=== PATIENT | male | born 1945 | race Caucasian/White ===

== ENCOUNTER 2017-06-18 07:23 | Day surgery (SDC) | payer MEDICARE, BC ==
[2017-06-18] MEDS ORDERED: Lidocaine 2% 20 ML MDV ONE (07:24)
[2017-06-18] MEDS ORDERED: Ketamine 500 mg/10 ML MDV IV ONE (07:24)
[2017-06-18] MEDS ORDERED: Propofol 200 MG/20 ML SDV IV ONE (07:24)
[2017-06-18] MEDS ORDERED: Sodium Chloride 0.9% 10 ML Syringe FLUSH PRN (07:45)
[2017-06-18] MEDS ORDERED: Lactated Ringers 1,000 ML IV SCH (07:45)
--- NOTE | 2017-06-18 09:42 | PCM.OPNOTE ---
- General Post-Op/Procedure Note Date of Surgery/Procedure: 06/18/17 Operative Procedure(s): egd Findings: gastritis fundic gland polyposis esophagitis Pre Op Diagnosis: melena Post-Op Diagnosis: gastritis. fundic gland polyposis. esophagitis Anesthesia Technique: ROSALINDA Primary Surgeon: Jaswant Mendoza Anesthesia Provider: Jaxson Shelton Pathology: none Complications: None Condition: Good Free Text/Narrative:: see dictation
[2017-06-18 10:50] VITALS: BP 138/74
--- NOTE | 2017-06-18 11:25 | OR ---
DATE OF OPERATION: 06/18/2017 SURGEON: Jaswant Mendoza MD PROCEDURE PERFORMED: Upper endoscopy. PREOPERATIVE DIAGNOSIS: History of melena. POSTOPERATIVE DIAGNOSIS: Fundic gland hyperplasia and gastritis as well as some esophagitis. INDICATIONS FOR PROCEDURE: This is a 72-year-old white male who was initially referred to me with a history of a positive FIT exam, who was also relating some GI issues or what appeared to be upper gastrointestinal issues. He does have a history of heart disease and was having some angina, and as a result while it appeared he needed both an upper and lower endoscopy, there was no urgency involved. However, he presented approximately a week later, noting black stools as well as some epigastric abdominal discomfort and we felt that an upper endoscopy was indicated to evaluate for possible peptic ulcer disease. He presents today for his upper endoscopy. Unfortunately, he was told to stop his Plavix 3 days before his procedure, which he failed to do. We did elect to proceed with just a simple endoscopy to look for ulcer disease. DESCRIPTION OF OPERATION: After an excellent IV sedation was administered, the bite block was inserted. Topical anesthetic gargle was also used. The flexible endoscope was passed without difficulty down the patient's esophagus into the stomach. The stomach was insufflated. The scope was passed through the pylorus to the second portion of the duodenum and slowly withdrawn. Following findings are noted. The duodenum was essentially unremarkable. Stomach, fundic gland hyperplasia noted as well as some linear gastritis. Photos were taken. Esophagus, some evidence of esophagitis, but no marked ulcerations or worrisome findings. Remainder of the esophageal exam was unremarkable. We are going to be putting him on some Carafate to take in addition to his Prilosec twice a day. I will have him follow up after his cardiac evaluation to proceed with his colonoscopy, and we will probably do an upper endoscopy at that point when we can do some biopsies. /[id number] /MODL
== END 2017-06-18 10:56 | disposition home or self-care (01) ==
LOC: FB.SDS 07:23
PROVIDERS: ATTEND Surgery
DX: K29.70 Gastritis, unspecified, without bleeding (principal); K21.0 Gastro-esophageal reflux disease with esophagitis; K31.89 Other diseases of stomach and duodenum; I25.10 Atherosclerotic heart disease of native coronary artery without angina pectoris; I10 Essential (primary) hypertension; E11.649 Type 2 diabetes mellitus with hypoglycemia without coma; E78.5 Hyperlipidemia, unspecified; I25.2 Old myocardial infarction; Z79.899 Other long term (current) drug therapy; Z88.0 Allergy status to penicillin; Z88.8 Allergy status to other drugs, medicaments and biological substances; Z95.5 Presence of coronary angioplasty implant and graft; Z87.891 Personal history of nicotine dependence
CPT/HCPCS: 43235; 82962; J2704; J7120; 00731-QZ

== ENCOUNTER 2017-09-11 07:21 | Day surgery (SDC) | payer MEDICARE, BC ==
[2017-09-11] MEDS ORDERED: Lactated Ringers 1,000 ML IV SCH (07:45)
[2017-09-11] MEDS ORDERED: Sodium Chloride 0.9% 10 ML Syringe FLUSH PRN (07:45)
[2017-09-11] MEDS ORDERED: Propofol 200 MG/20 ML SDV IV ONE (09:45)
[2017-09-11] MEDS ORDERED: Ketamine 500 mg/10 ML MDV IV ONE (09:45)
--- NOTE | 2017-09-11 10:50 | PCM.OPNOTE ---
- General Post-Op/Procedure Note Date of Surgery/Procedure: 09/11/17 Operative Procedure(s): c scope with bx Findings: descending colon polyp sigmoid diverticulosis rectal mucosal hyperplasia sigmoid polyp Pre Op Diagnosis: + FIT Post-Op Diagnosis: descending colon polyp. sigmoid diverticulosis. rectal mucosal hyperplasia. sigmoid polyp Anesthesia Technique: MAC Primary Surgeon: Jaswant Mendoza Anesthesia Provider: May Burton Pathology: descending colon polyp rectal mucosal hyperplasia sigmoid polyp Complications: None Condition: Good Free Text/Narrative:: see dictation
[2017-09-11 11:43] VITALS: BP 154/63
--- NOTE | 2017-09-11 14:34 | OR ---
DATE OF OPERATION: 09/11/2017 SURGEON: Jaswant Mendoza MD PROCEDURE PERFORMED: Colonoscopy with cold forceps biopsy. PREOPERATIVE DIAGNOSIS: Positive FIT. POSTOPERATIVE DIAGNOSIS: Descending colon polyp, sigmoid colon polyp x2, sigmoid diverticulosis and hyperplastic polyps of the rectum. INDICATIONS FOR PROCEDURE: This is a 72-year-old white male who is referred with a positive FIT. He was offered and accepted colonoscopy. DESCRIPTION OF OPERATION: After an excellent IV sedation was administered, digital rectal exam was performed. No marked abnormality was noted. The flexible colonoscope was inserted and advanced to the cecum without difficulty. The prep was good. We had to irrigate some areas with good view of the mucosa. The following findings were noted. Ascending colon, unremarkable. Transverse colon, unremarkable. Descending colon, small polypoid lesion. Biopsied and sent for permanent. Sigmoid; in the proximal and distal sigmoid, two small polypoid lesions biopsied with cold biopsy forceps and sent for permanent. Some moderate sigmoid diverticulosis was also noted. Rectum, what appeared to be multiple hyperplastic polyps were noted and loss control representative biopsies were taken of this area as well. The colon was deflated as the scope was removed. The patient tolerated the procedure well. Results by letter. /[id number] /MODL
== END 2017-09-11 11:50 | disposition home or self-care (01) ==
LOC: FB.SDS 07:21
PROVIDERS: ATTEND Surgery
DX: D12.4 Benign neoplasm of descending colon (principal); D12.5 Benign neoplasm of sigmoid colon; K57.30 Diverticulosis of large intestine without perforation or abscess without bleeding; K62.1 Rectal polyp; K63.5 Polyp of colon; I10 Essential (primary) hypertension; E11.649 Type 2 diabetes mellitus with hypoglycemia without coma; E78.5 Hyperlipidemia, unspecified; I25.10 Atherosclerotic heart disease of native coronary artery without angina pectoris; K21.9 Gastro-esophageal reflux disease without esophagitis; Z79.4 Long term (current) use of insulin; Z88.6 Allergy status to analgesic agent; Z88.0 Allergy status to penicillin
CPT/HCPCS: 00812; 45380; 82962; 88305; J2704; J7120

== ENCOUNTER 2018-07-19 09:42 | Emergency (ER) | payer MEDICARE, BC ==
[2018-07-19] MEDS ORDERED: Ibuprofen 600 MG Tab PO ONE (09:54)
--- NOTE | 2018-07-19 09:59 | EDM.PDOC ---
ED HPI GENERAL MEDICAL PROBLEM - General Stated Complaint: FALL, HURT LEFT ANKLE Time Seen by Provider: 07/19/18 09:42 Source of Information: Reports: Patient, Family History Limitations: Reports: No Limitations - History of Present Illness INITIAL COMMENTS - FREE TEXT/NARRATIVE: 73 y.o.w m with a h/o IDDM came with his to the ed afgter he fell under a truck with his left leg. Pt is not able to walk since. he came with is on the wheel chair to the ed. No N/V/D or dizziness or any other acute medical issues. BP 149/72 RR 17 Pulse ox 100% on RA Temp 97.5 Pulse 61 Onset Date: 07/19/18 Onset Time: 08:00 Duration: Hour(s): Location: Reports: Lower Extremity, Left Quality: Reports: Dull, Throbbing Severity: Moderate Improves with: Reports: Rest Worsens with: Reports: Movement Context: Reports: Trauma - Related Data Allergies Allergy/AdvReac Type Severity Reaction Status Date / Time Penicillins Allergy Intermediate Hives Verified 09/10/17 11:25 meloxicam AdvReac Intermediate CHEST PAIN Verified 09/10/17 11:25 WITH WEAKNESS Home Meds: Home Meds Clopidogrel [Plavix] 75 mg PO DAILY 06/17/17 [History] Insulin Glarg,Human.Rec.Analog [Lantus Solostar] 20 unit SUBCUT DAILY 06/17/17 [ History] Lisinopril [Prinivil] 40 mg PO DAILY 06/17/17 [History] Metoprolol Succinate [Toprol Xl] 25 mg PO DAILY 06/17/17 [History] Nitroglycerin [Nitrostat] 0.4 mg SL ASDIRECTED PRN 06/17/17 [History] Omeprazole Magnesium [Prilosec Otc] 20 mg PO BEDTIME 06/17/17 [History] atorvaSTATin [Lipitor] 40 mg PO BEDTIME 06/17/17 [History] glipiZIDE [Glipizide Xl] 10 mg PO BID 06/17/17 [History] Sucralfate [Carafate] 1 gm PO ACBED #120 tab 06/18/17 [Rx] Bismuth Subsalicylate [Pepto-Bismol] 30 ml PO ASDIRECTED 09/10/17 [History] Empagliflozin [Jardiance] 10 mg PO DAILY 09/10/17 [History] Fluticasone Propionate [Flonase] 1 spray NS BID 09/10/17 [History] Isosorbide Mononitrate [Imdur] 30 mg PO DAILY 09/10/17 [History] SitaGLIPtin [Januvia] 100 mg PO DAILY 09/10/17 [History] Past Medical History HEENT History: Reports: Cataract Cardiovascular History: Reports: Angina, High Cholesterol, Hypertension, [place], Stents Respiratory History: Reports: SOB Gastrointestinal History: Reports: Diverticulosis, GERD Genitourinary History: Reports: UTI, Recurrent, Other (See Below) Other Genitourinary History: POST-TRAUMATIC BULBOUS URETHRAL STRICTURE Musculoskeletal History: Reports: None Neurological History: Reports: None Psychiatric History: Reports: None Endocrine/Metabolic History: Reports: Diabetes, Type II Hematologic History: Reports: None Immunologic History: Reports: None Oncologic (Cancer) History: Reports: None Dermatologic History: Reports: Cellulitis Other Dermatologic History: CELLULITIS OF RIGHT LEG POST TRAUMA. - Infectious Disease History Infectious Disease History: Reports: Chicken Pox, Measles, Mumps - Past Surgical History Male Surgical History: Reports: Vasectomy Social & Family History - Family History GI: Reports: Colon Polyps Other GI Family History: DAD OF COLON CA - Caffeine Use Caffeine Use: Reports: Coffee, Soda Review of Systems - Review of Systems Review Of Systems: See Below Constitutional: Reports: No Symptoms Eyes: Reports: No Symptoms Ears: Reports: No Symptoms Nose: Reports: No Symptoms Mouth/Throat: Reports: No Symptoms Respiratory: Reports: No Symptoms Cardiovascular: Reports: No Symptoms GI/Abdominal: Reports: No Symptoms Genitourinary: Reports: No Symptoms Musculoskeletal: Reports: Other (ankle swelling) Skin: Reports: No Symptoms Neurological: Reports: No Symptoms Psychiatric: Reports: No Symptoms ED EXAM, GENERAL - Physical Exam Exam: See Below Exam Limited By: No Limitations General Appearance: Alert, WD/WN, Moderate Distress Eye Exam: Bilateral Eye: Normal Inspection Ears: Normal External Exam Ear Exam: Bilateral Ear: Auricle Normal Nose: Normal Inspection, Normal Mucosa Throat/Mouth: Normal Lips, Normal Voice, No Airway Compromise Head: Atraumatic, Normocephalic Neck: Normal Inspection, Supple, Non-Tender, Full Range of Motion Respiratory/Chest: No Respiratory Distress, Lungs Clear, Normal Breath Sounds Cardiovascular: Normal Peripheral Pulses, Regular Rate, Rhythm, No Edema, No Gallop Peripheral Pulses: 2+: Carotid (L) GI/Abdominal: Normal Bowel Sounds, Soft, Non-Tender, No Organomegaly, No Abnormal Bruit, No Mass, Pelvis Stable (Male) Exam: Deferred Rectal (Males) Exam: Deferred Back Exam: Normal Inspection Extremities: Joint Swelling (left ankle) Neurological: Alert, Oriented, CN II-XII Intact, Normal Cognition, Abnormal Gait (left ankle pain and swelling) Psychiatric: Normal Affect, Normal Mood Skin Exam: Warm, Dry, Intact, Normal Color Lymphatic: No Adenopathy ED TRAUMA EXTREMITY PROCEDURES - Splinting Left Lower Extremity Splint Site: short , posterior splint left lower extremity Pre-Procedure NV Status: Normal Post-Procedure NV Status: Normal Splint Material: Fiberglass Splint Design: Posterior Applied & Form Fitted By: Provider Provider Post-Splint Application NV Check: NV Status Normal, Good Position Complications: No Course - Vital Signs Text/Narrative:: 73 y.o.w m with a h/o IDDM came with his to the ed afgter he fell under a truck with his left leg. Pt is not able to walk since. he came with is on the wheel chair to the ed. No N/V/D or dizziness or any other acute medical issues. BP 149/72 RR 17 Pulse ox 100% on RA Temp 97.5 Pulse 61 PE: WNWD W M with left ankle pain/swelling Imaging: Fx'd mils displace left distal fibula Labs: Not indicated Impression: Left distal fibula fx with displacement Tx: Motrin, Post short splint placement Reexam: Improved Plan: D/C with instructions Last Recorded V/S: Last Vital Signs Temp Pulse Resp 17 07/19/18 12:05 BP 149/72 H 07/19/18 12:05 Pulse Ox 100 07/19/18 12:05 - Orders/Labs/Meds Orders: Active Orders 24 hr Category Date Time Status Accu Check [Blood Glucose Check, Bedside] [RC] ONETIME Care 07/19/18 09:56 Active Cooling Warming Measures [RC] ASDIRECTED Care 07/19/18 09:54 Active Ankle Min 3V Lt [CR] Stat Exams 07/19/18 09:54 Taken Ice Bag [Ice Therapy] [OM.PC] Routine Oth 07/19/18 09:54 Ordered Meds: Medications Discontinued Medications Generic Name Dose Route Start Last Admin Trade Name Candace PRN Reason Stop Dose Admin Ibuprofen 600 mg 07/19/18 09:54 07/19/18 10:07 Motrin PO 07/19/18 09:55 600 mg ONETIME ONE Administration Departure - Departure Time of Disposition: 11:53 Disposition: Home, Self-Care 01 Condition: Good Clinical Impression: Fibula fracture Qualifiers: Encounter type: initial encounter Fracture type: closed Laterality: left - Discharge Information Referrals: Jose R Shahid MD [Primary Care Provider] - Ritchie Granados DO [Physician] - Forms: ED Department Discharge Additional Instructions: Rest, Ice elevation, please use crutches, no weight bearing. Please f/u with Dr. Granados this Friday. Motrin for pain. Please come back if your symptoms get worse acutely - My Orders Last 24 Hours: My Active Orders 07/19/18 09:54 Cooling Warming Measures [RC] ASDIRECTED Ankle Min 3V Lt [CR] Stat Ice Bag [Ice Therapy] [OM.PC] Routine 07/19/18 09:56 Accu Check [Blood Glucose Check, Bedside] [RC] ONETIME - Assessment/Plan Last 24 Hours: My Active Orders 07/19/18 09:54 Cooling Warming Measures [RC] ASDIRECTED Ankle Min 3V Lt [CR] Stat Ice Bag [Ice Therapy] [OM.PC] Routine 07/19/18 09:56 Accu Check [Blood Glucose Check, Bedside] [RC] ONETIME
[2018-07-19 12:11] VITALS: BP 149/72
--- NOTE | 2018-07-20 10:39 | CR ---
INDICATION: Slipped and rolled ankle. LEFT ANKLE: Three views of the left ankle were obtained, 07/19/18 - no comparisons. Soft tissue swelling is noted about the ankle, most prominent medially. The ankle mortise appeared to be slightly askew with widening at the medial ankle mortise and very minimal inversion of the talus with respect to the tibia. An oblique fracture through the distal shaft and metaphysis of the fibula is noted with mild deformity - posterior and lateral offset of the distal fracture fragment of approximately 3-4 mm. 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 Plantar and posterior calcaneal spurs of small size are noted. IMPRESSION: Lateral malleolar fracture with subluxation at the ankle mortise - lateral subluxation minimally of the talus with slight inversion of the talus. Ligamental injury medially is suspected. The ankle mortise may be unstable - followup studies such as MRI may be helpful for further evaluation, depending upon clinical correlation. DEX
== END 2018-07-19 12:24 | disposition home or self-care (01) ==
LOC: FB.ED 09:42
DX: S82.832A Other fracture of upper and lower end of left fibula, initial encounter for closed fracture (principal); I25.2 Old myocardial infarction; I10 Essential (primary) hypertension; E11.9 Type 2 diabetes mellitus without complications; Z88.0 Allergy status to penicillin; Z88.1 Allergy status to other antibiotic agents; Z79.899 Other long term (current) drug therapy; V98.8XXA Other specified transport accidents, initial encounter
CPT/HCPCS: 29515; 73610-LT; 99283; A9270-GY

== ENCOUNTER 2020-04-18 06:40 | Day surgery (SDC) | payer MEDICARE, BC ==
[2020-04-18] MEDS ORDERED: fentaNYL 100 MCG/2 ML SDV IV ONE (06:41)
[2020-04-18] MEDS ORDERED: Midazolam 1 MG/ML 2 ML SDV IV ONE (06:41)
[2020-04-18] MEDS ORDERED: Sodium Chloride 0.9% 10 ML Syringe FLUSH PRN (06:45)
[2020-04-18] MEDS ORDERED: Lactated Ringers 1,000 ML IV SCH (06:45)
[2020-04-18] MEDS ORDERED: acetaZOLAMIDE 500 MG Cap.ER PO ONE (08:30)
--- NOTE | 2020-04-18 10:57 | OR ---
DATE OF OPERATION: 04/18/2020 SURGEON: Ana Rivas MD PREOPERATIVE DIAGNOSIS: Visually significant cataract, right eye. POSTOPERATIVE DIAGNOSIS: Visually significant cataract, right eye. PROCEDURES PERFORMED: Phacoemulsification with intraocular lens placement, right eye. ASSISTANTS: None. ANESTHESIA: Local with sedation. COMPLICATIONS: None. BLOOD LOSS: None. IMPLANTS: An Sivakumar ACU0T0, 22.0 diopter lens, serial number [id number] implanted. CDE: 6.52. DESCRIPTION OF PROCEDURE: After risks and benefits were reviewed with the patient, consent was obtained in the preoperative area, and the operative eye was marked with a surgical pen. In the preoperative area, a pledget was used to dilate the pupil consisting of a mixture of phenylephrine 10%, cyclopentolate 2%, moxifloxacin 0.5%, and bupivacaine 0.75%. The patient was taken to the operating room, where a time-out was performed, and the patient was placed under monitored anesthesia care. Topical tetracaine was used for anesthesia. The operative eye was prepped and draped for ophthalmic surgery, and the microscope was brought into position and focused. A paracentesis incision was made, followed by injection of preservative-free 1% lidocaine into the anterior chamber, followed by injection of Viscoat into the anterior chamber. A microkeratome blade was used to make a corneal limbal incision temporally. A cystotome was used to make the beginning of the capsulorrhexis, which was carried around 360 degrees in a curvilinear fashion using Utrata forceps. A Rodriguez cannula with BSS was used to hydrodissect and hydrodelineate the nucleus. The nucleus was removed in a divide and conquer manner using phacoemulsification. Irrigation and aspiration were used to remove the remaining cortical material. Provisc was used to inflate the capsular bag, and a pre-loaded Sivakumar ACU0T0, 22.0 diopter lens, serial number [id number] was injected into the capsular bag. A Sinskey hook was used to position and center the lens. Next, irrigation and aspiration was used to remove any remaining viscoelastic and cortical material from the anterior chamber. BSS on a cannula was used to inflate the anterior chamber and hydrate the wound. The wound was checked and found to be watertight. 1 mg of Moxifloxacin was injected into the anterior chamber. Drapes were removed and the eye was cleaned. A drop of brimonidine 0.15% and a drop of TobraDex was placed. The eye was shielded, and the patient was taken to the recovery room in stable condition. /[id number] EMMANUEL/LUZ
[2020-04-18 14:42] VITALS: BP 135/72; PULSE 59
== END 2020-04-18 09:15 | disposition home or self-care (01) ==
LOC: FB.SDS 06:40
PROVIDERS: ATTEND Ophthalmology
DX: E11.36 Type 2 diabetes mellitus with diabetic cataract (principal); H25.13 Age-related nuclear cataract, bilateral; I25.10 Atherosclerotic heart disease of native coronary artery without angina pectoris; H35.033 Hypertensive retinopathy, bilateral; H43.813 Vitreous degeneration, bilateral; H35.031 Hypertensive retinopathy, right eye; E11.319 Type 2 diabetes mellitus with unspecified diabetic retinopathy without macular edema; I10 Essential (primary) hypertension; Z88.0 Allergy status to penicillin; Z79.899 Other long term (current) drug therapy; Z79.4 Long term (current) use of insulin
CPT/HCPCS: 00142; 66984; A9270; J2250; J3010; J7120; V2632; 82962

== ENCOUNTER 2020-05-02 06:45 | Day surgery (SDC) | payer MEDICARE, BC ==
[~2020-05-02 06:45] MED LIST: Lactated Ringers 1,000 ML IV SCH; Sodium Chloride 0.9% 10 ML Syringe FLUSH PRN
[2020-05-02] MEDS ORDERED: Midazolam 1 MG/ML 2 ML SDV IV ONE (06:46)
[2020-05-02] MEDS ORDERED: fentaNYL 100 MCG/2 ML SDV IV ONE (06:46)
[2020-05-02] MEDS ORDERED: acetaZOLAMIDE 500 MG Cap.ER PO ONE (08:30)
[2020-05-02 10:51] VITALS: BP 146/76; PULSE 69
--- NOTE | 2020-05-03 09:59 | OR ---
DATE OF OPERATION: 05/02/2020 SURGEON: Ana Rivas MD PREOPERATIVE DIAGNOSIS: Visually significant cataract, left eye. POSTOPERATIVE DIAGNOSIS: Visually significant cataract, left eye. PROCEDURES PERFORMED: Phacoemulsification with intraocular lens placement, left eye. ASSISTANTS: None. ANESTHESIA: Local with sedation. COMPLICATIONS: None. BLOOD LOSS: None. IMPLANTS: An Sivakumar ACU0T0, 22.0 diopter lens implanted. CDE: 4.22. DESCRIPTION OF PROCEDURE: After risks and benefits were reviewed with the patient, consent was obtained in the preoperative area, and the operative eye was marked with a surgical pen. In the preoperative area, a pledget was used to dilate the pupil consisting of a mixture of phenylephrine 10%, cyclopentolate 2%, moxifloxacin 0.5%, and bupivacaine 0.75%. The patient was taken to the operating room, where a time-out was performed, and the patient was placed under monitored anesthesia care. Topical tetracaine was used for anesthesia. The operative eye was prepped and draped for ophthalmic surgery, and the microscope was brought into position and focused. A paracentesis incision was made, followed by injection of preservative-free 1% lidocaine into the anterior chamber, followed by injection of Viscoat into the anterior chamber. A microkeratome blade was used to make a corneal limbal incision temporally. A cystotome was used to make the beginning of the capsulorrhexis, which was carried around 360 degrees in a curvilinear fashion using Utrata forceps. A Rodriguez cannula with BSS was used to hydrodissect and hydrodelineate the nucleus. The nucleus was removed in a divide and conquer manner using phacoemulsification. Irrigation and aspiration were used to remove the remaining cortical material. Provisc was used to inflate the capsular bag, and a pre-loaded Sivakumar ACU0T0, 22.0 diopter lens, serial number [id number] was injected into the capsular bag. A Sinskey hook was used to position and center the lens. Next, irrigation and aspiration was used to remove any remaining viscoelastic and cortical material from the anterior chamber. BSS on a cannula was used to inflate the anterior chamber and hydrate the wound. The wound was checked and found to be watertight. 1 mg of Moxifloxacin was injected into the anterior chamber. Drapes were removed and the eye was cleaned. A drop of brimonidine 0.15% and a drop of TobraDex was placed. The eye was shielded, and the patient was taken to the recovery room in stable condition. /[id number] EMMANUEL/LUZ
== END 2020-05-02 09:15 | disposition home or self-care (01) ==
LOC: FB.SDS 06:45
PROVIDERS: ATTEND Ophthalmology
DX: E11.36 Type 2 diabetes mellitus with diabetic cataract (principal); H25.12 Age-related nuclear cataract, left eye; H35.033 Hypertensive retinopathy, bilateral; H43.813 Vitreous degeneration, bilateral
CPT/HCPCS: 00142-QZ; A9270-GY; J2250; J3010; J7120; V2632

== ENCOUNTER 2020-06-21 15:58 | Inpatient (IN) | payer MEDICARE, BC ==
[2020-06-21] MEDS ORDERED: Ondansetron 4 MG Tab.DIS PO PRN (16:55)
[2020-06-21] MEDS ORDERED: Sodium Chloride 0.9% 10 ML Syringe FLUSH PRN (16:55)
[2020-06-21] MEDS ORDERED: Glucagon,Human Recombinant 1 MG Vial IM PRN (17:02)
[2020-06-21] MEDS ORDERED: 50% Dextrose in Water 50 ML Syringe IVPUSH PRN (17:02)
[2020-06-21] MEDS ORDERED: Albuterol 8 GM Inhaler INH PRN (17:03)
[2020-06-21] MEDS ORDERED: Nitroglycerin 0.4 MG Tab.SL SL PRN (17:03)
[2020-06-21] MEDS: Sodium Chloride 0.9% 1,000 ML IV SCH (17:17)
[2020-06-21] MEDS: Dexamethasone 4 MG/ML 5 ML MDV IVPUSH SCH (17:20)
--- NOTE | 2020-06-21 17:20 | PCM.HP.2 ---
H&P History of Present Illness - General Date of Service: 06/21/20 Admit Problem/Dx: Admission Diagnosis/Problem Admission Diagnosis/Problem Pneumonia Source of Information: Patient, Provider History Limitations: Reports: Physical Impairment (hard of hearing & some neurocognitive issues) - History of Present Illness Initial Comments - Free Text/Narative: Jose R was seen in [facility] today for 7 days of fever, fatigue, shortness of breath, cough, runny nose but no sore throat, chest pain, nausea, vomiting, diarrhea, constipation. Denies any dysuria, frequency, dark urine. States his last bowel movement was yesterday, yellow chunks but not liquid. Temp in clinic today was 101F, Covid was positive and had bilateral infiltrates on chest x-ray, no other labs done in clinic. He is very hard of hearing and has some neurocognitive deficits, on Aricept. History of Diabetes on insulin, poorly controlled, pacemaker, hypertension, cataract repair, colon polyps, GERD. - Related Data Allergies/Adverse Reactions: Allergies Allergy/AdvReac Type Severity Reaction Status Date / Time Penicillins Allergy Intermediate Hives Verified 05/02/20 07:24 iodine Allergy Rash Verified 05/02/20 07:24 meloxicam AdvReac Intermediate Dizziness Verified 05/02/20 07:24 Home Medications: Home Meds Clopidogrel [Plavix] 75 mg PO DAILY 06/17/17 [History] Metoprolol Succinate [Toprol Xl] 25 mg PO DAILY 06/17/17 [History] Nitroglycerin [Nitrostat] 0.4 mg SL ASDIRECTED PRN 06/17/17 [History] Omeprazole Magnesium [Prilosec Otc] 20 mg PO BEDTIME 06/17/17 [History] atorvaSTATin [Lipitor] 40 mg PO BEDTIME 06/17/17 [History] glipiZIDE [Glipizide Xl] 10 mg PO BID 06/17/17 [History] Albuterol Sulfate [Albuterol Sulfate Hfa] 2 puff PO Q4HR PRN 04/17/20 [History] Insulin Detemir [Levemir Flextouch] 20 unit SQ BID 04/17/20 [History] SitaGLIPtin [Januvia] 100 mg PO DAILY 04/17/20 [History] Triamcinolone Acetonide [Kenalog 0.1% Crm] 1 applic TOP BID 04/17/20 [History] Acetaminophen 650 mg PO Q6H PRN 06/21/20 [History] Donepezil [Aricept] 5 mg PO BEDTIME 06/21/20 [History] Past Medical History HEENT History: Reports: Cataract, Impaired Vision Cardiovascular History: Reports: Angina, High Cholesterol, Hypertension, [place], Pacemaker, Stents Respiratory History: Reports: SOB Gastrointestinal History: Reports: Diverticulosis, GERD Genitourinary History: Reports: UTI, Recurrent, Other (See Below) Other Genitourinary History: POST-TRAUMATIC BULBOUS URETHRAL STRICTURE Musculoskeletal History: Reports: None Neurological History: Reports: None Psychiatric History: Reports: None Endocrine/Metabolic History: Reports: Diabetes, Type II Hematologic History: Reports: None Immunologic History: Reports: None Oncologic (Cancer) History: Reports: None Dermatologic History: Reports: Cellulitis Other Dermatologic History: CELLULITIS OF RIGHT LEG POST TRAUMA. - Infectious Disease History Infectious Disease History: Reports: Chicken Pox, Measles, Mumps - Past Surgical History Head Surgeries/Procedures: Reports: None HEENT Surgical History: Reports: Cataract Surgery Cardiovascular Surgical History: Reports: Coronary Artery Stent GI Surgical History: Reports: Colonoscopy, EGD Male Surgical History: Reports: Vasectomy Other Male Surgeries/Procedures: CYSTOSCOPY, STENT PLACEMENT TO KIDNEY Social & Family History - Family History Family Medical History: No Pertinent Family History GI: Reports: Colon Polyps Other GI Family History: DAD OF [place]ON [place] - Tobacco Use Tobacco Use Status *Q: Former Tobacco User Used Tobacco, but Quit: Yes Month/Year Tobacco Last Used: 20 years ago - Caffeine Use Caffeine Use: Reports: Soda - Recreational Drug Use Recreational Drug Use: No H&P Review of Systems - Review of Systems: Review Of Systems: Comprehensive ROS is negative, except as noted in HPI. Exam - Exam Exam: See Below - Vital Signs Vital Signs: Last Vital Signs Temp 98.8 F 06/21/20 16:30 Pulse 76 06/21/20 16:30 Resp 20 06/21/20 16:30 BP 139/68 06/21/20 16:30 Pulse Ox 91 L 06/21/20 16:30 Weight: 241 lb 14.4 oz - Exam Quality Assessment: Supplemental Oxygen General: Alert, Oriented (person, place), Cooperative, Mild Distress HEENT: PERRLA, Conjunctiva Clear, EACs Clear, EOMI, Mucosa Moist & [place]. No: Hearing Intact Neck: Supple, Trachea Midline. No: Lymphadenopathy Lungs: Clear to Auscultation (RML, BUL), Normal Respiratory Effort, Decreased Breath Sounds (bibasilar), Crackles (bibasilar) Cardiovascular: Regular Rate, Regular Rhythm. No: Systolic Murmur GI/Abdominal Exam: Normal Bowel Sounds, Soft, Non-Tender, No Distention (Male) Exam: Deferred Rectal (Males) Exam: Deferred Extremities: Normal Inspection, No Pedal Edema, Normal Capillary Refill Peripheral Pulses: 2+: Radial (L), Radial (R) Skin: Warm, Dry, Intact - Patient Data Lab Results Last 24 hrs: CBC, CMP, PTT, CRP, ABG pending Imaging Impressions Last 24 hrs: Bilateral patchy infiltrates on [facility] Chest x-ray Sepsis Event Note - Focused Exam Vital Signs: Vital Signs Temp Pulse Resp BP Pulse Ox 06/21/20 16:30 98.8 F 76 20 139/68 91 L *Q Meaningful Use (ADM) - VTE Risk Assess *Q Each Risk Factor Represents 1 Point: Obesity ( BMI > 25 kg/m2), Serious lung disease including pneumonia Total Score 1 Point Risk Factors: 2 Each Risk Factor Represents 2 Points: None Total Score 2 Point Risk Factors: 0 Each Risk Factor Represents 3 Points: Age 75 Years or Greater Total Score 3 Point Risk Factors: 3 Each Risk Factor Represents 5 Points: None Total Score 5 Point Risk Factors: 0 Venous Thromboembolism Risk Factor Score *Q: 5 - Problem List (1) COVID-19 SNOMED Code(s): 065450318 ICD Code: U07.1 - COVID-19 Status: Acute Current Visit: Yes (2) Viral pneumonia SNOMED Code(s): 26696127 ICD Code: J12.9 - VIRAL PNEUMONIA, UNSPECIFIED Status: Acute Current Visit: Yes (3) Hypoxic SNOMED Code(s): 444942280 ICD Code: R09.02 - HYPOXEMIA Status: Acute Current Visit: Yes (4) Diabetes SNOMED Code(s): 90807836 ICD Code: E11.9 - TYPE 2 DIABETES MELLITUS WITHOUT COMPLICATIONS Status: [facility] Current Visit: Yes Qualifiers: Diabetes mellitus half-way insulin use: with keno terminal operator use (5) GERD (gastroesophageal reflux disease) SNOMED Code(s): 599741316 ICD Code: K21.9 - GASTRO-ESOPHAGEAL REFLUX DISEASE WITHOUT ESOPHAGITIS Status: Chronic Priority: Medium Current Visit: No Qualifiers: Esophagitis presence: with esophagitis (6) Neurocognitive deficits SNOMED Code(s): 074093447 ICD Code: R29.818 - OTHER SYMPTOMS AND SIGNS INVOLVING THE NERVOUS SYSTEM; R41.89 - OTH SYMPTOMS AND SIGNS W COGNITIVE FUNCTIONS AND AWARENESS Status: Chronic Current Visit: Yes (7) Palliative care patient SNOMED Code(s): 497147056, 010440363 ICD Code: Z51.5 - ENCOUNTER FOR PALLIATIVE CARE Status: Chronic Current Visit: Yes (8) CHF (congestive heart failure) SNOMED Code(s): 95588849 ICD Code: I50.9 - HEART FAILURE, UNSPECIFIED Status: Chronic Current Visit: Yes Problem Details: Echo in 09/2017, EF of 65% Qualifiers: Heart failure type: unspecified Problem List Initiated/Reviewed/Updated: Yes Orders Last 24hrs: Active Orders 24 hr Category Date Time Status Patient Status [ADT] Routine ADT 06/21/20 16:55 Active Blood Glucose Check, Bedside [RC] QIDACANDBED Care 06/21/20 16:55 Active Incentive Spirometry [RT Incentive Spirometry] [RC] Care 06/21/20 17:08 Active Q1HWA Nurse Communication: Isolation [RC] ASDIRECTED Care 06/21/20 17:02 Active Oxygen Therapy [RC] PRN Care 06/21/20 16:55 Active RT Post Treatment Assessment [RC] Click to Edit Care 06/21/20 17:04 Active Up With Assistance [RC] ASDIRECTED Care 06/21/20 16:55 Active Up to Chair [RC] ASDIRECTED Care 06/21/20 16:55 Active VTE/DVT Education [RC] Per Unit Routine Care 06/21/20 16:55 Active Vital Signs [RC] Q4H Care 06/21/20 16:55 Active Consistent Carbohydrate Diet [DIET] Diet 06/21/20 Dinner Active BLOOD GAS ARTERIAL [BG] Stat Lab 06/21/20 16:55 Ordered C-REACTIVE PROTEIN [CHEM] Stat Lab 06/21/20 16:55 Ordered CBC WITH AUTO DIFF [HEME] Routine Lab 06/22/20 06:00 Ordered CBC WITH AUTO DIFF [HEME] Stat Lab 06/21/20 16:55 Ordered COMPREHENSIVE METABOLIC PN,CMP [CHEM] Routine Lab 06/22/20 06:00 Ordered COMPREHENSIVE METABOLIC PN,CMP [CHEM] Stat Lab 06/21/20 16:55 Ordered PTT,PARTIAL THROMBOPLSTIN TIME [COAG] Stat Lab 06/21/20 16:55 Ordered Acetaminophen [TylenoL] Med 06/21/20 16:55 Active 650 mg PO Q4H PRN Albuterol [Ventolin HFA] Med 06/21/20 17:03 Active 0 gm INH Q4H PRN Clopidogrel [Plavix] Med 06/22/20 09:00 Active 75 mg PO DAILY Dextrose 50% in Water Med 06/21/20 17:02 Active 50 ml IVPUSH ASDIRECTED PRN Donepezil [Aricept] Med 06/21/20 21:00 Active 5 mg PO BEDTIME Glucagon,Human Recombinant [GlucaGen] Med 06/21/20 17:02 Active 1 mg IM ASDIRECTED PRN Insulin Glarg,Human.Rec.Analog [LantUS Solostar] Med 06/21/20 21:00 Active 20 units SUBCUT BID Insulin Lispro [HumaLOG] Med 06/21/20 18:00 Active See Protocol SUBCUT TIDMEALS Metoprolol Succinate [Toprol XL] Med 06/22/20 09:00 Active 25 mg PO DAILY Nitroglycerin [Nitrostat] Med 06/21/20 17:03 Active 0.4 mg SL ASDIRECTED PRN Ondansetron [Zofran ODT] Med 06/21/20 16:55 Active 4 mg PO Q6H PRN Pantoprazole [ProTONIX] Med 06/21/20 21:00 Active 40 mg PO BEDTIME SitaGLIPtin [Januvia] Med 06/22/20 09:00 Active 100 mg PO DAILY Sodium Chloride 0.9% [Normal Saline] 1,000 ml Med 06/21/20 17:00 Active IV ASDIRECTED Sodium Chloride 0.9% [Saline Flush] Med 06/21/20 16:55 Active 10 ml FLUSH ASDIRECTED PRN atorvaSTATin [Lipitor] Med 06/21/20 21:00 Active 40 mg PO BEDTIME dexAMETHasone Med 06/21/20 17:15 Active 6 mg IVPUSH DAILY glipiZIDE [Glucotrol XL] Med 06/21/20 21:00 Active 10 mg PO BID Antiembolic Hose [OM.PC] Per Unit Routine Oth 06/21/20 16:56 Ordered Isolation [COMM] Stat Oth 06/21/20 17:02 Ordered Saline Lock Insert [OM.PC] Routine Oth 06/21/20 16:55 Ordered Resuscitation Status Routine Resus Stat 06/21/20 16:55 Ordered Medication Orders Acetaminophen (Tylenol) 650 mg PO Q4H PRN PRN Reason: Pain (Mild 1-3)/fever Albuterol (Ventolin Hfa) 0 gm INH Q4H PRN PRN Reason: Wheezing Atorvastatin Calcium (Lipitor) 40 mg PO BEDTIME TONIE Clopidogrel Bisulfate (Plavix) 75 mg PO DAILY TONIE Dexamethasone (Dexamethasone) 6 mg IVPUSH DAILY TONIE Stop: 07/01/20 17:16 Dextrose/Water (Dextrose 50% In Water) 50 ml IVPUSH ASDIRECTED PRN PRN Reason: Hypoglycemia Donepezil HCl (Aricept) 5 mg PO BEDTIME TONIE Glipizide (Glucotrol Xl) 10 mg PO BID TONIE Glucagon (Glucagen) 1 mg IM ASDIRECTED PRN PRN Reason: Hypoglycemia Sodium Chloride (Normal Saline) 1,000 mls @ 100 mls/hr IV ASDIRECTED [facility] Insulin Glargine (Lantus Solostar) 20 units SUBCUT BID [facility] Insulin Human Lispro (Humalog) 0 unit SUBCUT TIDMEALS TONIE; Protocol Metoprolol Succinate (Toprol Xl) 25 mg PO DAILY TONIE Nitroglycerin (Nitrostat) 0.4 mg SL ASDIRECTED PRN PRN Reason: Chest Pain Ondansetron HCl (Zofran Odt) 4 mg PO Q6H PRN PRN Reason: nausea, able to take PO Pantoprazole Sodium (Protonix) 40 mg PO BEDTIME TONIE Sitagliptin Phosphate (Januvia) 100 mg PO DAILY [facility] Sodium Chloride (Saline Flush) 10 ml FLUSH ASDIRECTED PRN PRN Reason: Keep Vein Open Assessment/Plan Comment:: 1. Admit to inpatient status for viral pneumonia, COVID positive, Diabetic. 2. CBC, CMP, PTT, ABG, CRP, procalcitonin pending. Dexamethasone 6 mg IV daily, will hold off on Remdesivir until chemistry is back. Oxygen to keep sats >94% by nasal cannula. Repeat labs tomorrow. NS at 100 ml/hr. 3. DM: Accuchecks qidac&hs, Consistent carb diet, Lantus substitute for Levemir 20 units bid, Humalog sliding scale. Continue home oral medications. 4. DVT: Vinicio BLE, Plavix 75 mg daily, hold off on Lovenox until we get his chemistry. 5. CODE STATUS: FULL. - Mortality Measure Prognosis:: Poor
[2020-06-21 18:36] LABS: PCO2 ARTERIAL,POC 30 mmHg (35-48); PH ARTERIAL,POC 7.5 pH (7.35-7.45); PO2 ARTERIAL,POC 56 mmHg (83-108)
[2020-06-21] MEDS ORDERED: REMDESIVIR 200 MG in Sodium Chloride 0.9% 250 ML IV ONE (19:47)
[2020-06-21] MEDS: Insulin Lispro 100 Unit/ML 3 ML KwikPen SUBCUT SCH (19:48)
[2020-06-21] MEDS ORDERED: Insulin Glargine,Human Rec. Analog 100 Units/ML 3 ML Pen SUBCUT ONE (20:00)
[2020-06-21] MEDS: Donepezil 5 MG Tab PO SCH (20:22)
[2020-06-21] MEDS: Potassium Chloride 20 MEQ Tab.ER PO SCH (20:22)
[2020-06-21] MEDS: Pantoprazole 40 MG Tab.CR PO SCH (20:23)
[2020-06-21] MEDS: atorvaSTATin 40 MG Tab PO SCH (20:23)
[2020-06-21] MEDS: Acetaminophen 325 MG Tab PO PRN (20:52)
[2020-06-21] MEDS ORDERED: Insulin Glargine,Human Rec. Analog 100 Units/ML 3 ML Pen SUBCUT SCH (21:00)
[2020-06-21] MEDS ORDERED: glipiZIDE 10 MG Tab.ER PO SCH (21:00)
[2020-06-22] MEDS: Sodium Chloride 0.9% 1,000 ML IV SCH ×2 (04:10→14:09)
[2020-06-22] MEDS ORDERED: Insulin Lispro 100 Unit/ML 3 ML KwikPen SUBCUT ONE (08:53)
[2020-06-22] MEDS: Insulin Lispro 100 Unit/ML 3 ML KwikPen SUBCUT SCH ×3 (08:57→18:59)
[2020-06-22] MEDS: Dexamethasone 4 MG/ML 5 ML MDV IVPUSH SCH (09:02)
[2020-06-22] MEDS: Clopidogrel 75 MG Tab PO SCH (09:03)
[2020-06-22] MEDS: Potassium Chloride 20 MEQ Tab.ER PO SCH ×2 (09:03→20:37)
[2020-06-22] MEDS: Metoprolol Succinate 25 MG Tab.ER PO SCH (09:03)
[2020-06-22] MEDS: Insulin Glargine,Human Rec. Analog 100 Units/ML 3 ML Pen SUBCUT SCH ×2 (09:04→20:47)
--- NOTE | 2020-06-22 13:48 | PCM.PN ---
- General Info Date of Service: 06/22/20 Subjective Update: Alexandru is very hard of hearing but states he feels same, short of breath, sugars were low last night, held Glipizide, up to 311 this morning after dexamethasone yesterday. He is stable on 5L, has been more emotional since admission. Spiritual services will see. Spoke with his on phone, she will bring in rocket motor tester cord so she can talk with him on his cell phone. No nausea, vomiting, chest pain or diarrhea. - Patient Data Vitals - Most Recent: Last Vital Signs Temp 97.3 F 06/22/20 08:00 Pulse 93 06/22/20 09:03 Resp 20 06/22/20 08:00 BP 131/74 06/22/20 09:03 Pulse Ox 93 L 06/22/20 08:00 Weight - Most Recent: 241 lb 14.4 oz I&O - Last 24 Hours: Intake & Output 06/21/20 06/22/20 06/22/20 22:59 06:59 14:59 Intake Total 1446 Balance 1446 Lab Results Last 24 Hours: Laboratory Results - last 24 hr 06/21/20 06/21/20 06/21/20 Range/Units 17:37 18:15 18:20 WBC 4.3 (3.2-10.1) x10-3/uL RBC 4.43 (3.90-5.90) x10(6)uL Hgb 12.6 L (12.9-17.7) g/dL Hct 37.9 L (38.3-50.1) % MCV 85.7 (80.8-98.7) fL MCH 28.5 (27.0-33.3) pg MCHC 33.3 (28.7-35.3) g/dL RDW 15.0 (12.4-15.0) % Plt Count 94 L (117-477) x10(3)uL MPV 9.5 (6.7-11.0) fL Neut % (Auto) 77.5 H (40.3-71.8) % Lymph % (Auto) 12.8 L (15.8-45.3) % [place] % (Auto) 9.3 (5.5-15.2) % Eos % (Auto) 0.2 (0.1-6.8) % Baso % (Auto) 0.2 L (0.3-3.8) % Neut # (Auto) 3.3 (1.7-6.9) x10-3/uL Lymph # (Auto) 0.6 (0.5-4.5) x10-3/uL [place] # (Auto) 0.4 (0.0-1.2) x10-3/uL Eos # (Auto) 0.0 (0.0-0.6) x10-3/uL Baso # (Auto) 0.0 (0.0-0.3) x10-3/uL Add Manual Diff Neutrophils % (Manual) (46-82) % Band Neutrophils % (0-6) % Lymphocytes % (Manual) (13-37) % Monocytes % (Manual) (4-12) % Giant Platelets Anisocytosis APTT (24.4-33.2) SECONDS POC ABG pH 7.5 H (7.35-7.45) pH POC ABG pCO2 30 L (35-48) mmHg POC ABG pO2 56 L (83-108) mmHg POC ABG HCO3 22 (21-28) mmol/L ABG O2 Sat (Calculated) 91.2 L (94-98) % POC ABG Base Excess -2 (-2-3) mmol/L Adiel Test Pass (PASS) O2 Delivery Device Nasal cannula Sodium (135-145) mmol/L Potassium (3.5-5.3) mmol/L Chloride (100-110) mmol/L Carbon Dioxide (21-32) mmol/L BUN (7-18) mg/dL Creatinine (0.70-1.30) mg/dL Est Cr Clr Drug Dosing mL/min Estimated GFR (MDRD) (>60) BUN/Creatinine Ratio (9-20) Glucose (80-116) mg/dL POC Glucose 70 L (74-100) mg/dL Calcium (8.6-10.2) mg/dL Total Bilirubin (0.1-1.3) mg/dL AST (5-25) IU/L ALT (12-36) U/L Alkaline Phosphatase (56-112) IU/L C-Reactive Protein (0.5-0.9) mg/dL Total Protein (6.0-8.0) g/dL Albumin (3.2-4.6) g/dL Globulin g/dL Albumin/Globulin Ratio 06/21/20 06/21/20 06/21/20 Range/Units 18:20 18:20 18:20 WBC (3.2-10.1) x10-3/uL RBC (3.90-5.90) x10(6)uL Hgb (12.9-17.7) g/dL Hct (38.3-50.1) % MCV (80.8-98.7) fL MCH (27.0-33.3) pg MCHC (28.7-35.3) g/dL RDW (12.4-15.0) % Plt Count (117-477) x10(3)uL MPV (6.7-11.0) fL Neut % (Auto) (40.3-71.8) % Lymph % (Auto) (15.8-45.3) % [place] % (Auto) (5.5-15.2) % Eos % (Auto) (0.1-6.8) % Baso % (Auto) (0.3-3.8) % Neut # (Auto) (1.7-6.9) x10-3/uL Lymph # (Auto) (0.5-4.5) x10-3/uL [place] # (Auto) (0.0-1.2) x10-3/uL Eos # (Auto) (0.0-0.6) x10-3/uL Baso # (Auto) (0.0-0.3) x10-3/uL Add Manual Diff Neutrophils % (Manual) (46-82) % Band Neutrophils % (0-6) % Lymphocytes % (Manual) (13-37) % Monocytes % (Manual) (4-12) % Giant Platelets Anisocytosis APTT 33.1 (24.4-33.2) SECONDS POC ABG pH (7.35-7.45) pH POC ABG pCO2 (35-48) mmHg POC ABG pO2 (83-108) mmHg POC ABG HCO3 (21-28) mmol/L ABG O2 Sat (Calculated) (94-98) % POC ABG Base Excess (-2-3) mmol/L Adiel Test (PASS) O2 Delivery Device Sodium 133 L (135-145) mmol/L Potassium 3.0 L (3.5-5.3) mmol/L Chloride 98 L (100-110) mmol/L Carbon Dioxide 24 (21-32) mmol/L BUN 13 (7-18) mg/dL Creatinine 1.0 (0.70-1.30) mg/dL Est Cr Clr Drug Dosing 71.02 mL/min Estimated GFR (MDRD) > 60 (>60) BUN/Creatinine Ratio 13.0 (9-20) Glucose 72 L (80-116) mg/dL POC Glucose (74-100) mg/dL Calcium 8.1 L (8.6-10.2) mg/dL Total Bilirubin 0.8 (0.1-1.3) mg/dL AST 51 H (5-25) IU/L ALT 29 (12-36) U/L Alkaline Phosphatase 79 (56-112) IU/L C-Reactive Protein 16.4 H* (0.5-0.9) mg/dL Total Protein 6.6 (6.0-8.0) g/dL Albumin 2.8 L (3.2-4.6) g/dL Globulin 3.8 g/dL Albumin/Globulin Ratio 0.7 06/21/20 06/22/20 06/22/20 Range/Units 20:20 06:01 07:19 WBC 2.9 L (3.2-10.1) x10-3/uL RBC 4.68 (3.90-5.90) x10(6)uL Hgb 13.4 (12.9-17.7) g/dL Hct 39.2 (38.3-50.1) % MCV 83.7 (80.8-98.7) fL MCH 28.6 (27.0-33.3) pg MCHC 34.1 (28.7-35.3) g/dL RDW 15.2 H (12.4-15.0) % Plt Count 102 L (117-477) x10(3)uL MPV 9.1 (6.7-11.0) fL Neut % (Auto) (40.3-71.8) % Lymph % (Auto) (15.8-45.3) % [place] % (Auto) (5.5-15.2) % Eos % (Auto) (0.1-6.8) % Baso % (Auto) (0.3-3.8) % Neut # (Auto) (1.7-6.9) x10-3/uL Lymph # (Auto) (0.5-4.5) x10-3/uL [place] # (Auto) (0.0-1.2) x10-3/uL Eos # (Auto) (0.0-0.6) x10-3/uL Baso # (Auto) (0.0-0.3) x10-3/uL Add Manual Diff Yes Neutrophils % (Manual) 68 (46-82) % Band Neutrophils % 2 (0-6) % Lymphocytes % (Manual) 22 (13-37) % Monocytes % (Manual) 8 (4-12) % Giant Platelets Few Anisocytosis Few APTT (24.4-33.2) SECONDS POC ABG pH (7.35-7.45) pH POC ABG pCO2 (35-48) mmHg POC ABG pO2 (83-108) mmHg POC ABG HCO3 (21-28) mmol/L ABG O2 Sat (Calculated) (94-98) % POC ABG Base Excess (-2-3) mmol/L Adiel Test (PASS) O2 Delivery Device Sodium (135-145) mmol/L Potassium (3.5-5.3) mmol/L Chloride (100-110) mmol/L Carbon Dioxide (21-32) mmol/L BUN (7-18) mg/dL Creatinine (0.70-1.30) mg/dL Est Cr Clr Drug Dosing mL/min Estimated GFR (MDRD) (>60) BUN/Creatinine Ratio (9-20) Glucose (80-116) mg/dL POC Glucose 195 H 277 H (74-100) mg/dL Calcium (8.6-10.2) mg/dL Total Bilirubin (0.1-1.3) mg/dL AST (5-25) IU/L ALT (12-36) U/L Alkaline Phosphatase (56-112) IU/L C-Reactive Protein (0.5-0.9) mg/dL Total Protein (6.0-8.0) g/dL Albumin (3.2-4.6) g/dL Globulin g/dL Albumin/Globulin Ratio 06/22/20 06/22/20 Range/Units 07:19 11:35 WBC (3.2-10.1) x10-3/uL RBC (3.90-5.90) x10(6)uL Hgb (12.9-17.7) g/dL Hct (38.3-50.1) % MCV (80.8-98.7) fL MCH (27.0-33.3) pg MCHC (28.7-35.3) g/dL RDW (12.4-15.0) % Plt Count (117-477) x10(3)uL MPV (6.7-11.0) fL Neut % (Auto) (40.3-71.8) % Lymph % (Auto) (15.8-45.3) % [place] % (Auto) (5.5-15.2) % Eos % (Auto) (0.1-6.8) % Baso % (Auto) (0.3-3.8) % Neut # (Auto) (1.7-6.9) x10-3/uL Lymph # (Auto) (0.5-4.5) x10-3/uL [place] # (Auto) (0.0-1.2) x10-3/uL Eos # (Auto) (0.0-0.6) x10-3/uL Baso # (Auto) (0.0-0.3) x10-3/uL Add Manual Diff Neutrophils % (Manual) (46-82) % Band Neutrophils % (0-6) % Lymphocytes % (Manual) (13-37) % Monocytes % (Manual) (4-12) % Giant Platelets Anisocytosis APTT (24.4-33.2) SECONDS POC ABG pH (7.35-7.45) pH POC ABG pCO2 (35-48) mmHg POC ABG pO2 (83-108) mmHg POC ABG HCO3 (21-28) mmol/L ABG O2 Sat (Calculated) (94-98) % POC ABG Base Excess (-2-3) mmol/L Adiel Test (PASS) O2 Delivery Device Sodium 136 (135-145) mmol/L Potassium 3.8 (3.5-5.3) mmol/L Chloride 103 D (100-110) mmol/L Carbon Dioxide 24 (21-32) mmol/L BUN 17 (7-18) mg/dL Creatinine 1.0 (0.70-1.30) mg/dL Est Cr Clr Drug Dosing 71.02 mL/min Estimated GFR (MDRD) > 60 (>60) BUN/Creatinine Ratio 17.0 (9-20) Glucose 311 H D (80-116) mg/dL POC Glucose 269 H (74-100) mg/dL Calcium 7.9 L (8.6-10.2) mg/dL Total Bilirubin 0.6 (0.1-1.3) mg/dL AST 51 H (5-25) IU/L ALT 31 (12-36) U/L Alkaline Phosphatase 82 (56-112) IU/L C-Reactive Protein (0.5-0.9) mg/dL Total Protein 6.6 (6.0-8.0) g/dL Albumin 2.5 L (3.2-4.6) g/dL Globulin 4.1 g/dL Albumin/Globulin Ratio 0.6 Med Orders - Current: Current Medications Acetaminophen (Tylenol) 650 mg PO Q4H PRN PRN Reason: Pain (Mild 1-3)/fever Last Admin: 06/21/20 20:52 Dose: 650 mg Documented by: Albuterol (Ventolin Hfa) 0 gm INH Q4H PRN PRN Reason: Wheezing Atorvastatin Calcium (Lipitor) 40 mg PO BEDTIME [facility] Last Admin: 06/21/20 20:23 Dose: 40 mg Documented by: Clopidogrel Bisulfate (Plavix) 75 mg PO DAILY [facility] Last Admin: 06/22/20 09:03 Dose: 75 mg Documented by: Dexamethasone (Dexamethasone) 6 mg IVPUSH DAILY [facility] Stop: 07/01/20 17:16 Last Admin: 06/22/20 09:02 Dose: 6 mg Documented by: Dextrose/Water (Dextrose 50% In Water) 50 ml IVPUSH ASDIRECTED PRN PRN Reason: Hypoglycemia Donepezil HCl (Aricept) 5 mg PO BEDTIME [facility] Last Admin: 06/21/20 20:22 Dose: 5 mg Documented by: Glucagon (Glucagen) 1 mg IM ASDIRECTED PRN PRN Reason: Hypoglycemia Sodium Chloride (Normal Saline) 1,000 mls @ 100 mls/hr IV ASDIRECTED [facility] Last Admin: 06/22/20 04:10 Dose: 100 mls/hr Documented by: Remdesivir 100 mg/ Sodium (Chloride) 100 mls @ 100 mls/hr IV Q24H [facility] Stop: 06/25/20 18:59 Insulin Glargine (Lantus Solostar) 20 units SUBCUT BID [facility] Last Admin: 06/22/20 09:04 Dose: 20 units Documented by: Insulin Human Lispro (Humalog) 0 unit SUBCUT TIDMEALS [facility]; Protocol Last Admin: 06/22/20 12:12 Dose: 6 units Documented by: Metoprolol Succinate (Toprol Xl) 25 mg PO DAILY [facility] Last Admin: 06/22/20 09:03 Dose: 25 mg Documented by: Nitroglycerin (Nitrostat) 0.4 mg SL ASDIRECTED PRN PRN Reason: Chest Pain Ondansetron HCl (Zofran Odt) 4 mg PO Q6H PRN PRN Reason: nausea, able to take PO Pantoprazole Sodium (Protonix) 40 mg PO BEDTIME [facility] Last Admin: 06/21/20 20:23 Dose: 40 mg Documented by: Potassium Chloride (Klor-Con M20) 20 meq PO BID [facility] Last Admin: 06/22/20 09:03 Dose: 20 meq Documented by: Discontinued Medications Glipizide (Glucotrol Xl) 10 mg PO BID [facility] Last Admin: 06/21/20 20:15 Dose: Not Given Documented by: Remdesivir 200 mg/ Sodium (Chloride) 250 mls @ 200 mls/hr IV ONETIME ONE Stop: 06/21/20 21:01 Last Admin: 06/21/20 20:23 Dose: 200 mls/hr Documented by: Insulin Glargine (Lantus Solostar) 20 units SUBCUT BID [facility] Last Admin: 06/21/20 20:26 Dose: 20 unit Documented by: Sitagliptin Phosphate (Januvia) 100 mg PO DAILY [facility] Last Admin: 06/22/20 09:03 Dose: 100 mg Documented by: Sodium Chloride (Saline Flush) 10 ml FLUSH ASDIRECTED PRN PRN Reason: Keep Vein Open - Exam Quality Assessment: Supplemental Oxygen (5L) General: Alert, Oriented (person, place), Cooperative, No Acute Distress Lungs: Clear to Auscultation, Normal Respiratory Effort, Decreased Breath Sounds (BLL), Crackles (fine crackles bibasilar). No: Wheezing Cardiovascular: Regular Rate, Regular Rhythm GI/Abdominal Exam: Soft, Non-Tender, No Distention, Abnormal Bowel Sounds (hyperactive, belching) Extremities: No Pedal Edema Peripheral Pulses: 2+: Radial (L), Radial (R) Skin: Warm, Dry, Intact Sepsis Event Note - Evaluation Sepsis Screening Result: Sepsis Risk - Focused Exam Vital Signs: Vital Signs Temp Temp Pulse Pulse Resp BP BP 06/22/20 09:03 93 131/74 06/22/20 08:00 97.3 F 93 20 131/74 06/22/20 04:50 98.1 F 65 20 152/82 H Pulse Ox 06/22/20 09:03 06/22/20 08:00 93 L 06/22/20 04:50 92 L - Problem List & Annotations (1) COVID-19 SNOMED Code(s): 828749048 Code(s): U07.1 - COVID-19 Status: Acute Current Visit: Yes (2) Viral pneumonia SNOMED Code(s): 07327760 Code(s): J12.9 - VIRAL PNEUMONIA, UNSPECIFIED Status: Acute Current Visit: Yes (3) Hypoxic SNOMED Code(s): 106959960 Code(s): R09.02 - HYPOXEMIA Status: Acute Current Visit: Yes (4) Diabetes SNOMED Code(s): 48967978 Code(s): E11.9 - TYPE 2 DIABETES MELLITUS WITHOUT COMPLICATIONS Status: Chronic Current Visit: Yes Qualifiers: Diabetes mellitus entry level account executive insulin use: with snf use (5) GERD (gastroesophageal reflux disease) SNOMED Code(s): 482342716 Code(s): K21.9 - GASTRO-ESOPHAGEAL REFLUX DISEASE WITHOUT ESOPHAGITIS Status: Chronic Priority: Medium Current Visit: No Qualifiers: Esophagitis presence: with esophagitis (6) Neurocognitive deficits SNOMED Code(s): 478573551 Code(s): R29.818 - OTHER SYMPTOMS AND SIGNS INVOLVING THE NERVOUS SYSTEM; R41.89 - OTH SYMPTOMS AND SIGNS W COGNITIVE FUNCTIONS AND AWARENESS Status: Chronic Current Visit: Yes (7) Palliative care patient SNOMED Code(s): 818225656, 358454899 Code(s): Z51.5 - ENCOUNTER FOR PALLIATIVE CARE Status: Chronic Current Visit: Yes (8) CHF (congestive heart failure) SNOMED Code(s): 77154094 Code(s): I50.9 - HEART FAILURE, UNSPECIFIED Status: Chronic Current Visit: Yes Qualifiers: Heart failure type: unspecified Annotation/Comment:: Echo in 09/2017, EF of 65% - Problem List Review Problem List Initiated/Reviewed/Updated: Yes - My Orders Last 24 Hours: My Active Orders 06/21/20 Dinner Consistent Carbohydrate Diet [DIET] 06/21/20 16:55 Patient Status [ADT] Routine Blood Glucose Check, Bedside [RC] QIDACANDBED Oxygen Therapy [RC] PRN Up With Assistance [RC] ASDIRECTED Up to Chair [RC] ASDIRECTED Vital Signs [RC] Q4H Acetaminophen [TylenoL] 650 mg PO Q4H PRN Ondansetron [Zofran ODT] 4 mg PO Q6H PRN Saline Lock Insert [OM.PC] Routine Resuscitation Status Routine 06/21/20 16:56 Antiembolic Hose [OM.PC] Per Unit Routine 06/21/20 17:00 Sodium Chloride 0.9% [Normal Saline] 1,000 ml IV ASDIRECTED 06/21/20 17:02 Dextrose 50% in Water 50 ml IVPUSH ASDIRECTED PRN Glucagon,Human Recombinant [GlucaGen] 1 mg IM ASDIRECTED PRN Isolation [COMM] Stat 06/21/20 17:03 Albuterol [Ventolin HFA] 0 gm INH Q4H PRN Nitroglycerin [Nitrostat] 0.4 mg SL ASDIRECTED PRN 06/21/20 17:04 RT Post Treatment Assessment [RC] Click to Edit 06/21/20 17:08 Incentive Spirometry [RT Incentive Spirometry] [RC] Q1HWA 06/21/20 17:15 dexAMETHasone 6 mg IVPUSH DAILY 06/21/20 18:00 Insulin Lispro [HumaLOG] See Protocol SUBCUT TIDMEALS 06/21/20 18:20 PROCALCITONIN Routine 06/21/20 21:00 Donepezil [Aricept] 5 mg PO BEDTIME Pantoprazole [ProTONIX] 40 mg PO BEDTIME Potassium Chloride [Klor-Con M20] 20 meq PO BID atorvaSTATin [Lipitor] 40 mg PO BEDTIME 06/22/20 07:58 Insulin Glarg,Human.Rec.Analog [LantUS Solostar] 20 units SUBCUT BID 06/22/20 09:00 Clopidogrel [Plavix] 75 mg PO DAILY Metoprolol Succinate [Toprol XL] 25 mg PO DAILY 06/22/20 18:00 Remdesivir 100 mg Sodium Chloride 0.9% [Normal Saline] 100 ml IV Q24H 06/23/20 06:00 CBC WITH AUTO DIFF [HEME] DAILY HEPATIC FUNCTION PANEL,HFP [CHEM] DAILY 06/24/20 06:00 CBC WITH AUTO DIFF [HEME] DAILY HEPATIC FUNCTION PANEL,HFP [CHEM] DAILY 06/25/20 06:00 CBC WITH AUTO DIFF [HEME] DAILY HEPATIC FUNCTION PANEL,HFP [CHEM] DAILY 06/26/20 06:00 CBC WITH AUTO DIFF [HEME] DAILY HEPATIC FUNCTION PANEL,HFP [CHEM] DAILY 06/27/20 06:00 CBC WITH AUTO DIFF [HEME] DAILY HEPATIC FUNCTION PANEL,HFP [CHEM] DAILY - Plan Plan:: 1. COVID viral pneumonia: CBC 4.3 last night, 2.9 today. Cr 1.0, AST at 51, will continue to monitor, procalcitonin pending. Dexamethasone 6 mg IV daily, Remdesivir 200 mg given last night, will get 100 mg daily, 5 day course. Oxygen to keep sats >94% by nasal cannula. Repeat labs tomorrow. NS at 100 ml/hr, if having good oral intake will decrease or saline lock. 2. Recurrent UTIs: noted by nursing that his urine is malodorous, UA ordered, will treat if needed. 3. DM: Accuchecks qidac&hs, Consistent carb diet, Lantus substitute for Levemir 20 units bid, Humalog sliding scale. Hold oral diabetic meds at this time. 4. DVT: TEDs BLE, Plavix 75 mg daily, platelets are low, will continue to monitor, no Lovenox at this time.
[2020-06-22] MEDS: REMDESIVIR 100 MG in Sodium Chloride 0.9% 100 ML IV SCH (18:18)
[2020-06-22] MEDS: Sodium Chloride 0.9% 10 ML Syringe FLUSH PRN ×3 (19:16→19:18)
[2020-06-22] MEDS: atorvaSTATin 40 MG Tab PO SCH (20:36)
[2020-06-22] MEDS: Pantoprazole 40 MG Tab.CR PO SCH (20:37)
[2020-06-22] MEDS: Donepezil 5 MG Tab PO SCH (20:37)
[2020-06-23] MEDS: Sodium Chloride 0.9% 1,000 ML IV SCH (01:18)
[2020-06-23] MEDS: Acetaminophen 325 MG Tab PO PRN (02:27)
[2020-06-23] MEDS: Insulin Lispro 100 Unit/ML 3 ML KwikPen SUBCUT SCH ×3 (08:13→17:54)
[2020-06-23] MEDS: Dexamethasone 4 MG/ML 5 ML MDV IVPUSH SCH (08:16)
[2020-06-23] MEDS: Insulin Glargine,Human Rec. Analog 100 Units/ML 3 ML Pen SUBCUT SCH ×2 (08:17→20:37)
[2020-06-23] MEDS: Sodium Chloride 0.9% 10 ML Syringe FLUSH PRN ×6 (08:18→19:06)
[2020-06-23] MEDS: Potassium Chloride 20 MEQ Tab.ER PO SCH ×2 (09:36→20:25)
[2020-06-23] MEDS: Metoprolol Succinate 25 MG Tab.ER PO SCH (09:36)
[2020-06-23] MEDS: Clopidogrel 75 MG Tab PO SCH (09:36)
--- NOTE | 2020-06-23 11:18 | PCM.PN ---
- General Info Date of Service: 06/23/20 Subjective Update: Alexandru is up in the chair and feeling better. Had high blood sugar last night but has trended down to 227 this morning. Drank a liter of water overnight, nurse just refilled his container. No nausea or vomiting. Breathing feels it is better. Does miss his . - Patient Data Vitals - Most Recent: Last Vital Signs Temp 97.6 F 06/23/20 09:00 Pulse 70 06/23/20 09:36 Resp 16 06/23/20 09:00 BP 115/74 06/23/20 09:36 Pulse Ox 96 06/23/20 09:00 Weight - Most Recent: 241 lb 14.4 oz I&O - Last 24 Hours: Intake & Output 06/22/20 06/23/20 06/23/20 22:59 06:59 14:59 Intake Total 1783 847 Output Total 500 500 Balance 1283 347 Lab Results Last 24 Hours: Laboratory Results - last 24 hr 06/22/20 06/22/20 06/22/20 Range/Units 11:35 17:27 20:33 WBC (3.2-10.1) x10-3/uL RBC (3.90-5.90) x10(6)uL Hgb (12.9-17.7) g/dL Hct (38.3-50.1) % MCV (80.8-98.7) fL MCH (27.0-33.3) pg MCHC (28.7-35.3) g/dL RDW (12.4-15.0) % Plt Count (117-477) x10(3)uL MPV (6.7-11.0) fL Neut % (Auto) (40.3-71.8) % Lymph % (Auto) (15.8-45.3) % [place] % (Auto) (5.5-15.2) % Eos % (Auto) (0.1-6.8) % Baso % (Auto) (0.3-3.8) % Neut # (Auto) (1.7-6.9) x10-3/uL Lymph # (Auto) (0.5-4.5) x10-3/uL [place] # (Auto) (0.0-1.2) x10-3/uL Eos # (Auto) (0.0-0.6) x10-3/uL Baso # (Auto) (0.0-0.3) x10-3/uL POC Glucose 269 H 347 H 425 H* (74-100) mg/dL Total Bilirubin (0.1-1.3) mg/dL Direct Bilirubin (0.10-0.20) mg/dL AST (5-25) IU/L ALT (12-36) U/L Alkaline Phosphatase (56-112) IU/L Total Protein (6.0-8.0) g/dL Albumin (3.2-4.6) g/dL Urine Color (YELLOW) Urine Appearance (CLEAR) Urine pH (5.0-6.5) Ur Specific [place] (1.010-1.025) Urine Protein (NEGATIVE) mg/dL Urine Glucose (UA) (NORMAL) mg/dL Urine Ketones (NEGATIVE) mg/dL Urine Occult Blood (NEGATIVE) Urine Nitrite (NEGATIVE) Urine Bilirubin (NEGATIVE) Urine Urobilinogen (NEGATIVE) mg/dL Ur Leukocyte Esterase (NEGATIVE) Urine RBC (0-5) Urine WBC (0-5) Ur Squamous Epith Cells (NS,R,O) Amorphous Sediment Urine Bacteria (NS) 06/22/20 06/22/20 06/23/20 Range/Units 21:55 22:00 01:41 WBC (3.2-10.1) x10-3/uL RBC (3.90-5.90) x10(6)uL Hgb (12.9-17.7) g/dL Hct (38.3-50.1) % MCV (80.8-98.7) fL MCH (27.0-33.3) pg MCHC (28.7-35.3) g/dL RDW (12.4-15.0) % Plt Count (117-477) x10(3)uL MPV (6.7-11.0) fL Neut % (Auto) (40.3-71.8) % Lymph % (Auto) (15.8-45.3) % [place] % (Auto) (5.5-15.2) % Eos % (Auto) (0.1-6.8) % Baso % (Auto) (0.3-3.8) % Neut # (Auto) (1.7-6.9) x10-3/uL Lymph # (Auto) (0.5-4.5) x10-3/uL [place] # (Auto) (0.0-1.2) x10-3/uL Eos # (Auto) (0.0-0.6) x10-3/uL Baso # (Auto) (0.0-0.3) x10-3/uL POC Glucose 299 H 227 H (74-100) mg/dL Total Bilirubin (0.1-1.3) mg/dL Direct Bilirubin (0.10-0.20) mg/dL AST (5-25) IU/L ALT (12-36) U/L Alkaline Phosphatase (56-112) IU/L Total Protein (6.0-8.0) g/dL Albumin (3.2-4.6) g/dL Urine Color Yellow (YELLOW) Urine Appearance Cloudy (CLEAR) Urine pH 5.0 (5.0-6.5) Ur Specific [place] 1.015 (1.010-1.025) Urine Protein Negative (NEGATIVE) mg/dL Urine Glucose (UA) >1000 H (NORMAL) mg/dL Urine Ketones 15 H (NEGATIVE) mg/dL Urine Occult Blood Negative (NEGATIVE) Urine Nitrite Negative (NEGATIVE) Urine Bilirubin Negative (NEGATIVE) Urine Urobilinogen Normal (NEGATIVE) mg/dL Ur Leukocyte Esterase Negative (NEGATIVE) Urine RBC 0-5 (0-5) Urine WBC 0-5 (0-5) Ur Squamous Epith Cells Occasional (NS,R,O) Amorphous Sediment Moderate Urine Bacteria Moderate H (NS) 06/23/20 06/23/20 Range/Units 06:30 06:30 WBC 7.1 (3.2-10.1) x10-3/uL RBC 4.36 (3.90-5.90) x10(6)uL Hgb 12.5 L (12.9-17.7) g/dL Hct 36.5 L (38.3-50.1) % MCV 83.7 (80.8-98.7) fL MCH 28.6 (27.0-33.3) pg MCHC 34.2 (28.7-35.3) g/dL RDW 15.6 H (12.4-15.0) % Plt Count 135 (117-477) x10(3)uL MPV 9.1 (6.7-11.0) fL Neut % (Auto) 85.5 H (40.3-71.8) % Lymph % (Auto) 8.9 L (15.8-45.3) % [place] % (Auto) 5.5 (5.5-15.2) % Eos % (Auto) 0.0 L (0.1-6.8) % Baso % (Auto) 0.1 L (0.3-3.8) % Neut # (Auto) 6.1 (1.7-6.9) x10-3/uL Lymph # (Auto) 0.6 (0.5-4.5) x10-3/uL [place] # (Auto) 0.4 (0.0-1.2) x10-3/uL Eos # (Auto) 0.0 (0.0-0.6) x10-3/uL Baso # (Auto) 0.0 (0.0-0.3) x10-3/uL POC Glucose (74-100) mg/dL Total Bilirubin 0.3 (0.1-1.3) mg/dL Direct Bilirubin 0.13 (0.10-0.20) mg/dL AST 41 H D (5-25) IU/L ALT 30 (12-36) U/L Alkaline Phosphatase 67 (56-112) IU/L Total Protein 5.8 L (6.0-8.0) g/dL Albumin 2.3 L (3.2-4.6) g/dL Urine Color (YELLOW) Urine Appearance (CLEAR) Urine pH (5.0-6.5) Ur Specific [place] (1.010-1.025) Urine Protein (NEGATIVE) mg/dL Urine Glucose (UA) (NORMAL) mg/dL Urine Ketones (NEGATIVE) mg/dL Urine Occult Blood (NEGATIVE) Urine Nitrite (NEGATIVE) Urine Bilirubin (NEGATIVE) Urine Urobilinogen (NEGATIVE) mg/dL Ur Leukocyte Esterase (NEGATIVE) Urine RBC (0-5) Urine WBC (0-5) Ur Squamous Epith Cells (NS,R,O) Amorphous Sediment Urine Bacteria (NS) Med Orders - Current: Current Medications Acetaminophen (Tylenol) 650 mg PO Q4H PRN PRN Reason: Pain (Mild 1-3)/fever Last Admin: 06/23/20 02:27 Dose: 650 mg Documented by: Albuterol (Ventolin Hfa) 0 gm INH Q4H PRN PRN Reason: Wheezing Atorvastatin Calcium (Lipitor) 40 mg PO BEDTIME [facility] Last Admin: 06/22/20 20:36 Dose: 40 mg Documented by: Clopidogrel Bisulfate (Plavix) 75 mg PO DAILY [facility] Last Admin: 06/23/20 09:36 Dose: 75 mg Documented by: Dexamethasone (Dexamethasone) 6 mg IVPUSH DAILY [facility] Stop: 07/01/20 17:16 Last Admin: 06/23/20 08:16 Dose: 6 mg Documented by: Dextrose/Water (Dextrose 50% In Water) 50 ml IVPUSH ASDIRECTED PRN PRN Reason: Hypoglycemia Donepezil HCl (Aricept) 5 mg PO BEDTIME [facility] Last Admin: 06/22/20 20:37 Dose: 5 mg Documented by: Glucagon (Glucagen) 1 mg IM ASDIRECTED PRN PRN Reason: Hypoglycemia Sodium Chloride (Normal Saline) 1,000 mls @ 100 mls/hr IV ASDIRECTED [facility] Last Admin: 06/23/20 01:18 Dose: 100 mls/hr Documented by: Remdesivir 100 mg/ Sodium (Chloride) 100 mls @ 100 mls/hr IV Q24H [facility] Stop: 06/25/20 18:59 Last Admin: 06/22/20 18:18 Dose: 100 mls/hr Documented by: Insulin Glargine (Lantus Solostar) 20 units SUBCUT BID [facility] Last Admin: 06/23/20 08:17 Dose: 20 units Documented by: Insulin Human Lispro (Humalog) 0 unit SUBCUT TIDMEALS [facility]; Protocol Last Admin: 06/23/20 08:13 Dose: 3 units Documented by: Metoprolol Succinate (Toprol Xl) 25 mg PO DAILY [facility] Last Admin: 06/23/20 09:36 Dose: 25 mg Documented by: Nitroglycerin (Nitrostat) 0.4 mg SL ASDIRECTED PRN PRN Reason: Chest Pain Ondansetron HCl (Zofran Odt) 4 mg PO Q6H PRN PRN Reason: nausea, able to take PO Pantoprazole Sodium (Protonix) 40 mg PO BEDTIME [facility] Last Admin: 06/22/20 20:37 Dose: 40 mg Documented by: Potassium Chloride (Klor-Con M20) 20 meq PO BID [facility] Last Admin: 06/23/20 09:36 Dose: 20 meq Documented by: Sodium Chloride (Saline Flush) 10 ml FLUSH ASDIRECTED PRN PRN Reason: Keep Vein Open Last Admin: 06/22/20 19:18 Dose: 10 ml Documented by: Discontinued Medications Glipizide (Glucotrol Xl) 10 mg PO BID [facility] Last Admin: 06/21/20 20:15 Dose: Not Given Documented by: Remdesivir 200 mg/ Sodium (Chloride) 250 mls @ 200 mls/hr IV ONETIME ONE Stop: 06/21/20 21:01 Last Admin: 06/21/20 20:23 Dose: 200 mls/hr Documented by: Insulin Glargine (Lantus Solostar) 20 units SUBCUT BID [facility] Last Admin: 06/21/20 20:26 Dose: 20 unit Documented by: Sitagliptin Phosphate (Januvia) 100 mg PO DAILY [facility] Last Admin: 06/22/20 09:03 Dose: 100 mg Documented by: Sodium Chloride (Saline Flush) 10 ml FLUSH ASDIRECTED PRN PRN Reason: Keep Vein Open - Exam Quality Assessment: Supplemental Oxygen General: Alert, Oriented (person, place), Cooperative, No Acute Distress Lungs: Clear to Auscultation, Normal Respiratory Effort, Decreased Breath Sounds (bibasilar), Crackles (bibasilar). No: Wheezing Cardiovascular: Regular Rate, Regular Rhythm GI/Abdominal Exam: Soft, Non-Tender, No Distention, Abnormal Bowel Sounds (hyperactive x4) (Male) Exam: Deferred Extremities: No Pedal Edema Peripheral Pulses: 2+: Radial (L), Radial (R) Sepsis Event Note - Evaluation Sepsis Screening Result: No Definite Risk - Focused Exam Vital Signs: Vital Signs Temp Temp Pulse Pulse Resp BP BP 06/23/20 09:36 70 115/74 06/23/20 09:00 97.6 F 70 16 115/74 06/23/20 05:00 96.5 F L 68 22 H 114/55 L 06/23/20 01:56 06/23/20 00:00 96.7 F L 63 22 H 142/78 H Pulse Ox 06/23/20 09:36 06/23/20 09:00 96 06/23/20 05:00 96 06/23/20 01:56 97 06/23/20 00:00 97 - Problem List & Annotations (1) COVID-19 SNOMED Code(s): 873149596 Code(s): U07.1 - COVID-19 Status: Acute Current Visit: Yes (2) Viral pneumonia SNOMED Code(s): 88614115 Code(s): J12.9 - VIRAL PNEUMONIA, UNSPECIFIED Status: Acute Current Visit: Yes (3) Hypoxic SNOMED Code(s): 407149802 Code(s): R09.02 - HYPOXEMIA Status: Acute Current Visit: Yes (4) Diabetes SNOMED Code(s): 62071768 Code(s): E11.9 - TYPE 2 DIABETES MELLITUS WITHOUT COMPLICATIONS Status: Chronic Current Visit: Yes Qualifiers: Diabetes mellitus manager intermediate insulin use: with retirement use (5) GERD (gastroesophageal reflux disease) SNOMED Code(s): 807764204 Code(s): K21.9 - GASTRO-ESOPHAGEAL REFLUX DISEASE WITHOUT ESOPHAGITIS Status: Chronic Priority: Medium Current Visit: No Qualifiers: Esophagitis presence: with esophagitis (6) Neurocognitive deficits SNOMED Code(s): 855214556 Code(s): R29.818 - OTHER SYMPTOMS AND SIGNS INVOLVING THE NERVOUS SYSTEM; R41.89 - OTH SYMPTOMS AND SIGNS W COGNITIVE FUNCTIONS AND AWARENESS Status: Chronic Current Visit: Yes (7) Palliative care patient SNOMED Code(s): 149303270, 560210343 Code(s): Z51.5 - ENCOUNTER FOR PALLIATIVE CARE Status: Chronic Current Visit: Yes (8) CHF (congestive heart failure) SNOMED Code(s): 82243707 Code(s): I50.9 - HEART FAILURE, UNSPECIFIED Status: Chronic Current Visit: Yes Qualifiers: Heart failure type: unspecified Annotation/Comment:: Echo in 09/2017, EF of 65% - Problem List Review Problem List Initiated/Reviewed/Updated: Yes - My Orders Last 24 Hours: My Active Orders 06/22/20 18:00 Remdesivir 100 mg Sodium Chloride 0.9% [Normal Saline] 100 ml IV Q24H 06/22/20 19:00 Sodium Chloride 0.9% [Saline Flush] 10 ml FLUSH ASDIRECTED PRN 06/22/20 21:25 CULTURE URINE [RM] Routine 06/24/20 06:00 CBC WITH AUTO DIFF [HEME] DAILY HEPATIC FUNCTION PANEL,HFP [CHEM] DAILY 06/24/20 08:01 CREATININE W/GFR [CHEM] DAILY 06/25/20 06:00 CBC WITH AUTO DIFF [HEME] DAILY HEPATIC FUNCTION PANEL,HFP [CHEM] DAILY 06/25/20 08:01 CREATININE W/GFR [CHEM] DAILY 06/26/20 06:00 CBC WITH AUTO DIFF [HEME] DAILY HEPATIC FUNCTION PANEL,HFP [CHEM] DAILY 06/26/20 08:01 CREATININE W/GFR [CHEM] DAILY 06/27/20 06:00 CBC WITH AUTO DIFF [HEME] DAILY HEPATIC FUNCTION PANEL,HFP [CHEM] DAILY 06/27/20 08:01 CREATININE W/GFR [CHEM] DAILY - Plan Plan:: 1. COVID viral pneumonia: CBC 7.1. Cr 1.0, AST at 41, will continue to monitor, procalcitonin pending. Dexamethasone & Remdesivir day 3/5. Oxygen to keep sats >94% by nasal cannula. Repeat labs tomorrow. 2. Good oral intake, saline lock. 3. DM: Accuchecks qidac&hs, Consistent carb diet, Lantus substitute for Levemir 20 units bid, Humalog high dose sliding scale. Hold oral diabetic meds at this time. 4. DVT: TEDs BLE, Plavix 75 mg daily, platelets are low, will continue to monitor, no Lovenox at this time.
[2020-06-23] MEDS: REMDESIVIR 100 MG in Sodium Chloride 0.9% 100 ML IV SCH (17:21)
[2020-06-23] MEDS: Pantoprazole 40 MG Tab.CR PO SCH (20:25)
[2020-06-23] MEDS: Donepezil 5 MG Tab PO SCH (20:25)
[2020-06-23] MEDS: atorvaSTATin 40 MG Tab PO SCH (20:25)
[2020-06-23] MEDS ORDERED: hydrOXYzine HCl 25 MG Tab PO PRN (21:17)
[2020-06-24] MEDS: Insulin Lispro 100 Unit/ML 3 ML KwikPen SUBCUT SCH ×3 (07:20→18:36)
[2020-06-24] MEDS: Dexamethasone 4 MG/ML 5 ML MDV IVPUSH SCH (08:00)
[2020-06-24] MEDS: Potassium Chloride 20 MEQ Tab.ER PO SCH ×2 (08:01→20:50)
[2020-06-24] MEDS: Clopidogrel 75 MG Tab PO SCH (08:02)
[2020-06-24] MEDS: Metoprolol Succinate 25 MG Tab.ER PO SCH (09:36)
[2020-06-24] MEDS: Insulin Glargine,Human Rec. Analog 100 Units/ML 3 ML Pen SUBCUT SCH ×2 (09:36→21:34)
[2020-06-24] MEDS ORDERED: Calcium Carbonate 500 MG Tab.Chew PO PRN (10:24)
[2020-06-24] MEDS: Sodium Chloride 0.9% 1,000 ML IV SCH ×2 (10:29→22:20)
[2020-06-24] MEDS: Sodium Chloride 0.9% 10 ML Syringe FLUSH PRN ×4 (10:32→18:05)
--- NOTE | 2020-06-24 11:33 | PCM.PN ---
- General Info Date of Service: 06/24/20 Subjective Update: Alexandru slept better last night but not drinking very much, had low blood pressure this morning, held his metoprolol. Blood sugar was 80s this morning, held his morning Lantus dose, didn't eat much this morning. Having a lot of belching, keep bed at 30 degrees. Short of breath a little worse but weaned down to 1L now. - Patient Data Vitals - Most Recent: Last Vital Signs Temp 97.7 F 06/24/20 08:25 Pulse 68 06/24/20 08:25 Resp 16 06/24/20 08:25 BP 111/63 06/24/20 08:25 Pulse Ox 97 06/24/20 08:25 Weight - Most Recent: 241 lb 14.4 oz I&O - Last 24 Hours: Intake & Output 06/23/20 06/24/20 06/24/20 22:59 06:59 14:59 Intake Total 100 Balance 100 Lab Results Last 24 Hours: Laboratory Results - last 24 hr 06/23/20 06/23/20 06/23/20 Range/Units 06:30 11:33 16:44 WBC (3.2-10.1) x10-3/uL RBC (3.90-5.90) x10(6)uL Hgb (12.9-17.7) g/dL Hct (38.3-50.1) % MCV (80.8-98.7) fL MCH (27.0-33.3) pg MCHC (28.7-35.3) g/dL RDW (12.4-15.0) % Plt Count (117-477) x10(3)uL MPV (6.7-11.0) fL Add Manual Diff Neutrophils % (Manual) (46-82) % Band Neutrophils % (0-6) % Lymphocytes % (Manual) (13-37) % Monocytes % (Manual) (4-12) % Microcytosis Creatinine (0.70-1.30) mg/dL Est Cr Clr Drug Dosing mL/min Estimated GFR (MDRD) (>60) POC Glucose 198 H 276 H 311 H (74-100) mg/dL Total Bilirubin (0.1-1.3) mg/dL Direct Bilirubin (0.10-0.20) mg/dL AST (5-25) IU/L ALT (12-36) U/L Alkaline Phosphatase (56-112) IU/L Total Protein (6.0-8.0) g/dL Albumin (3.2-4.6) g/dL 06/23/20 06/24/20 06/24/20 Range/Units 20:18 06:30 06:50 WBC (3.2-10.1) x10-3/uL RBC (3.90-5.90) x10(6)uL Hgb (12.9-17.7) g/dL Hct (38.3-50.1) % MCV (80.8-98.7) fL MCH (27.0-33.3) pg MCHC (28.7-35.3) g/dL RDW (12.4-15.0) % Plt Count (117-477) x10(3)uL MPV (6.7-11.0) fL Add Manual Diff Neutrophils % (Manual) (46-82) % Band Neutrophils % (0-6) % Lymphocytes % (Manual) (13-37) % Monocytes % (Manual) (4-12) % Microcytosis Creatinine 0.9 (0.70-1.30) mg/dL Est Cr Clr Drug Dosing 78.91 mL/min Estimated GFR (MDRD) > 60 (>60) POC Glucose 360 H (74-100) mg/dL Total Bilirubin 0.5 (0.1-1.3) mg/dL Direct Bilirubin 0.16 (0.10-0.20) mg/dL AST 49 H D (5-25) IU/L ALT 38 H D (12-36) U/L Alkaline Phosphatase 78 (56-112) IU/L Total Protein 6.4 (6.0-8.0) g/dL Albumin 2.6 L (3.2-4.6) g/dL 06/24/20 Range/Units 06:50 WBC 8.6 (3.2-10.1) x10-3/uL RBC 4.53 (3.90-5.90) x10(6)uL Hgb 12.9 (12.9-17.7) g/dL Hct 37.8 L (38.3-50.1) % MCV 83.5 (80.8-98.7) fL MCH 28.4 (27.0-33.3) pg MCHC 34.0 (28.7-35.3) g/dL RDW 15.3 H (12.4-15.0) % Plt Count 137 (117-477) x10(3)uL MPV 8.6 (6.7-11.0) fL Add Manual Diff Yes Neutrophils % (Manual) 78 (46-82) % Band Neutrophils % 3 (0-6) % Lymphocytes % (Manual) 13 (13-37) % Monocytes % (Manual) 6 (4-12) % Microcytosis Moderate H Creatinine (0.70-1.30) mg/dL Est Cr Clr Drug Dosing mL/min Estimated GFR (MDRD) (>60) POC Glucose (74-100) mg/dL Total Bilirubin (0.1-1.3) mg/dL Direct Bilirubin (0.10-0.20) mg/dL AST (5-25) IU/L ALT (12-36) U/L Alkaline Phosphatase (56-112) IU/L Total Protein (6.0-8.0) g/dL Albumin (3.2-4.6) g/dL Ever Results Last 24 Hours: Microbiology 06/22/20 21:25 Urine Culture - Preliminary Urine, Voided MIXED POSITIVE GUSTAVO DAY 1 Med Orders - Current: Current Medications Acetaminophen (Tylenol) 650 mg PO Q4H PRN PRN Reason: Pain (Mild 1-3)/fever Last Admin: 06/23/20 02:27 Dose: 650 mg Documented by: Albuterol (Ventolin Hfa) 0 gm INH Q4H PRN PRN Reason: Wheezing Atorvastatin Calcium (Lipitor) 40 mg PO BEDTIME [facility] Last Admin: 06/23/20 20:25 Dose: 40 mg Documented by: Calcium Carbonate/Glycine (Tums) 500 mg PO Q2H PRN PRN Reason: Indigestion Last Admin: 06/24/20 10:36 Dose: 500 mg Documented by: Clopidogrel Bisulfate (Plavix) 75 mg PO DAILY [facility] Last Admin: 06/24/20 08:02 Dose: 75 mg Documented by: Dexamethasone (Dexamethasone) 6 mg IVPUSH DAILY [facility] Stop: 07/01/20 17:16 Last Admin: 06/24/20 08:00 Dose: 6 mg Documented by: Dextrose/Water (Dextrose 50% In Water) 50 ml IVPUSH ASDIRECTED PRN PRN Reason: Hypoglycemia Donepezil HCl (Aricept) 5 mg PO BEDTIME [facility] Last Admin: 06/23/20 20:25 Dose: 5 mg Documented by: Glucagon (Glucagen) 1 mg IM ASDIRECTED PRN PRN Reason: Hypoglycemia Hydroxyzine HCl (Atarax) 25 mg PO BEDTIME PRN PRN Reason: Insomnia Last Admin: 06/23/20 21:37 Dose: 25 mg Documented by: Sodium Chloride (Normal Saline) 1,000 mls @ 75 mls/hr IV ASDIRECTED [facility] Last Admin: 06/24/20 10:29 Dose: 100 mls/hr Documented by: Remdesivir 100 mg/ Sodium (Chloride) 100 mls @ 100 mls/hr IV Q24H [facility] Stop: 06/25/20 18:59 Last Admin: 06/23/20 17:21 Dose: 100 mls/hr Documented by: Insulin Glargine (Lantus Solostar) 20 units SUBCUT BID [facility] Last Admin: 06/24/20 09:36 Dose: Not Given Documented by: Insulin Human Lispro (Humalog) 0 unit SUBCUT TIDMEALS [facility]; Protocol Last Admin: 06/24/20 07:20 Dose: Not Given Documented by: Metoprolol Succinate (Toprol Xl) 25 mg PO DAILY [facility] Last Admin: 06/24/20 09:36 Dose: Not Given Documented by: Nitroglycerin (Nitrostat) 0.4 mg SL ASDIRECTED PRN PRN Reason: Chest Pain Ondansetron HCl (Zofran Odt) 4 mg PO Q6H PRN PRN Reason: nausea, able to take PO Pantoprazole Sodium (Protonix) 40 mg PO BEDTIME [facility] Last Admin: 06/23/20 20:25 Dose: 40 mg Documented by: Potassium Chloride (Klor-Con M20) 20 meq PO BID [facility] Last Admin: 06/24/20 08:01 Dose: 20 meq Documented by: Sodium Chloride (Saline Flush) 10 ml FLUSH ASDIRECTED PRN PRN Reason: Keep Vein Open Last Admin: 06/24/20 10:32 Dose: 10 ml Documented by: Discontinued Medications Glipizide (Glucotrol Xl) 10 mg PO BID [facility] Last Admin: 06/21/20 20:15 Dose: Not Given Documented by: Remdesivir 200 mg/ Sodium (Chloride) 250 mls @ 200 mls/hr IV ONETIME ONE Stop: 06/21/20 21:01 Last Admin: 06/21/20 20:23 Dose: 200 mls/hr Documented by: Insulin Glargine (Lantus Solostar) 20 units SUBCUT BID [facility] Last Admin: 06/21/20 20:26 Dose: 20 unit Documented by: Sitagliptin Phosphate (Januvia) 100 mg PO DAILY [facility] Last Admin: 06/22/20 09:03 Dose: 100 mg Documented by: Sodium Chloride (Saline Flush) 10 ml FLUSH ASDIRECTED PRN PRN Reason: Keep Vein Open - Exam Quality Assessment: Supplemental Oxygen General: Alert, Oriented (person), Cooperative, No Acute Distress Neck: Trachea Midline Lungs: Clear to Auscultation (Right lobes), Normal Respiratory Effort, Decreased Breath Sounds (bibasilar), Crackles (LLL to midlung). No: Wheezing Cardiovascular: Regular Rate, Regular Rhythm GI/Abdominal Exam: Normal Bowel Sounds, Soft, Non-Tender, No Distention, Other (belching for a few minutes continuous during exam) Extremities: No Pedal Edema Peripheral Pulses: 2+: Radial (L), Radial (R) Sepsis Event Note - Evaluation Sepsis Screening Result: No Definite Risk - Focused Exam Vital Signs: Vital Signs Temp Pulse Resp BP Pulse Ox Pulse Ox 06/24/20 08:25 97.7 F 68 16 111/63 97 06/24/20 07:35 97.6 F 64 16 88/42 L 97 06/24/20 05:00 96.9 F 64 18 112/61 96 06/24/20 01:30 96.4 F L 68 18 104/57 L 97 06/24/20 00:00 97 - Problem List & Annotations (1) COVID-19 SNOMED Code(s): 584055706 Code(s): U07.1 - COVID-19 Status: Acute Current Visit: Yes (2) Viral pneumonia SNOMED Code(s): 22639505 Code(s): J12.9 - VIRAL PNEUMONIA, UNSPECIFIED Status: Acute Current Visit: Yes (3) Hypoxic SNOMED Code(s): 164780930 Code(s): R09.02 - HYPOXEMIA Status: Acute Current Visit: Yes (4) Diabetes SNOMED Code(s): 45880817 Code(s): E11.9 - TYPE 2 DIABETES MELLITUS WITHOUT COMPLICATIONS Status: Chronic Current Visit: Yes Qualifiers: Diabetes mellitus carpenter supervisor insulin use: with half-way use (5) GERD (gastroesophageal reflux disease) SNOMED Code(s): 086573004 Code(s): K21.9 - GASTRO-ESOPHAGEAL REFLUX DISEASE WITHOUT ESOPHAGITIS Status: Chronic Priority: Medium Current Visit: No Qualifiers: Esophagitis presence: with esophagitis (6) Neurocognitive deficits SNOMED Code(s): 252529085 Code(s): R29.818 - OTHER SYMPTOMS AND SIGNS INVOLVING THE NERVOUS SYSTEM; R41.89 - OTH SYMPTOMS AND SIGNS W COGNITIVE FUNCTIONS AND AWARENESS Status: Chronic Current Visit: Yes (7) Palliative care patient SNOMED Code(s): 427740715, 188507213 Code(s): Z51.5 - ENCOUNTER FOR PALLIATIVE CARE Status: Chronic Current Visit: Yes (8) CHF (congestive heart failure) SNOMED Code(s): 40419483 Code(s): I50.9 - HEART FAILURE, UNSPECIFIED Status: Chronic Current Visit: Yes Qualifiers: Heart failure type: unspecified Annotation/Comment:: Echo in 09/2017, EF of 65% - Problem List Review Problem List Initiated/Reviewed/Updated: Yes - My Orders Last 24 Hours: My Active Orders 06/23/20 11:26 Convert IV to Peripheral Lock [Convert IV to Saline Lock] [OM.PC] Routine 06/23/20 21:17 hydrOXYzine HCL [Atarax] 25 mg PO BEDTIME PRN 06/24/20 10:24 CXR [Chest 1V Frontal] [CR] Routine Calcium Carbonate [Tums] 500 mg PO Q2H PRN 06/25/20 06:00 CBC WITH AUTO DIFF [HEME] DAILY 06/25/20 10:35 COMPREHENSIVE METABOLIC PN,CMP [CHEM] DAILY 06/26/20 06:00 CBC WITH AUTO DIFF [HEME] DAILY 06/26/20 10:35 COMPREHENSIVE METABOLIC PN,CMP [CHEM] DAILY 06/27/20 06:00 CBC WITH AUTO DIFF [HEME] DAILY 06/27/20 10:35 COMPREHENSIVE METABOLIC PN,CMP [CHEM] DAILY - Plan Plan:: 1. COVID viral pneumonia: CBC 8.6. Cr 0.9, AST at 49, will continue to monitor, procalcitonin pending. Dexamethasone & Remdesivir day 4/5. Oxygen to keep sats >94% by nasal cannula. Repeat labs tomorrow. 2. Decreased oral intake, NS at 75ml/hr. 3. DM: Accuchecks qidac&hs, Consistent carb diet, Lantus substitute for Levemir 20 units bid, held morning dose due to decreased appetite, Humalog decrease to medium dose sliding scale. Hold oral diabetic meds at this time. 4. DVT: TEDs BLE, Plavix 75 mg daily, platelets are low, will continue to monitor, no Lovenox at this time. 5. Dyspepsia: Tums 500 mg q2h as needed, keep head of bed at 30 degrees.
[2020-06-24] MEDS: REMDESIVIR 100 MG in Sodium Chloride 0.9% 100 ML IV SCH (17:02)
[2020-06-24] MEDS: Pantoprazole 40 MG Tab.CR PO SCH (20:51)
[2020-06-24] MEDS: Donepezil 5 MG Tab PO SCH (20:51)
[2020-06-24] MEDS: atorvaSTATin 40 MG Tab PO SCH (20:51)
[2020-06-24] MEDS: Budesonide 0.5 MG/2 ML Neb Susp NEB SCH (20:51)
[2020-06-25] MEDS: Budesonide 0.5 MG/2 ML Neb Susp NEB SCH ×2 (06:30→20:26)
[2020-06-25] MEDS: Insulin Lispro 100 Unit/ML 3 ML KwikPen SUBCUT SCH ×3 (07:29→17:54)
[2020-06-25] MEDS: Dexamethasone 4 MG/ML 5 ML MDV IVPUSH SCH (08:58)
[2020-06-25] MEDS: Potassium Chloride 20 MEQ Tab.ER PO SCH ×2 (08:59→20:26)
[2020-06-25] MEDS: Clopidogrel 75 MG Tab PO SCH (08:59)
[2020-06-25] MEDS: Insulin Glargine,Human Rec. Analog 100 Units/ML 3 ML Pen SUBCUT SCH (09:21)
--- NOTE | 2020-06-25 11:15 | PCM.PN ---
- General Info Date of Service: 06/25/20 Subjective Update: Had a restless night, more delirious. Weaned down to 1L. Not eating or drinking very well. Discontinue Hydroxyzine since he slept so much during the day yesterday. - Patient Data Vitals - Most Recent: Last Vital Signs Temp 98.7 F 06/25/20 05:30 Pulse 81 06/25/20 07:00 Resp 18 06/25/20 07:00 BP 100/45 L 06/25/20 05:30 Pulse Ox 96 06/25/20 07:00 Weight - Most Recent: 241 lb 14.4 oz I&O - Last 24 Hours: Intake & Output 06/24/20 06/25/20 06/25/20 22:59 06:59 14:59 Intake Total 926 616 Balance 926 616 Lab Results Last 24 Hours: Laboratory Results - last 24 hr 06/21/20 06/24/20 06/24/20 Range/Units 18:20 06:45 12:10 WBC (3.2-10.1) x10-3/uL RBC (3.90-5.90) x10(6)uL Hgb (12.9-17.7) g/dL Hct (38.3-50.1) % MCV (80.8-98.7) fL MCH (27.0-33.3) pg MCHC (28.7-35.3) g/dL RDW (12.4-15.0) % Plt Count (117-477) x10(3)uL MPV (6.7-11.0) fL Neut % (Auto) (40.3-71.8) % Lymph % (Auto) (15.8-45.3) % [place] % (Auto) (5.5-15.2) % Eos % (Auto) (0.1-6.8) % Baso % (Auto) (0.3-3.8) % Neut # (Auto) (1.7-6.9) x10-3/uL Lymph # (Auto) (0.5-4.5) x10-3/uL [place] # (Auto) (0.0-1.2) x10-3/uL Eos # (Auto) (0.0-0.6) x10-3/uL Baso # (Auto) (0.0-0.3) x10-3/uL Sodium (135-145) mmol/L Potassium (3.5-5.3) mmol/L Chloride (100-110) mmol/L Carbon Dioxide (21-32) mmol/L BUN (7-18) mg/dL Creatinine (0.70-1.30) mg/dL Est Cr Clr Drug Dosing mL/min Estimated GFR (MDRD) (>60) BUN/Creatinine Ratio (9-20) Glucose (80-116) mg/dL POC Glucose 84 121 H (74-100) mg/dL Calcium (8.6-10.2) mg/dL Total Bilirubin (0.1-1.3) mg/dL AST (5-25) IU/L ALT (12-36) U/L Alkaline Phosphatase (56-112) IU/L Total Protein (6.0-8.0) g/dL Albumin (3.2-4.6) g/dL Globulin g/dL Albumin/Globulin Ratio Procalcitonin 0.16 H (0.00-0.08) ng/mL 06/24/20 06/24/20 06/25/20 Range/Units 17:08 21:09 06:15 WBC 8.5 (3.2-10.1) x10-3/uL RBC 4.63 (3.90-5.90) x10(6)uL Hgb 13.3 (12.9-17.7) g/dL Hct 38.6 (38.3-50.1) % MCV 83.4 (80.8-98.7) fL MCH 28.6 (27.0-33.3) pg MCHC 34.3 (28.7-35.3) g/dL RDW 15.2 H (12.4-15.0) % Plt Count 140 (117-477) x10(3)uL MPV 8.6 (6.7-11.0) fL Neut % (Auto) 84.3 H (40.3-71.8) % Lymph % (Auto) 9.9 L (15.8-45.3) % [place] % (Auto) 5.7 (5.5-15.2) % Eos % (Auto) 0.0 L (0.1-6.8) % Baso % (Auto) 0.1 L (0.3-3.8) % Neut # (Auto) 7.2 H (1.7-6.9) x10-3/uL Lymph # (Auto) 0.8 (0.5-4.5) x10-3/uL [place] # (Auto) 0.5 (0.0-1.2) x10-3/uL Eos # (Auto) 0.0 (0.0-0.6) x10-3/uL Baso # (Auto) 0.0 (0.0-0.3) x10-3/uL Sodium (135-145) mmol/L Potassium (3.5-5.3) mmol/L Chloride (100-110) mmol/L Carbon Dioxide (21-32) mmol/L BUN (7-18) mg/dL Creatinine (0.70-1.30) mg/dL Est Cr Clr Drug Dosing mL/min Estimated GFR (MDRD) (>60) BUN/Creatinine Ratio (9-20) Glucose (80-116) mg/dL POC Glucose 282 H 366 H (74-100) mg/dL Calcium (8.6-10.2) mg/dL Total Bilirubin (0.1-1.3) mg/dL AST (5-25) IU/L ALT (12-36) U/L Alkaline Phosphatase (56-112) IU/L Total Protein (6.0-8.0) g/dL Albumin (3.2-4.6) g/dL Globulin g/dL Albumin/Globulin Ratio Procalcitonin (0.00-0.08) ng/mL 06/25/20 Range/Units 06:15 WBC (3.2-10.1) x10-3/uL RBC (3.90-5.90) x10(6)uL Hgb (12.9-17.7) g/dL Hct (38.3-50.1) % MCV (80.8-98.7) fL MCH (27.0-33.3) pg MCHC (28.7-35.3) g/dL RDW (12.4-15.0) % Plt Count (117-477) x10(3)uL MPV (6.7-11.0) fL Neut % (Auto) (40.3-71.8) % Lymph % (Auto) (15.8-45.3) % [place] % (Auto) (5.5-15.2) % Eos % (Auto) (0.1-6.8) % Baso % (Auto) (0.3-3.8) % Neut # (Auto) (1.7-6.9) x10-3/uL Lymph # (Auto) (0.5-4.5) x10-3/uL [place] # (Auto) (0.0-1.2) x10-3/uL Eos # (Auto) (0.0-0.6) x10-3/uL Baso # (Auto) (0.0-0.3) x10-3/uL Sodium 142 (135-145) mmol/L Potassium 3.6 (3.5-5.3) mmol/L Chloride 105 (100-110) mmol/L Carbon Dioxide 27 (21-32) mmol/L BUN 15 (7-18) mg/dL Creatinine 1.0 (0.70-1.30) mg/dL Est Cr Clr Drug Dosing 71.02 mL/min Estimated GFR (MDRD) > 60 (>60) BUN/Creatinine Ratio 15.0 (9-20) Glucose 121 H D (80-116) mg/dL POC Glucose (74-100) mg/dL Calcium 7.9 L (8.6-10.2) mg/dL Total Bilirubin 0.7 (0.1-1.3) mg/dL AST 65 H D (5-25) IU/L ALT 63 H D (12-36) U/L Alkaline Phosphatase 99 (56-112) IU/L Total Protein 6.4 (6.0-8.0) g/dL Albumin 2.6 L (3.2-4.6) g/dL Globulin 3.8 g/dL Albumin/Globulin Ratio 0.7 Procalcitonin (0.00-0.08) ng/mL Ever Results Last 24 Hours: Microbiology 06/22/20 21:25 Urine Culture - Preliminary Urine, Voided MIXED POSITIVE GUST[facility]O DAY 1 Med Orders - Current: Current Medications Acetaminophen (Tylenol) 650 mg PO Q4H PRN PRN Reason: Pain (Mild 1-3)/fever Last Admin: 06/23/20 02:27 Dose: 650 mg Documented by: Albuterol (Ventolin Hfa) 0 gm INH Q4H PRN PRN Reason: Wheezing Atorvastatin Calcium (Lipitor) 40 mg PO BEDTIME [facility] Last Admin: 06/24/20 20:51 Dose: 40 mg Documented by: Budesonide (Pulmicort) 0.5 mg NEB BIDRT [facility] Last Admin: 06/25/20 06:30 Dose: 0.5 mg Documented by: Calcium Carbonate/Glycine (Tums) 500 mg PO Q2H PRN PRN Reason: Indigestion Last Admin: 06/24/20 10:36 Dose: 500 mg Documented by: Clopidogrel Bisulfate (Plavix) 75 mg PO DAILY [facility] Last Admin: 06/25/20 08:59 Dose: 75 mg Documented by: Dextrose/Water (Dextrose 50% In Water) 50 ml IVPUSH ASDIRECTED PRN PRN Reason: Hypoglycemia Donepezil HCl (Aricept) 5 mg PO BEDTIME [facility] Last Admin: 06/24/20 20:51 Dose: 5 mg Documented by: Glucagon (Glucagen) 1 mg IM ASDIRECTED PRN PRN Reason: Hypoglycemia Sodium Chloride (Normal Saline) 1,000 mls @ 75 mls/hr IV ASDIRECTED [facility] Last Infusion: 06/25/20 09:56 Dose: Infused Documented by: Remdesivir 100 mg/ Sodium (Chloride) 100 mls @ 100 mls/hr IV Q24H [facility] Stop: 06/25/20 18:59 Last Admin: 06/24/20 17:02 Dose: 100 mls/hr Documented by: Insulin Glargine (Lantus Solostar) 20 units SUBCUT BID [facility] Last Admin: 06/25/20 09:21 Dose: Not Given Documented by: Insulin Human Lispro (Humalog) 0 unit SUBCUT TIDMEALS [facility]; Protocol Last Admin: 06/25/20 07:29 Dose: Not Given Documented by: Metoprolol Succinate (Toprol Xl) 25 mg PO DAILY [facility] Last Admin: 06/24/20 09:36 Dose: Not Given Documented by: Nitroglycerin (Nitrostat) 0.4 mg SL ASDIRECTED PRN PRN Reason: Chest Pain Ondansetron HCl (Zofran Odt) 4 mg PO Q6H PRN PRN Reason: nausea, able to take PO Pantoprazole Sodium (Protonix) 40 mg PO BEDTIME [facility] Last Admin: 06/24/20 20:51 Dose: 40 mg Documented by: Potassium Chloride (Klor-Con M20) 20 meq PO BID [facility] Last Admin: 06/25/20 08:59 Dose: 20 meq Documented by: Sodium Chloride (Saline Flush) 10 ml FLUSH ASDIRECTED PRN PRN Reason: Keep Vein Open Last Admin: 06/24/20 18:05 Dose: 10 ml Documented by: Discontinued Medications Dexamethasone (Dexamethasone) 6 mg IVPUSH DAILY [facility] Stop: 07/01/20 17:16 Last Admin: 06/25/20 08:58 Dose: 6 mg Documented by: Glipizide (Glucotrol Xl) 10 mg PO BID [facility] Last Admin: 06/21/20 20:15 Dose: Not Given Documented by: Hydroxyzine HCl (Atarax) 25 mg PO BEDTIME PRN PRN Reason: Insomnia Last Admin: 06/23/20 21:37 Dose: 25 mg Documented by: Remdesivir 200 mg/ Sodium (Chloride) 250 mls @ 200 mls/hr IV ONETIME ONE Stop: 06/21/20 21:01 Last Admin: 06/21/20 20:23 Dose: 200 mls/hr Documented by: Insulin Glargine (Lantus Solostar) 20 units SUBCUT BID [facility] Last Admin: 06/21/20 20:26 Dose: 20 unit Documented by: Sitagliptin Phosphate (Januvia) 100 mg PO DAILY [facility] Last Admin: 06/22/20 09:03 Dose: 100 mg Documented by: Sodium Chloride (Saline Flush) 10 ml FLUSH ASDIRECTED PRN PRN Reason: Keep Vein Open - Exam General: Alert, No Acute Distress, Other (More confused) Lungs: Clear to Auscultation, Normal Respiratory Effort, Decreased Breath Sounds (bibasilar), Crackles (fine crackles in right base). No: Wheezing Cardiovascular: Regular Rate GI/Abdominal Exam: Normal Bowel Sounds, Soft, Non-Tender, No Distention, Other (Belching) Extremities: No Pedal Edema Psy/Mental Status: Agitated Sepsis Event Note - Evaluation Sepsis Screening Result: No Definite Risk - Focused Exam Vital Signs: Vital Signs Temp Pulse Resp BP Pulse Ox Pulse Ox 06/25/20 07:00 81 18 96 06/25/20 06:30 70 95 06/25/20 05:30 98.7 F 70 18 100/45 L 95 06/25/20 01:00 98 F 77 18 110/60 93 L 06/25/20 00:00 92 L - Problem List & Annotations (1) COVID-19 SNOMED Code(s): 059591754 Code(s): U07.1 - COVID-19 Status: Acute Current Visit: Yes (2) Viral pneumonia SNOMED Code(s): 13123271 Code(s): J12.9 - VIRAL PNEUMONIA, UNSPECIFIED Status: Acute Current Visit: Yes (3) Hypoxic SNOMED Code(s): 125716848 Code(s): R09.02 - HYPOXEMIA Status: Acute Current Visit: Yes (4) Diabetes SNOMED Code(s): 82046568 Code(s): E11.9 - TYPE 2 DIABETES MELLITUS WITHOUT COMPLICATIONS Status: Chronic Current Visit: Yes Qualifiers: Diabetes mellitus fdc insulin use: with rodent exterminator use (5) GERD (gastroesophageal reflux disease) SNOMED Code(s): 860910821 Code(s): K21.9 - GASTRO-ESOPHAGEAL REFLUX DISEASE WITHOUT ESOPHAGITIS Status: Chronic Priority: Medium Current Visit: No Qualifiers: Esophagitis presence: with esophagitis (6) Neurocognitive deficits SNOMED Code(s): 894813544 Code(s): R29.818 - OTHER SYMPTOMS AND SIGNS INVOLVING THE NERVOUS SYSTEM; R41.89 - OTH SYMPTOMS AND SIGNS W COGNITIVE FUNCTIONS AND AWARENESS Status: Chronic Current Visit: Yes (7) Palliative care patient SNOMED Code(s): 577130843, 105491174 Code(s): Z51.5 - ENCOUNTER FOR PALLIATIVE CARE Status: Chronic Current Visit: Yes (8) CHF (congestive heart failure) SNOMED Code(s): 62855028 Code(s): I50.9 - HEART FAILURE, UNSPECIFIED Status: Chronic Current Visit : Yes Qualifiers: Heart failure type: unspecified Annotation/Comment:: Echo in 09/2017, EF of 65% (9) Delirium with dementia SNOMED Code(s): 215048262 Code(s): R41.0 - DISORIENTATION, UNSPECIFIED Status: Acute Current Visit: Yes Annotation/Comment:: Possibly secondary to Dexamethasone, will discontinue. - Problem List Review Problem List Initiated/Reviewed/Updated: Yes - My Orders Last 24 Hours: My Active Orders 06/24/20 10:24 Calcium Carbonate [Tums] 500 mg PO Q2H PRN 06/24/20 11:40 Head of Bed Elevation [RC] ASDIRECTED 06/24/20 12:41 CXR [Chest 1V Frontal] [CR] Routine 06/24/20 16:16 RT Aerosol Therapy [RC] .PRN 06/24/20 21:00 Budesonide [Pulmicort] 0.5 mg NEB BIDRT 06/26/20 06:00 OT Evaluation and Treatment [CONS] Routine PT Evaluation and Treatment [CONS] Routine CBC WITH AUTO DIFF [HEME] DAILY COMPREHENSIVE METABOLIC PN,CMP [CHEM] DAILY 06/27/20 06:00 CBC WITH AUTO DIFF [HEME] DAILY COMPREHENSIVE METABOLIC PN,CMP [CHEM] DAILY - Plan Plan:: 1. COVID viral pneumonia: Labs stable. Procalcitonin <2 so low likelihood of sepsis. Dexamethasone discontinued. Remdesivir day 10/11. Oxygen to keep sats >94% by nasal cannula. He is at 1 liter now. Repeat labs tomorrow. 2. Decreased oral intake, NS at 75ml/hr. 3. DM: Accuchecks qidac&hs, Consistent carb diet, Lantus substitute for Levemir 20 units bid, held due to decreased appetite, Humalog decrease to medium dose sliding scale. Continue to hold oral diabetic meds at this time. 4. DVT: TEDs BLE, Plavix 75 mg daily, platelets now normal, will continue to monitor. 5. Dyspepsia: Tums 500 mg q2h as needed, keep head of bed at 30 degrees. 6. Delirium with dementia: Most likely secondary to steroids, discontinued. Symptoms are mild at this point will NOT do Haldol at this time. Will have someone sit with him, have asked the to come in.
[2020-06-25] MEDS: Sodium Chloride 0.9% 1,000 ML IV SCH (13:05)
[2020-06-25] MEDS: REMDESIVIR 100 MG in Sodium Chloride 0.9% 100 ML IV SCH (17:11)
[2020-06-25] MEDS: Sodium Chloride 0.9% 10 ML Syringe FLUSH PRN ×4 (17:11→18:11)
[2020-06-25] MEDS: Pantoprazole 40 MG Tab.CR PO SCH (20:25)
[2020-06-25] MEDS: atorvaSTATin 40 MG Tab PO SCH (20:26)
[2020-06-25] MEDS: Donepezil 5 MG Tab PO SCH (20:26)
[2020-06-26] MEDS: Budesonide 0.5 MG/2 ML Neb Susp NEB SCH ×2 (06:45→20:22)
[2020-06-26] MEDS: Insulin Lispro 100 Unit/ML 3 ML KwikPen SUBCUT SCH ×3 (07:25→17:26)
[2020-06-26] MEDS: Potassium Chloride 20 MEQ Tab.ER PO SCH ×2 (08:21→20:16)
[2020-06-26] MEDS: Clopidogrel 75 MG Tab PO SCH (08:22)
[2020-06-26] MEDS: Metoprolol Succinate 25 MG Tab.ER PO SCH (08:22)
[2020-06-26] MEDS ORDERED: diphenhydrAMINE 50 MG Cap PO ONE (09:00)
--- NOTE | 2020-06-26 09:16 | PCM.PN ---
- General Info Date of Service: 06/26/20 Subjective Update: Alexandru did better overnight, was incontinent of urine this morning, had bowel movement. Did eat 50% breakfast and drank about 600 ml of water. Was tired and went back to bed this morning. He was arousable, stated he was just resting. Denies any chest pain, nausea, vomiting. No diarrhea. Oxygen maintaining at 93- 95% on 2L. I spoke with his daughter Delaney last night, he has been having a marked decline in his memory since about November, had MRI head showed chronic small vessel ischemic disease, incidental finding of metal foreign body in left frontal scalp. Has not had cognitive testing done, but was placed on Aricept. He has been falling more at home, family and his Brianna are both concerned that he would be safe to return home. He and his have been for a couple years, his first from cancer a few years ago. Brianna is petite lady, concerned that she can't get him up if he continues to fall at home. - Patient Data Vitals - Most Recent: Last Vital Signs Temp 97.8 F 06/26/20 08:15 Pulse 62 06/26/20 08:22 Resp 22 H 06/26/20 08:15 BP 134/68 06/26/20 08:22 Pulse Ox 93 L 06/26/20 08:15 Weight - Most Recent: 241 lb 14.4 oz Lab Results Last 24 Hours: Laboratory Results - last 24 hr 06/25/20 06/25/20 06/25/20 Range/Units 12:18 17:15 20:53 WBC (3.2-10.1) x10-3/uL RBC (3.90-5.90) x10(6)uL Hgb (12.9-17.7) g/dL Hct (38.3-50.1) % MCV (80.8-98.7) fL MCH (27.0-33.3) pg MCHC (28.7-35.3) g/dL RDW (12.4-15.0) % Plt Count (117-477) x10(3)uL MPV (6.7-11.0) fL Add Manual Diff Neutrophils % (Manual) (46-82) % Lymphocytes % (Manual) (13-37) % Monocytes % (Manual) (4-12) % Anisocytosis Microcytosis Sodium (135-145) mmol/L Potassium (3.5-5.3) mmol/L Chloride (100-110) mmol/L Carbon Dioxide (21-32) mmol/L BUN (7-18) mg/dL Creatinine (0.70-1.30) mg/dL Est Cr Clr Drug Dosing mL/min Estimated GFR (MDRD) (>60) BUN/Creatinine Ratio (9-20) Glucose (80-116) mg/dL POC Glucose 150 H 205 H 272 H (74-100) mg/dL Calcium (8.6-10.2) mg/dL Total Bilirubin (0.1-1.3) mg/dL AST (5-25) IU/L ALT (12-36) U/L Alkaline Phosphatase (56-112) IU/L Total Protein (6.0-8.0) g/dL Albumin (3.2-4.6) g/dL Globulin g/dL Albumin/Globulin Ratio 06/26/20 06/26/20 06/26/20 Range/Units 06:38 07:51 07:51 WBC 9.7 (3.2-10.1) x10-3/uL RBC 4.72 (3.90-5.90) x10(6)uL Hgb 13.3 (12.9-17.7) g/dL Hct 39.7 (38.3-50.1) % MCV 84.2 (80.8-98.7) fL MCH 28.1 (27.0-33.3) pg MCHC 33.4 (28.7-35.3) g/dL RDW 15.4 H (12.4-15.0) % Plt Count 113 L (117-477) x10(3)uL MPV 8.8 (6.7-11.0) fL Add Manual Diff Yes Neutrophils % (Manual) 87 H (46-82) % Lymphocytes % (Manual) 8 L (13-37) % Monocytes % (Manual) 5 (4-12) % Anisocytosis Few Microcytosis Few Sodium 136 (135-145) mmol/L Potassium 3.8 (3.5-5.3) mmol/L Chloride 101 (100-110) mmol/L Carbon Dioxide 25 (21-32) mmol/L BUN 17 (7-18) mg/dL Creatinine 1.0 (0.70-1.30) mg/dL Est Cr Clr Drug Dosing 71.02 mL/min Estimated GFR (MDRD) > 60 (>60) BUN/Creatinine Ratio 17.0 (9-20) Glucose 267 H D (80-116) mg/dL POC Glucose 271 H (74-100) mg/dL Calcium 7.8 L (8.6-10.2) mg/dL Total Bilirubin 1.1 (0.1-1.3) mg/dL AST 41 H D (5-25) IU/L ALT 54 H D (12-36) U/L Alkaline Phosphatase 116 H (56-112) IU/L Total Protein 6.2 (6.0-8.0) g/dL Albumin 2.5 L (3.2-4.6) g/dL Globulin 3.7 g/dL Albumin/Globulin Ratio 0.7 Ever Results Last 24 Hours: Microbiology 06/22/20 21:25 Urine Culture - Final Urine, Voided MIXED POSITIVE GUSTAVO DAY 2 Med Orders - Current: Current Medications Acetaminophen (Tylenol) 650 mg PO Q4H PRN PRN Reason: Pain (Mild 1-3)/fever Last Admin: 06/23/20 02:27 Dose: 650 mg Documented by: Albuterol (Ventolin Hfa) 0 gm INH Q4H PRN PRN Reason: Wheezing Atorvastatin Calcium (Lipitor) 40 mg PO BEDTIME [facility] Last Admin: 06/25/20 20:26 Dose: 40 mg Documented by: Budesonide (Pulmicort) 0.5 mg NEB BIDRT [facility] Last Admin: 06/26/20 06:45 Dose: 0.5 mg Documented by: Calcium Carbonate/Glycine (Tums) 500 mg PO Q2H PRN PRN Reason: Indigestion Last Admin: 06/24/20 10:36 Dose: 500 mg Documented by: Clopidogrel Bisulfate (Plavix) 75 mg PO DAILY [facility] Last Admin: 06/26/20 08:22 Dose: 75 mg Documented by: Dextrose/Water (Dextrose 50% In Water) 50 ml IVPUSH ASDIRECTED PRN PRN Reason: Hypoglycemia Donepezil HCl (Aricept) 5 mg PO BEDTIME [facility] Last Admin: 06/25/20 20:26 Dose: 5 mg Documented by: Glucagon (Glucagen) 1 mg IM ASDIRECTED PRN PRN Reason: Hypoglycemia Insulin Glargine (Lantus Solostar) 20 units SUBCUT BID [facility] Last Admin: 06/25/20 09:21 Dose: Not Given Documented by: Insulin Human Lispro (Humalog) 0 unit SUBCUT TIDMEALS [facility]; Protocol Last Admin: 06/26/20 07:25 Dose: 6 units Documented by: Metoprolol Succinate (Toprol Xl) 25 mg PO DAILY [facility] Last Admin: 06/26/20 08:22 Dose: 25 mg Documented by: Nitroglycerin (Nitrostat) 0.4 mg SL ASDIRECTED PRN PRN Reason: Chest Pain Ondansetron HCl (Zofran Odt) 4 mg PO Q6H PRN PRN Reason: nausea, able to take PO Pantoprazole Sodium (Protonix) 40 mg PO BEDTIME [facility] Last Admin: 06/25/20 20:25 Dose: 40 mg Documented by: Potassium Chloride (Klor-Con M20) 20 meq PO BID [facility] Last Admin: 06/26/20 08:21 Dose: 20 meq Documented by: Sodium Chloride (Saline Flush) 10 ml FLUSH ASDIRECTED PRN PRN Reason: Keep Vein Open Last Admin: 06/25/20 18:11 Dose: 10 ml Documented by: Discontinued Medications Dexamethasone (Dexamethasone) 6 mg IVPUSH DAILY [facility] Stop: 07/01/20 17:16 Last Admin: 06/25/20 08:58 Dose: 6 mg Documented by: Glipizide (Glucotrol Xl) 10 mg PO BID [facility] Last Admin: 06/21/20 20:15 Dose: Not Given Documented by: Hydroxyzine HCl (Atarax) 25 mg PO BEDTIME PRN PRN Reason: Insomnia Last Admin: 06/23/20 21:37 Dose: 25 mg Documented by: Sodium Chloride (Normal Saline) 1,000 mls @ 75 mls/hr IV ASDIRECTED [facility] Last Infusion: 06/25/20 13:05 Dose: 50 mls/hr Documented by: Remdesivir 200 mg/ Sodium (Chloride) 250 mls @ 200 mls/hr IV ONETIME ONE Stop: 06/21/20 21:01 Last Admin: 06/21/20 20:23 Dose: 200 mls/hr Documented by: Remdesivir 100 mg/ Sodium (Chloride) 100 mls @ 100 mls/hr IV Q24H [facility] Stop: 06/25/20 18:59 Last Admin: 06/25/20 17:11 Dose: 100 mls/hr Documented by: Insulin Glargine (Lantus Solostar) 20 units SUBCUT BID [facility] Last Admin: 06/21/20 20:26 Dose: 20 unit Documented by: Sitagliptin Phosphate (Januvia) 100 mg PO DAILY [facility] Last Admin: 06/22/20 09:03 Dose: 100 mg Documented by: Sodium Chloride (Saline Flush) 10 ml FLUSH ASDIRECTED PRN PRN Reason: Keep Vein Open - Exam General: Alert, Oriented (person), Cooperative, No Acute Distress Lungs: Clear to Auscultation, Normal Respiratory Effort, Crackles (rare fine in bases) Cardiovascular: Regular Rate, Regular Rhythm GI/Abdominal Exam: Normal Bowel Sounds, Soft, Non-Tender, No Distention Extremities: No Pedal Edema, Normal Capillary Refill Peripheral Pulses: 2+: Radial (L), Radial (R) Sepsis Event Note - Evaluation Sepsis Screening Result: No Definite Risk - Focused Exam Vital Signs: Vital Signs Temp Temp Pulse Pulse Pulse Resp BP 06/26/20 08:22 62 134/68 06/26/20 08:15 97.8 F 62 22 H 06/26/20 06:45 64 06/26/20 05:30 98.8 F 67 18 06/26/20 00:00 98.6 F 65 20 06/25/20 23:00 65 16 BP BP Pulse Ox Pulse Ox 06/26/20 08:22 06/26/20 08:15 134/68 93 L 06/26/20 06:45 95 06/26/20 05:30 126/49 L 95 06/26/20 00:00 118/53 L 97 97 06/25/20 23:00 96 - Problem List & Annotations (1) COVID-19 SNOMED Code(s): 922006901 Code(s): U07.1 - COVID-19 Status: Acute Current Visit: Yes (2) Viral pneumonia SNOMED Code(s): 18432550 Code(s): J12.9 - VIRAL PNEUMONIA, UNSPECIFIED Status: Acute Current Visit: Yes (3) Hypoxic SNOMED Code(s): 217424137 Code(s): R09.02 - HYPOXEMIA Status: Acute Current Visit: Yes (4) Diabetes SNOMED Code(s): 24248882 Code(s): E11.9 - TYPE 2 DIABETES MELLITUS WITHOUT COMPLICATIONS Status: Chronic Current Visit: Yes Qualifiers: Diabetes mellitus assistant terminal manager insulin use: with assistant terminal manager use (5) GERD (gastroesophageal reflux disease) SNOMED Code(s): 546575304 Code(s): K21.9 - GASTRO-ESOPHAGEAL REFLUX DISEASE WITHOUT ESOPHAGITIS Status: Chronic Priority: Medium Current Visit: No Qualifiers: Esophagitis presence: with esophagitis (6) Neurocognitive deficits SNOMED Code(s): 252777057 Code(s): R29.818 - OTHER SYMPTOMS AND SIGNS INVOLVING THE NERVOUS SYSTEM; R41.89 - OTH SYMPTOMS AND SIGNS W COGNITIVE FUNCTIONS AND AWARENESS Status: Chronic Current Visit: Yes (7) Palliative care patient SNOMED Code(s): 560352664, 330726260 Code(s): Z51.5 - ENCOUNTER FOR PALLIATIVE CARE Status: Chronic Current Visit: Yes (8) CHF (congestive heart failure) SNOMED Code(s): 76294777 Code(s): I50.9 - HEART FAILURE, UNSPECIFIED Status: Chronic Current Visit: Yes Qualifiers: Heart failure type: unspecified Annotation/Comment:: Echo in 09/2017, EF of 65% (9) Delirium with dementia SNOMED Code(s): 631603298 Code(s): R41.0 - DISORIENTATION, UNSPECIFIED Status: Acute Current Visit: Yes Annotation/Comment:: Possibly secondary to Dexamethasone, will discontinue. (10) Generalized weakness SNOMED Code(s): 14148403 Code(s): R53.1 - WEAKNESS Status: Acute Current Visit: Yes (11) Recurrent falls SNOMED Code(s): 089406407 Code(s): R29.6 - REPEATED FALLS Status: Acute Current Visit: Yes - Problem List Review Problem List Initiated/Reviewed/Updated: Yes - My Orders Last 24 Hours: My Active Orders 06/26/20 06:00 OT Evaluation and Treatment [CONS] Routine PT Evaluation and Treatment [CONS] Routine 06/27/20 06:00 CBC WITH AUTO DIFF [HEME] DAILY COMPREHENSIVE METABOLIC PN,CMP [CHEM] DAILY - Plan Plan:: 1. COVID viral pneumonia: Completed treatment of Remdesivir. Oxygen to keep sats >94% by nasal cannula. Currently 1-2L. 2. DM: Accuchecks qidac&hs, Consistent carb diet, Lantus substitute for Levemir 20 units bid, Humalog medium dose sliding scale. Continue to hold oral diabetic meds at this time. 3. DVT: TEDs BLE, Plavix 75 mg daily, platelets 113l, D-Dimer ordered since he is not able to be weaned though completed treatment. 4. Dyspepsia: Tums 500 mg q2h as needed, keep head of bed at 30 degrees. 5. Delirium with dementia: Most likely secondary to steroids, discontinued. Symptoms are mild at this point will NOT do Haldol at this time. Will have someone sit with him, have asked the to come in.
[2020-06-26] MEDS ORDERED: Enoxaparin 40 MG/0.4 ML Syringe SUBCUT SCH (09:30)
--- NOTE | 2020-06-26 10:16 | CR ---
INDICATION: Followup COVID pneumonia. CHEST, ONE VIEW: Portable AP upright view of the chest 06/24/20 was compared with 06/21/20 and 07/06/10. There are again noted bilateral infiltrates compatible with COVID-19 pneumonia. These appear to be slightly more prominent, possibly emphasized by the AP positioning and poor inspiration but there may be a mild degree of progression especially in the right mid lung field. The heart appears prominent emphasized also by the poor inspiration and AP positioning. When clinically possible, full inspiration PA and lateral views of the chest may be helpful for further evaluation. MTDD
[2020-06-26] MEDS ORDERED: Heparin Sodium 5,000 Units/ML Vial IVPUSH ONE (10:45)
[2020-06-26] MEDS: Sodium Chloride 0.9% 10 ML Syringe FLUSH PRN ×2 (11:01→13:10)
[2020-06-26] MEDS: Heparin Sodium/0.45% NaCl 25,000 UNITS/500 ML BAG IV SCH (13:15)
--- NOTE | 2020-06-26 13:41 | PCM.SN.2 ---
- Free Text/Narrative Note: [facility] Date: 06/26/2020 Time: 1255 to 1312 Dx: COVID 19 positive with Increasing Shortness of Breath, Poor Peripheral Venous Access Rx: Obtain Peripheral Venous Access Procedure: Placement of Peripheral Venous Access Catheter I was called to the [facility] wing for placement of an IV after failed nursing attempts. I had proper PPE on for this situation. I attempted once with vein rupture on his right upper arm. I then found another superficial vein in his very upper left medial arm. I prepped the area with ChloraPrep and allowed it to dry. I then inserted and advanced a BD [employer] BC Winged 20 GA. X 1.16 IN. catheter times one attempt. It was flushed with 13 ml's of normal saline without complication and an OP-Site dressing was applied. The patient tolerated this procedure well. Ralph Seymour CRNA [place]
[2020-06-26] MEDS: Donepezil 5 MG Tab PO SCH (20:16)
[2020-06-26] MEDS: atorvaSTATin 40 MG Tab PO SCH (20:17)
[2020-06-26] MEDS: predniSONE 10 MG Tab PO SCH (20:22)
[2020-06-26] MEDS: Pantoprazole 40 MG Tab.CR PO SCH (20:22)
[2020-06-26] MEDS: Insulin Glargine,Human Rec. Analog 100 Units/ML 3 ML Pen SUBCUT SCH (21:00)
[2020-06-26] MEDS ORDERED: Morphine 2 MG/ML SYRINGE ONE (23:25)
[2020-06-26] MEDS ORDERED: Morphine 2 MG/ML SYRINGE IVPUSH ONE (23:28)
[2020-06-27] MEDS ORDERED: LORazepam 2 MG/ML SDV IVPUSH ONE (00:08)
[2020-06-27] MEDS ORDERED: LORazepam 2 MG/ML SDV ONE (00:10)
[2020-06-27 00:55] LABS: PCO2 VENOUS,POC 38 mmHg (41-51)
[2020-06-27 00:56] LABS: BASE EXCESS VENOUS,POC -1 mmol/L (-2-3); HCO3 VENOUS,POC 24 mmol/L (21-29)
[2020-06-27] MEDS ORDERED: OLANZapine 10 MG Vial IM ONE (01:12)
[2020-06-27] MEDS: predniSONE 10 MG Tab PO SCH ×2 (02:43→08:52)
[2020-06-27] MEDS: Budesonide 0.5 MG/2 ML Neb Susp NEB SCH ×2 (06:31→20:06)
[2020-06-27] MEDS: Potassium Chloride 20 MEQ Tab.ER PO SCH (08:51)
[2020-06-27] MEDS: Metoprolol Succinate 25 MG Tab.ER PO SCH (08:53)
[2020-06-27] MEDS ORDERED: diphenhydrAMINE 50 MG Cap PO ONE (09:00)
[2020-06-27] MEDS: Heparin Sodium/0.45% NaCl 25,000 UNITS/500 ML BAG IV SCH (09:01)
[2020-06-27] MEDS: Albuterol 0.083% 2.5 MG/3 ML Neb Soln NEB PRN ×4 (09:05→22:11)
[2020-06-27] MEDS: Insulin Lispro 100 Unit/ML 3 ML KwikPen SUBCUT SCH ×3 (09:14→18:05)
[2020-06-27] MEDS: Insulin Glargine,Human Rec. Analog 100 Units/ML 3 ML Pen SUBCUT SCH ×3 (09:15→20:00)
[2020-06-27] MEDS ORDERED: Iopamidol 755 Mg/ML 100 ML Bottle IV ONE (09:42)
--- NOTE | 2020-06-27 10:39 | CR ---
INDICATION: Low O2, COVID. CHEST ONE VIEW: AP upright view of the chest 06/27/20 was compared with 06/24 and 06/21/20. Infiltration appears to be more prominent scattered about the lungs compatible with increase in severity of COVID-19 pneumonia. No other change or new acute process was seen. The heart remains prominent with tortuous aorta, calcified in the arch, and bipolar pacemaker leads are unchanged in position. Overlying EKG leads are noted. IMPRESSION: Increasing infiltration appears to be present bilaterally compatible with progressively more severe pneumonia. MTDD
[2020-06-27] MEDS ORDERED: LORazepam 2 MG/ML SDV IVPUSH PRN (10:46)
[2020-06-27] MEDS ORDERED: Morphine 2 MG/ML SYRINGE IVPUSH PRN (10:46)
--- NOTE | 2020-06-27 11:42 | CT ---
INDICATION: Short of breath, D-dimer greater than 3.5, COVID positive, question PE. COMPUTERIZED TOMOGRAPHY ANGIOGRAPHY OF THE CHEST WITH CONTRAST: Spiral 1.25 mm axial sections were obtained through the chest with 100 cc of Isovue-370 at 3 cc per second with sagittal, coronal and axial reconstructions 06/27/20 - no comparisons. Total exam DLP was 911.48 mGy-cm. At the lower pole of the right lobe of the thyroid there was a 7 mm low-density lesion, etiology indeterminate, ultrasound may be helpful for further evaluation. Brachiocephalic artery calcifications are noted along with aortic arch and descending and ascending aortic calcifications as well as coronary artery calcifications. The heart is enlarged. Mild thickening of the pericardium is noted. There is suggestion of a small fixed hiatal hernia. Calcifications are also noted in the abdominal aorta and splenic, as well as superior mesenteric arteries and proximal renal arteries. A 31 mm low-density lesion in the posterior upper middle pole medial cortex of the right kidney is noted, mostly exophytic. Gallbladder is contracted. Rather extensive consolidating pneumonia is noted in the lower lobes and upper lobes with the highest degree of consolidation at the lower lobes and especially a greater amount of infiltrate appears to be present in the left lower lobe. In the upper lobes, the infiltration is less consolidated and again is more prominent on the left than right. The infiltrations may be on the basis of COVID-19 pneumonia. IMPRESSION: 1. No gross evidence of pulmonary emboli identified - detail of the pulmonary arteries is less than ideal due to patient inability to hold his breath. 2. Extensive bilateral infiltration which could be on the basis of COVID-19 pneumonia. It appears to be more severe peripherally and more severe in the lower lobes. 3. ASHD with cardiomegaly, bipolar pacemaker leads and slight thickening of the pericardium. 4. 3 cm low-density lesion right kidney, likely a simple cyst. Report was called to Dr. Hoffman at 1121 hours, 06/27/20. [facility]
--- NOTE | 2020-06-27 14:03 | PCM.PN ---
- General Info Date of Service: 06/27/20 Subjective Update: Alexandru worsened overnight, was placed on BiPAP at 70% 03/13, saturating now at 95- 97%. His was notified this morning, she stated he did have an advance directive that states she does not want CPR or intubation. This was sent over from the clinic and code status was changed to reflect his wishes. Was agitated overnight due to BiPAP received some Ativan and Zyprexa last night. Has taken some sips of water with his medications okay. CT angiogram this morning was able to be completed, did not have any reactions to contrast. It did not show pulmonary embolism though he was not able to hold his breath. He was on high flow nasal cannula for procedure. Worsening pneumonia related to Covid. - Patient Data Vitals - Most Recent: Last Vital Signs Temp 97.9 F 06/27/20 11:25 Pulse 67 06/27/20 11:25 Resp 24 H 06/27/20 11:25 BP 136/66 06/27/20 11:25 Pulse Ox 92 L 06/27/20 12:20 Weight - Most Recent: 241 lb 14.4 oz I&O - Last 24 Hours: Intake & Output 06/26/20 06/27/20 06/27/20 22:59 06:59 14:59 Intake Total 332 403 121 Output Total 0 0 Balance 332 403 121 Lab Results Last 24 Hours: Laboratory Results - last 24 hr 06/26/20 06/26/20 06/26/20 Range/Units 16:55 18:15 20:07 WBC (3.2-10.1) x10-3/uL RBC (3.90-5.90) x10(6)uL Hgb (12.9-17.7) g/dL Hct (38.3-50.1) % MCV (80.8-98.7) fL MCH (27.0-33.3) pg MCHC (28.7-35.3) g/dL RDW (12.4-15.0) % Plt Count (117-477) x10(3)uL MPV (6.7-11.0) fL Neut % (Auto) (40.3-71.8) % Lymph % (Auto) (15.8-45.3) % Marshall % (Auto) (5.5-15.2) % Eos % (Auto) (0.1-6.8) % Baso % (Auto) (0.3-3.8) % Neut # (Auto) (1.7-6.9) x10-3/uL Lymph # (Auto) (0.5-4.5) x10-3/uL Marshall # (Auto) (0.0-1.2) x10-3/uL Eos # (Auto) (0.0-0.6) x10-3/uL Baso # (Auto) (0.0-0.3) x10-3/uL APTT 53.6 H (24.4-33.2) SECONDS POC VBG pH (7.32-7.43) pH Units POC VBG pCO2 (41-51) mmHg POC VBG HCO3 (21-29) mmol/L VBG Base Excess (-2-3) mmol/L O2 Delivery Device Sodium (135-145) mmol/L Potassium (3.5-5.3) mmol/L Chloride (100-110) mmol/L Carbon Dioxide (21-32) mmol/L BUN (7-18) mg/dL Creatinine (0.70-1.30) mg/dL Est Cr Clr Drug Dosing mL/min Estimated GFR (MDRD) (>60) BUN/Creatinine Ratio (9-20) Glucose (80-116) mg/dL POC Glucose 281 H 343 H (74-100) mg/dL Calcium (8.6-10.2) mg/dL Total Bilirubin (0.1-1.3) mg/dL AST (5-25) IU/L ALT (12-36) U/L Alkaline Phosphatase (56-112) IU/L Total Protein (6.0-8.0) g/dL Albumin (3.2-4.6) g/dL Globulin g/dL Albumin/Globulin Ratio 06/26/20 06/26/20 06/27/20 Range/Units 23:10 23:10 05:05 WBC 9.6 (3.2-10.1) x10-3/uL RBC 4.50 (3.90-5.90) x10(6)uL Hgb 12.6 L (12.9-17.7) g/dL Hct 38.6 (38.3-50.1) % MCV 85.7 (80.8-98.7) fL MCH 28.0 (27.0-33.3) pg MCHC 32.7 (28.7-35.3) g/dL RDW 15.9 H (12.4-15.0) % Plt Count 119 (117-477) x10(3)uL MPV 9.3 (6.7-11.0) fL Neut % (Auto) 92.1 H (40.3-71.8) % Lymph % (Auto) 3.9 L (15.8-45.3) % Marshall % (Auto) 3.9 L (5.5-15.2) % Eos % (Auto) 0.0 L (0.1-6.8) % Baso % (Auto) 0.1 L (0.3-3.8) % Neut # (Auto) 8.8 H (1.7-6.9) x10-3/uL Lymph # (Auto) 0.4 L (0.5-4.5) x10-3/uL Marshall # (Auto) 0.4 (0.0-1.2) x10-3/uL Eos # (Auto) 0.0 (0.0-0.6) x10-3/uL Baso # (Auto) 0.0 (0.0-0.3) x10-3/uL APTT 64.0 H* (24.4-33.2) SECONDS POC VBG pH 7.40 (7.32-7.43) pH Units POC VBG pCO2 38 L (41-51) mmHg POC VBG HCO3 24 (21-29) mmol/L VBG Base Excess -1 (-2-3) mmol/L O2 Delivery Device Non rebr mask Sodium (135-145) mmol/L Potassium (3.5-5.3) mmol/L Chloride (100-110) mmol/L Carbon Dioxide (21-32) mmol/L BUN (7-18) mg/dL Creatinine (0.70-1.30) mg/dL Est Cr Clr Drug Dosing mL/min Estimated GFR (MDRD) (>60) BUN/Creatinine Ratio (9-20) Glucose (80-116) mg/dL POC Glucose (74-100) mg/dL Calcium (8.6-10.2) mg/dL Total Bilirubin (0.1-1.3) mg/dL AST (5-25) IU/L ALT (12-36) U/L Alkaline Phosphatase (56-112) IU/L Total Protein (6.0-8.0) g/dL Albumin (3.2-4.6) g/dL Globulin g/dL Albumin/Globulin Ratio 06/27/20 06/27/20 06/27/20 Range/Units 05:05 05:05 06:40 WBC (3.2-10.1) x10-3/uL RBC (3.90-5.90) x10(6)uL Hgb (12.9-17.7) g/dL Hct (38.3-50.1) % MCV (80.8-98.7) fL MCH (27.0-33.3) pg MCHC (28.7-35.3) g/dL RDW (12.4-15.0) % Plt Count (117-477) x10(3)uL MPV (6.7-11.0) fL Neut % (Auto) (40.3-71.8) % Lymph % (Auto) (15.8-45.3) % Marshall % (Auto) (5.5-15.2) % Eos % (Auto) (0.1-6.8) % Baso % (Auto) (0.3-3.8) % Neut # (Auto) (1.7-6.9) x10-3/uL Lymph # (Auto) (0.5-4.5) x10-3/uL Marshall # (Auto) (0.0-1.2) x10-3/uL Eos # (Auto) (0.0-0.6) x10-3/uL Baso # (Auto) (0.0-0.3) x10-3/uL APTT 73.4 H* (24.4-33.2) SECONDS POC VBG pH (7.32-7.43) pH Units POC VBG pCO2 (41-51) mmHg POC VBG HCO3 (21-29) mmol/L VBG Base Excess (-2-3) mmol/L O2 Delivery Device Sodium 135 (135-145) mmol/L Potassium 4.3 (3.5-5.3) mmol/L Chloride 101 (100-110) mmol/L Carbon Dioxide 25 (21-32) mmol/L BUN 19 H (7-18) mg/dL Creatinine 1.0 (0.70-1.30) mg/dL Est Cr Clr Drug Dosing 71.02 mL/min Estimated GFR (MDRD) > 60 (>60) BUN/Creatinine Ratio 19.0 (9-20) Glucose 275 H (80-116) mg/dL POC Glucose 296 H (74-100) mg/dL Calcium 7.5 L (8.6-10.2) mg/dL Total Bilirubin 0.9 (0.1-1.3) mg/dL AST 26 H D (5-25) IU/L ALT 42 H D (12-36) U/L Alkaline Phosphatase 127 H (56-112) IU/L Total Protein 6.0 (6.0-8.0) g/dL Albumin 2.1 L (3.2-4.6) g/dL Globulin 3.9 g/dL Albumin/Globulin Ratio 0.5 / Range/Units 11:15 WBC (3.2-10.1) x10-3/uL RBC (3.90-5.90) x10(6)uL Hgb (12.9-17.7) g/dL Hct (38.3-50.1) % MCV (80.8-98.7) fL MCH (27.0-33.3) pg MCHC (28.7-35.3) g/dL RDW (12.4-15.0) % Plt Count (117-477) x10(3)uL MPV (6.7-11.0) fL Neut % (Auto) (40.3-71.8) % Lymph % (Auto) (15.8-45.3) % Marshall % (Auto) (5.5-15.2) % Eos % (Auto) (0.1-6.8) % Baso % (Auto) (0.3-3.8) % Neut # (Auto) (1.7-6.9) x10-3/uL Lymph # (Auto) (0.5-4.5) x10-3/uL Marshall # (Auto) (0.0-1.2) x10-3/uL Eos # (Auto) (0.0-0.6) x10-3/uL Baso # (Auto) (0.0-0.3) x10-3/uL APTT (24.4-33.2) SECONDS POC VBG pH (7.32-7.43) pH Units POC VBG pCO2 (41-51) mmHg POC VBG HCO3 (21-29) mmol/L VBG Base Excess (-2-3) mmol/L O2 Delivery Device Sodium (135-145) mmol/L Potassium (3.5-5.3) mmol/L Chloride (100-110) mmol/L Carbon Dioxide (21-32) mmol/L BUN (7-18) mg/dL Creatinine (0.70-1.30) mg/dL Est Cr Clr Drug Dosing mL/min Estimated GFR (MDRD) (>60) BUN/Creatinine Ratio (9-20) Glucose (80-116) mg/dL POC Glucose 299 H (74-100) mg/dL Calcium (8.6-10.2) mg/dL Total Bilirubin (0.1-1.3) mg/dL AST (5-25) IU/L ALT (12-36) U/L Alkaline Phosphatase (56-112) IU/L Total Protein (6.0-8.0) g/dL Albumin (3.2-4.6) g/dL Globulin g/dL Albumin/Globulin Ratio Med Orders - Current: Current Medications Acetaminophen (Tylenol) 650 mg PO Q4H PRN PRN Reason: Pain (Mild 1-3)/fever Last Admin: 06/23/20 02:27 Dose: 650 mg Documented by: Albuterol (Proventil Neb Soln) 2.5 mg NEB Q4H PRN PRN Reason: Shortness of Breath Last Admin: 06/27/20 13:25 Dose: 2.5 mg Documented by: Budesonide (Pulmicort) 0.5 mg NEB BIDRT TONIE Last Admin: 06/27/20 06:31 Dose: 0.5 mg Documented by: Calcium Carbonate/Glycine (Tums) 500 mg PO Q2H PRN PRN Reason: Indigestion Last Admin: 06/24/20 10:36 Dose: 500 mg Documented by: Dextrose/Water (Dextrose 50% In Water) 50 ml IVPUSH ASDIRECTED PRN PRN Reason: Hypoglycemia Enoxaparin Sodium (Lovenox) 40 mg SUBCUT DAILY@1600 [facility] Glucagon (Glucagen) 1 mg IM ASDIRECTED PRN PRN Reason: Hypoglycemia Insulin Glargine (Lantus Solostar) 10 units SUBCUT BID [facility] Last Admin: 06/27/20 09:15 Dose: 10 units Documented by: Insulin Human Lispro (Humalog) 0 unit SUBCUT TIDMEALS [facility]; Protocol Last Admin: 06/27/20 12:23 Dose: 9 units Documented by: Lorazepam (Ativan) 1 mg IVPUSH Q2H PRN PRN Reason: Anxiety Metoprolol Succinate (Toprol Xl) 25 mg PO DAILY [facility] Last Admin: 06/27/20 08:53 Dose: 25 mg Documented by: Morphine Sulfate (Morphine) 2 mg IVPUSH Q2H PRN PRN Reason: air hunger Nitroglycerin (Nitrostat) 0.4 mg SL ASDIRECTED PRN PRN Reason: Chest Pain Ondansetron HCl (Zofran Odt) 4 mg PO Q6H PRN PRN Reason: nausea, able to take PO Pantoprazole Sodium (Protonix) 40 mg PO BEDTIME [facility] Last Admin: 06/26/20 20:22 Dose: 40 mg Documented by: Sodium Chloride (Saline Flush) 10 ml FLUSH ASDIRECTED PRN PRN Reason: Keep Vein Open Last Admin: 06/26/20 13:10 Dose: 10 ml Documented by: Discontinued Medications Albuterol (Ventolin Hfa) 0 gm INH Q4H PRN PRN Reason: Wheezing Atorvastatin Calcium (Lipitor) 40 mg PO BEDTIME [facility] Last Admin: 06/26/20 20:17 Dose: 40 mg Documented by: Clopidogrel Bisulfate (Plavix) 75 mg PO DAILY [facility] Last Admin: 06/26/20 08:22 Dose: 75 mg Documented by: Dexamethasone (Dexamethasone) 6 mg IVPUSH DAILY [facility] Stop: 07/01/20 17:16 Last Admin: 06/25/20 08:58 Dose: 6 mg Documented by: Diphenhydramine HCl (Benadryl) 50 mg PO ONETIME ONE Stop: 06/27/20 09:01 Last Admin: 06/27/20 08:51 Dose: 50 mg Documented by: Donepezil HCl (Aricept) 5 mg PO BEDTIME TONIE Last Admin: 06/26/20 20:16 Dose: 5 mg Documented by: Glipizide (Glucotrol Xl) 10 mg PO BID TONIE Last Admin: 06/21/20 20:15 Dose: Not Given Documented by: Heparin Sodium (Porcine) (Heparin Sodium) 5,000 units IVPUSH ONETIME ONE Stop: 06/26/20 10:46 Last Admin: 06/26/20 11:01 Dose: 5,000 units Documented by: Hydroxyzine HCl (Atarax) 25 mg PO BEDTIME PRN PRN Reason: Insomnia Last Admin: 06/23/20 21:37 Dose: 25 mg Documented by: Sodium Chloride (Normal Saline) 1,000 mls @ 75 mls/hr IV ASDIRECTED [facility] Last Infusion: 06/25/20 13:05 Dose: 50 mls/hr Documented by: Remdesivir 200 mg/ Sodium (Chloride) 250 mls @ 200 mls/hr IV ONETIME ONE Stop: 06/21/20 21:01 Last Admin: 06/21/20 20:23 Dose: 200 mls/hr Documented by: Remdesivir 100 mg/ Sodium (Chloride) 100 mls @ 100 mls/hr IV Q24H TONIE Stop: 06/25/20 18:59 Last Admin: 06/25/20 17:11 Dose: 100 mls/hr Documented by: Heparin Sodium/Sodium Chloride (Heparin 25,000 Units In 1/2 Ns 500 Ml) 25,000 units in 500 mls @ 25.983 mls/hr IV TITRATE TONIE; Protocol Last Admin: 06/27/20 09:01 Dose: 9.84 units/kg/hr, 21.594 mls/hr Documented by: Insulin Glargine (Lantus Solostar) 20 units SUBCUT BID [facility] Last Admin: 06/21/20 20:26 Dose: 20 unit Documented by: Insulin Glargine (Lantus Solostar) 20 units SUBCUT BID [facility] Last Admin: 06/27/20 09:54 Dose: Not Given Documented by: Iopamidol (Isovue-370 (76%)) 100 ml IV . DIRECTED ONE Stop: 06/27/20 09:43 Last Admin: 06/27/20 10:32 Dose: 100 ml Documented by: Lorazepam (Ativan) 1 mg IVPUSH ONETIME ONE Stop: 06/27/20 00:09 Last Admin: 06/27/20 00:16 Dose: 1 mg Documented by: Lorazepam (Ativan) Confirm Administered Dose 2 mg .ROUTE .STK-MED ONE Stop: 06/27/20 00:11 Last Admin: 06/27/20 00:17 Dose: Not Given Documented by: Morphine Sulfate (Morphine) Confirm Administered Dose 2 mg .ROUTE .STK-MED ONE Stop: 06/26/20 23:26 Last Admin: 06/26/20 23:49 Dose: Not Given Documented by: Morphine Sulfate (Morphine) 2 mg IVPUSH ONETIME ONE Stop: 06/26/20 23:29 Last Admin: 06/26/20 23:28 Dose: 2 mg Documented by: Olanzapine (Zyprexa) 5 mg IM ONETIME ONE Stop: 06/27/20 01:13 Last Admin: 06/27/20 01:22 Dose: 5 mg Documented by: Potassium Chloride (Klor-Con M20) 20 meq PO BID [facility] Last Admin: 06/27/20 08:51 Dose: 20 meq Documented by: Prednisone (Prednisone) 50 mg PO TID@0300,0900,2100 [facility] Stop: 06/27/20 09:01 Last Admin: 06/27/20 08:52 Dose: 50 mg Documented by: Sitagliptin Phosphate (Januvia) 100 mg PO DAILY [facility] Last Admin: 06/22/20 09:03 Dose: 100 mg Documented by: Sodium Chloride (Saline Flush) 10 ml FLUSH ASDIRECTED PRN PRN Reason: Keep Vein Open - Exam Quality Assessment: Supplemental Oxygen (on BiPAP) General: Obtunded Lungs: Normal Respiratory Effort, Decreased Breath Sounds, Crackles (BLL, RML). No: Wheezing Cardiovascular: Regular Rate, Regular Rhythm GI/Abdominal Exam: Normal Bowel Sounds, Soft, No Distention Sepsis Event Note - Evaluation Sepsis Screening Result: No Definite Risk - Focused Exam Vital Signs: Vital Signs Temp Pulse Pulse Resp BP BP Pulse Ox 06/27/20 12:20 06/27/20 11:25 97.9 F 67 24 H 136/66 97 06/27/20 11:20 06/27/20 10:35 06/27/20 10:15 06/27/20 09:48 06/27/20 08:53 68 126/58 L 06/27/20 08:00 97.6 F 68 27 H 141/54 H 95 06/27/20 06:00 60 20 137/68 95 06/27/20 05:00 64 16 127/69 95 06/27/20 04:00 60 121/57 L 93 L 06/27/20 03:00 64 30 H 120/55 L 95 06/27/20 02:30 67 28 H 122/49 L 95 Pulse Ox Pulse Ox 06/27/20 12:20 92 L 06/27/20 11:25 06/27/20 11:20 97 06/27/20 10:35 88 L 06/27/20 10:15 95 06/27/20 09:48 97 06/27/20 08:53 06/27/20 08:00 95 06/27/20 06:00 06/27/20 05:00 06/27/20 04:00 06/27/20 03:00 06/27/20 02:30 - Problem List & Annotations (1) COVID-19 SNOMED Code(s): 069010721 Code(s): U07.1 - COVID-19 Status: Acute Current Visit: Yes (2) Viral pneumonia SNOMED Code(s): 83259245 Code(s): J12.9 - VIRAL PNEUMONIA, UNSPECIFIED Status: Acute Current Visit: Yes (3) Hypoxic SNOMED Code(s): 431814541 Code(s): R09.02 - HYPOXEMIA Status: Acute Current Visit: Yes Annotation/Comment:: on BiPAP (4) Diabetes SNOMED Code(s): 65101148 Code(s): E11.9 - TYPE 2 DIABETES MELLITUS WITHOUT COMPLICATIONS Status: Chronic Current Visit: Yes Qualifiers: Diabetes mellitus intermodal dispatcher insulin use: with intermodal dispatcher use (5) GERD (gastroesophageal reflux disease) SNOMED Code(s): 051230280 Code(s): K21.9 - GASTRO-ESOPHAGEAL REFLUX DISEASE WITHOUT ESOPHAGITIS Status: Chronic Priority: Medium Current Visit: No Qualifiers: Esophagitis presence: with esophagitis (6) Neurocognitive deficits SNOMED Code(s): 907890845 Code(s): R29.818 - OTHER SYMPTOMS AND SIGNS INVOLVING THE NERVOUS SYSTEM; R41.89 - OTH SYMPTOMS AND SIGNS W COGNITIVE FUNCTIONS AND AWARENESS Status: Chronic Current Visit: Yes (7) Palliative care patient SNOMED Code(s): 779953529, 230402735 Code(s): Z51.5 - ENCOUNTER FOR PALLIATIVE CARE Status: Chronic Current Visit: Yes (8) CHF (congestive heart failure) SNOMED Code(s): 70470660 Code(s): I50.9 - HEART FAILURE, UNSPECIFIED Status: Chronic Current Visit: Yes Qualifiers: Heart failure type: unspecified Annotation/Comment:: Echo in 09/2017, EF of 65% (9) Delirium with dementia SNOMED Code(s): 105071517 Code(s): R41.0 - DISORIENTATION, UNSPECIFIED Status: Acute Current Visit: Yes (10) Generalized weakness SNOMED Code(s): 14338923 Code(s): R53.1 - WEAKNESS Status: Acute Current Visit: Yes (11) Recurrent falls SNOMED Code(s): 184220079 Code(s): R29.6 - REPEATED FALLS Status: Acute Current Visit: Yes - Problem List Review Problem List Initiated/Reviewed/Updated: Yes - My Orders Last 24 Hours: My Active Orders 06/27/20 08:06 Albuterol [Proventil Neb Soln] 2.5 mg NEB Q4H PRN 06/27/20 08:07 RT Aerosol Therapy [RC] ASDIRECTED 06/27/20 08:09 CXR [Chest 1V Frontal] [CR] Routine 06/27/20 08:33 Patient Status [ADT] Routine 06/27/20 09:15 Insulin Glarg,Human.Rec.Analog [LantUS Solostar] 10 units SUBCUT BID 06/27/20 10:29 Code Status [Resuscitation Status] Routine 06/27/20 10:46 LORazepam [Ativan] 1 mg IVPUSH Q2H PRN Morphine 2 mg IVPUSH Q2H PRN 06/27/20 16:00 Enoxaparin [Lovenox] 40 mg SUBCUT DAILY@1600 06/29/20 11:00 CBC W/O DIFF,HEMOGRAM [HEME] Q48H 07/01/20 11:00 CBC W/O DIFF,HEMOGRAM [HEME] Q48H 07/03/20 11:00 CBC W/O DIFF,HEMOGRAM [HEME] Q48H 07/05/20 11:00 CBC W/O DIFF,HEMOGRAM [HEME] Q48H 07/07/20 11:00 CBC W/O DIFF,HEMOGRAM [HEME] Q48H - Plan Plan:: 1. COVID viral pneumonia: worsened overnight on BiPAP, advance directive received from clinic shows DNR/DNI, confirmed by family. Will continue present cares, has worsening pneumonia, labs consistent with viral, WBC 9.6. 2. DM: Accuchecks qidac&hs, Consistent carb diet, Lantus 10 units bid, Humalog high dose sliding scale. 3. DVT: TEDs BLE, no PE, discontinued Heparin drip, will start Lovenox 40 mg sq daily at 1600. 4. Dyspepsia: Tums 500 mg q2h as needed, keep head of bed at 30 degrees. 5. Spiritual services: praying with family via phone/Zoom this afternoon. Advised them at this point we are doing all necessary treatments, whether he improves or worsens difficult to predict, prognosis is poor. Family did state if he passed that he would go to [facility] in [place].
[2020-06-27] MEDS: Sodium Chloride 0.9% 10 ML Syringe FLUSH PRN ×3 (16:22→21:17)
[2020-06-27] MEDS ORDERED: QUEtiapine 25 MG Tab PO PRN (16:45)
[2020-06-27] MEDS: Enoxaparin 40 MG/0.4 ML Syringe SUBCUT SCH (17:12)
[2020-06-27] MEDS: Morphine 2 MG/ML SYRINGE IVPUSH PRN ×2 (19:25→21:16)
[2020-06-27] MEDS: Pantoprazole 40 MG Tab.CR PO SCH (20:05)
[2020-06-28] MEDS: Albuterol 0.083% 2.5 MG/3 ML Neb Soln NEB PRN (02:34)
[2020-06-28] MEDS: Morphine 2 MG/ML SYRINGE IVPUSH PRN ×3 (03:48→18:47)
[2020-06-28] MEDS: Sodium Chloride 0.9% 10 ML Syringe FLUSH PRN ×4 (03:49→18:48)
[2020-06-28] MEDS: Budesonide 0.5 MG/2 ML Neb Susp NEB SCH ×2 (06:07→22:24)
[2020-06-28] MEDS: Insulin Lispro 100 Unit/ML 3 ML KwikPen SUBCUT SCH ×3 (07:52→17:28)
[2020-06-28] MEDS: Insulin Glargine,Human Rec. Analog 100 Units/ML 3 ML Pen SUBCUT SCH ×3 (07:53→20:24)
[2020-06-28] MEDS: Dexamethasone 4 MG/ML 5 ML MDV IVPUSH SCH ×2 (07:54→07:59)
[2020-06-28] MEDS: Metoprolol Succinate 25 MG Tab.ER PO SCH (08:21)
--- NOTE | 2020-06-28 14:39 | PCM.PN ---
- General Info Date of Service: 06/28/20 Subjective Update: Alexandru dropped his saturation last night to 88-90% at 75-80% FiO2, he was 94% when I examined him this morning. He drank a little bit with meds yesterday. Tried high flow oxygen so he could eat and he desaturated down to 70s. Ativan made him more agitated yesterday so discontinued and started on Seroquel which he slept well with. His pacemaker has been firing almost at 100%, his Metoprolol was held this morning due to SBP at 110. Blood sugars are still high even with decreased intake, decreased his Lantus to 10 units bid. - Patient Data Vitals - Most Recent: Last Vital Signs Temp 97.4 F 06/28/20 08:00 Pulse 68 06/28/20 13:30 Resp 29 H 06/28/20 13:30 BP 112/49 L 06/28/20 13:30 Pulse Ox 95 06/28/20 13:30 Weight - Most Recent: 241 lb 14.4 oz I&O - Last 24 Hours: Intake & Output 06/27/20 06/28/20 06/28/20 22:59 06:59 14:59 Intake Total 250 100 Balance 250 100 Lab Results Last 24 Hours: Laboratory Results - last 24 hr 06/27/20 06/27/20 06/28/20 Range/Units 16:24 22:00 06:14 POC Glucose 264 H 347 H 216 H (74-100) mg/dL 06/28/20 Range/Units 11:13 POC Glucose 213 H (74-100) mg/dL Med Orders - Current: Current Medications Acetaminophen (Tylenol) 650 mg PO Q4H PRN PRN Reason: Pain (Mild 1-3)/fever Last Admin: 06/23/20 02:27 Dose: 650 mg Documented by: Albuterol (Proventil Neb Soln) 2.5 mg NEB Q4H PRN PRN Reason: Shortness of Breath Last Admin: 06/28/20 02:34 Dose: 2.5 mg Documented by: Budesonide (Pulmicort) 0.5 mg NEB BIDRT TONIE Last Admin: 06/28/20 06:07 Dose: 0.5 mg Documented by: Calcium Carbonate/Glycine (Tums) 500 mg PO Q2H PRN PRN Reason: Indigestion Last Admin: 06/24/20 10:36 Dose: 500 mg Documented by: Dexamethasone (Dexamethasone) 6 mg IVPUSH DAILY [facility] Stop: 07/01/20 09:01 Last Admin: 06/28/20 07:59 Dose: Not Given Documented by: Dextrose/Water (Dextrose 50% In Water) 50 ml IVPUSH ASDIRECTED PRN PRN Reason: Hypoglycemia Enoxaparin Sodium (Lovenox) 40 mg SUBCUT DAILY@1800 [facility] Last Admin: 06/27/20 17:12 Dose: 40 mg Documented by: Glucagon (Glucagen) 1 mg IM ASDIRECTED PRN PRN Reason: Hypoglycemia Insulin Glargine (Lantus Solostar) 10 units SUBCUT BID [facility] Last Admin: 06/28/20 07:59 Dose: Not Given Documented by: Insulin Human Lispro (Humalog) 0 unit SUBCUT TIDMEALS [facility]; Protocol Last Admin: 06/28/20 11:56 Dose: 6 units Documented by: Metoprolol Succinate (Toprol Xl) 25 mg PO DAILY [facility] Last Admin: 06/28/20 08:21 Dose: Not Given Documented by: Morphine Sulfate (Morphine) 2 mg IVPUSH Q1H PRN PRN Reason: air hunger Last Admin: 06/28/20 13:59 Dose: 2 mg Documented by: Nitroglycerin (Nitrostat) 0.4 mg SL ASDIRECTED PRN PRN Reason: Chest Pain Pantoprazole Sodium (Protonix) 40 mg PO BEDTIME [facility] Last Admin: 06/27/20 20:05 Dose: 40 mg Documented by: Quetiapine Fumarate (Seroquel) 25 mg PO BID PRN PRN Reason: DELIRIUM Last Admin: 06/27/20 20:02 Dose: 25 mg Documented by: Sodium Chloride (Saline Flush) 10 ml FLUSH ASDIRECTED PRN PRN Reason: Keep Vein Open Last Admin: 06/28/20 14:00 Dose: 10 ml Documented by: Discontinued Medications Albuterol (Ventolin Hfa) 0 gm INH Q4H PRN PRN Reason: Wheezing Atorvastatin Calcium (Lipitor) 40 mg PO BEDTIME [facility] Last Admin: 06/26/20 20:17 Dose: 40 mg Documented by: Clopidogrel Bisulfate (Plavix) 75 mg PO DAILY [facility] Last Admin: 06/26/20 08:22 Dose: 75 mg Documented by: Dexamethasone (Dexamethasone) 6 mg IVPUSH DAILY [facility] Stop: 07/01/20 17:16 Last Admin: 06/25/20 08:58 Dose: 6 mg Documented by: Diphenhydramine HCl (Benadryl) 50 mg PO ONETIME ONE Stop: 06/27/20 09:01 Last Admin: 06/27/20 08:51 Dose: 50 mg Documented by: Donepezil HCl (Aricept) 5 mg PO BEDTIME [facility] Last Admin: 06/26/20 20:16 Dose: 5 mg Documented by: Glipizide (Glucotrol Xl) 10 mg PO BID [facility] Last Admin: 06/21/20 20:15 Dose: Not Given Documented by: Heparin Sodium (Porcine) (Heparin Sodium) 5,000 units IVPUSH ONETIME ONE Stop: 06/26/20 10:46 Last Admin: 06/26/20 11:01 Dose: 5,000 units Documented by: Hydroxyzine HCl (Atarax) 25 mg PO BEDTIME PRN PRN Reason: Insomnia Last Admin: 06/23/20 21:37 Dose: 25 mg Documented by: Sodium Chloride (Normal Saline) 1,000 mls @ 75 mls/hr IV ASDIRECTED [facility] Last Infusion: 06/25/20 13:05 Dose: 50 mls/hr Documented by: Remdesivir 200 mg/ Sodium (Chloride) 250 mls @ 200 mls/hr IV ONETIME ONE Stop: 06/21/20 21:01 Last Admin: 06/21/20 20:23 Dose: 200 mls/hr Documented by: Remdesivir 100 mg/ Sodium (Chloride) 100 mls @ 100 mls/hr IV Q24H [facility] Stop: 06/25/20 18:59 Last Admin: 06/25/20 17:11 Dose: 100 mls/hr Documented by: Heparin Sodium/Sodium Chloride (Heparin 25,000 Units In 1/2 Ns 500 Ml) 25,000 units in 500 mls @ 25.983 mls/hr IV TITRATE [facility]; Protocol Last Admin: 06/27/20 09:01 Dose: 9.84 units/kg/hr, 21.594 mls/hr Documented by: Insulin Glargine (Lantus Solostar) 20 units SUBCUT BID [facility] Last Admin: 06/21/20 20:26 Dose: 20 unit Documented by: Insulin Glargine (Lantus Solostar) 20 units SUBCUT BID [facility] Last Admin: 06/27/20 09:54 Dose: Not Given Documented by: Iopamidol (Isovue-370 (76%)) 100 ml IV . DIRECTED ONE Stop: 06/27/20 09:43 Last Admin: 06/27/20 10:32 Dose: 100 ml Documented by: Lorazepam (Ativan) 1 mg IVPUSH ONETIME ONE Stop: 06/27/20 00:09 Last Admin: 06/27/20 00:16 Dose: 1 mg Documented by: Lorazepam (Ativan) Confirm Administered Dose 2 mg .ROUTE .STK-MED ONE Stop: 06/27/20 00:11 Last Admin: 06/27/20 00:17 Dose: Not Given Documented by: Lorazepam (Ativan) 1 mg IVPUSH Q2H PRN PRN Reason: Anxiety Last Admin: 06/27/20 14:57 Dose: 1 mg Documented by: Morphine Sulfate (Morphine) Confirm Administered Dose 2 mg .ROUTE .STK-MED ONE Stop: 06/26/20 23:26 Last Admin: 06/26/20 23:49 Dose: Not Given Documented by: Morphine Sulfate (Morphine) 2 mg IVPUSH ONETIME ONE Stop: 06/26/20 23:29 Last Admin: 06/26/20 23:28 Dose: 2 mg Documented by: Morphine Sulfate (Morphine) 2 mg IVPUSH Q2H PRN PRN Reason: air hunger Last Admin: 06/27/20 16:19 Dose: 2 mg Documented by: Olanzapine (Zyprexa) 5 mg IM ONETIME ONE Stop: 06/27/20 01:13 Last Admin: 06/27/20 01:22 Dose: 5 mg Documented by: Ondansetron HCl (Zofran Odt) 4 mg PO Q6H PRN PRN Reason: nausea, able to take PO Potassium Chloride (Klor-Con M20) 20 meq PO BID [facility] Last Admin: 06/27/20 08:51 Dose: 20 meq Documented by: Prednisone (Prednisone) 50 mg PO TID@0300,0900,2100 [facility] Stop: 06/27/20 09:01 Last Admin: 06/27/20 08:52 Dose: 50 mg Documented by: Sitagliptin Phosphate (Januvia) 100 mg PO DAILY [facility] Last Admin: 06/22/20 09:03 Dose: 100 mg Documented by: Sodium Chloride (Saline Flush) 10 ml FLUSH ASDIRECTED PRN PRN Reason: Keep Vein Open - Exam General: Obtunded Lungs: Decreased Breath Sounds, Crackles (BLL, RML), Other (Increased respiratory effort, but resting comfortably). No: Wheezing Cardiovascular: Regular Rate, Regular Rhythm GI/Abdominal Exam: Normal Bowel Sounds, Soft, Non-Tender, No Distention Peripheral Pulses: 2+: Radial (L), Radial (R) Sepsis Event Note - Evaluation Sepsis Screening Result: Severe Sepsis Risk - Focused Exam Vital Signs: Vital Signs Temp Pulse Resp BP Pulse Ox Pulse Ox 06/28/20 13:30 68 29 H 112/49 L 95 06/28/20 13:00 90 L 06/28/20 12:30 67 28 H 119/47 L 90 L 06/28/20 11:00 92 L 06/28/20 10:30 68 30 H 132/65 93 L 06/28/20 09:30 67 31 H 117/49 L 91 L 06/28/20 09:00 88 L 06/28/20 08:30 64 29 H 122/46 L 87 L 06/28/20 08:00 97.4 F 63 26 H 102/37 L 87 L 88 L 06/28/20 07:07 89 L 06/28/20 06:10 90 L 06/28/20 06:00 66 06/28/20 04:00 64 110/59 L 91 L 06/28/20 02:35 91 L - Problem List & Annotations (1) COVID-19 SNOMED Code(s): 496146649 Code(s): U07.1 - COVID-19 Status: Acute Current Visit: Yes (2) Viral pneumonia SNOMED Code(s): 70616496 Code(s): J12.9 - VIRAL PNEUMONIA, UNSPECIFIED Status: Acute Current Visit: Yes (3) Hypoxic SNOMED Code(s): 323401792 Code(s): R09.02 - HYPOXEMIA Status: Acute Current Visit: Yes Monserrat otation/Comment:: on BiPAP (4) Diabetes SNOMED Code(s): 14674080 Code(s): E11.9 - TYPE 2 DIABETES MELLITUS WITHOUT COMPLICATIONS Status: Chronic Current Visit: Yes Qualifiers: Diabetes mellitus fci insulin use: with extermination supervisor use (5) GERD (gastroesophageal reflux disease) SNOMED Code(s): 322628292 Code(s): K21.9 - GASTRO-ESOPHAGEAL REFLUX DISEASE WITHOUT ESOPHAGITIS Status: Chronic Priority: Medium Current Visit: No Qualifiers: Esophagitis presence: with esophagitis (6) Neurocognitive deficits SNOMED Code(s): 963200177 Code(s): R29.818 - OTHER SYMPTOMS AND SIGNS INVOLVING THE NERVOUS SYSTEM; R41.89 - OTH SYMPTOMS AND SIGNS W COGNITIVE FUNCTIONS AND AWARENESS Status: Chronic Current Visit: Yes (7) Palliative care patient SNOMED Code(s): 120842034, 329777834 Code(s): Z51.5 - ENCOUNTER FOR PALLIATIVE CARE Status: Chronic Current Visit: Yes (8) CHF (congestive heart failure) SNOMED Code(s): 22126618 Code(s): I50.9 - HEART FAILURE, UNSPECIFIED Status: Chronic Current Visit: Yes Qualifiers: Heart failure type: unspecified Annotation/Comment:: Echo in 09/2017, EF of 65% (9) Delirium with dementia SNOMED Code(s): 422191281 Code(s): R41.0 - DISORIENTATION, UNSPECIFIED Status: Acute Current Visit: Yes (10) Generalized weakness SNOMED Code(s): 75759093 Code(s): R53.1 - WEAKNESS Status: Acute Current Visit: Yes (11) Recurrent falls SNOMED Code(s): 581755963 Code(s): R29.6 - REPEATED FALLS Status: Acute Current Visit: Yes - Problem List Review Problem List Initiated/Reviewed/Updated: Yes - My Orders Last 24 Hours: My Active Orders 06/27/20 16:45 QUEtiapine [SEROqueL] 25 mg PO BID PRN 06/27/20 16:51 Morphine 2 mg IVPUSH Q1H PRN 06/27/20 18:00 Enoxaparin [Lovenox] 40 mg SUBCUT DAILY@1800 06/28/20 09:00 dexAMETHasone 6 mg IVPUSH DAILY - Plan Plan:: 1. COVID viral pneumonia: BiPAP, at 94% but bouncing down to 88, unable to wean at this time. Encourage water, tried high-flow nasal cannula so he could have lunch but he dropped into the 70s. Continue to try to give oral intake. Repeat labs tomorrow. 2. DM: Accuchecks qidac&hs, Consistent carb diet, Lantus 10 units bid, Humalog high dose sliding scale. 3. DVT: Vinicio BLE, Lovenox 40 mg sq daily at 1600. 4. He is maintaining currently, not eating very much. His pacemaker is firing 80-100%, discussed with family whether they wanted us to turn his pacemaker off, they will discuss amongst themselves and let us know. Poor prognosis, they would like spiritual services to continue to visit patient. His and son now have Covid they both were with him the week prior to admission.
[2020-06-28] MEDS: Enoxaparin 40 MG/0.4 ML Syringe SUBCUT SCH (17:29)
[2020-06-28] MEDS: Pantoprazole 40 MG Tab.CR PO SCH (20:47)
[2020-06-29] MEDS: Morphine 2 MG/ML SYRINGE IVPUSH PRN ×9 (00:40→23:38)
[2020-06-29] MEDS: Sodium Chloride 0.9% 10 ML Syringe FLUSH PRN ×7 (00:41→23:40)
[2020-06-29] MEDS: Budesonide 0.5 MG/2 ML Neb Susp NEB SCH ×2 (06:01→23:37)
[2020-06-29] MEDS: Insulin Lispro 100 Unit/ML 3 ML KwikPen SUBCUT SCH ×2 (07:26→11:27)
[2020-06-29] MEDS: Dexamethasone 4 MG/ML 5 ML MDV IVPUSH SCH (09:30)
[2020-06-29] MEDS ORDERED: cefTRIAXone 1 GM Vial IVPUSH SCH (09:45)
[2020-06-29] MEDS: Metoprolol Succinate 25 MG Tab.ER PO SCH (09:46)
[2020-06-29] MEDS: Insulin Glargine,Human Rec. Analog 100 Units/ML 3 ML Pen SUBCUT SCH (09:57)
[2020-06-29] MEDS ORDERED: Azithromycin 500 MG in Sodium Chloride 0.9% 250 ML IV SCH (10:00)
--- NOTE | 2020-06-29 15:10 | PCM.PN ---
- General Info Date of Service: 06/29/20 Subjective Update: Alexandru's oxygen has been fluctuating, in low 90s when I was assessing but has dropped into 88, sometimes into the 70s. Not drinking much. Complaining of being hot and cold. More agitated. WBC went up today. Check with pacemaker clinic stated he has a dual chamber but no defibrillator so does not need to be turned off. Family wants to take one day at a time, they do not want to make him comfort measures at this time. - Patient Data Vitals - Most Recent: Last Vital Signs Temp 97.8 F 06/29/20 04:00 Pulse 64 06/29/20 08:00 Resp 24 H 06/29/20 08:00 BP 148/74 H 06/29/20 08:00 Pulse Ox 97 06/29/20 08:00 Weight - Most Recent: 241 lb 14.4 oz I&O - Last 24 Hours: Intake & Output 06/29/20 06/29/20 06/29/20 06:59 14:59 22:59 Intake Total 150 Balance 150 Lab Results Last 24 Hours: Laboratory Results - last 24 hr 06/28/20 06/28/20 06/29/20 Range/Units 17:25 20:50 06:31 WBC (3.2-10.1) x10-3/uL RBC (3.90-5.90) x10(6)uL Hgb (12.9-17.7) g/dL Hct (38.3-50.1) % MCV (80.8-98.7) fL MCH (27.0-33.3) pg MCHC (28.7-35.3) g/dL RDW (12.4-15.0) % Plt Count (117-477) x10(3)uL MPV (6.7-11.0) fL Neut % (Auto) (40.3-71.8) % Lymph % (Auto) (15.8-45.3) % Meagher % (Auto) (5.5-15.2) % Eos % (Auto) (0.1-6.8) % Baso % (Auto) (0.3-3.8) % Neut # (Auto) (1.7-6.9) x10-3/uL Lymph # (Auto) (0.5-4.5) x10-3/uL Meagher # (Auto) (0.0-1.2) x10-3/uL Eos # (Auto) (0.0-0.6) x10-3/uL Baso # (Auto) (0.0-0.3) x10-3/uL Sodium (135-145) mmol/L Potassium (3.5-5.3) mmol/L Chloride (100-110) mmol/L Carbon Dioxide (21-32) mmol/L BUN (7-18) mg/dL Creatinine (0.70-1.30) mg/dL Est Cr Clr Drug Dosing mL/min Estimated GFR (MDRD) (>60) BUN/Creatinine Ratio (9-20) Glucose (80-116) mg/dL POC Glucose 205 H 214 H 216 H (74-100) mg/dL Calcium (8.6-10.2) mg/dL 06/29/20 06/29/20 06/29/20 Range/Units 06:40 06:40 11:25 WBC 11.2 H (3.2-10.1) x10-3/uL RBC 4.84 (3.90-5.90) x10(6)uL Hgb 13.4 (12.9-17.7) g/dL Hct 41.5 (38.3-50.1) % MCV 85.7 (80.8-98.7) fL MCH 27.6 (27.0-33.3) pg MCHC 32.2 (28.7-35.3) g/dL RDW 15.9 H (12.4-15.0) % Plt Count 87 L (117-477) x10(3)uL MPV 8.8 (6.7-11.0) fL Neut % (Auto) 93.0 H (40.3-71.8) % Lymph % (Auto) 3.0 L (15.8-45.3) % Meagher % (Auto) 3.6 L (5.5-15.2) % Eos % (Auto) 0.3 (0.1-6.8) % Baso % (Auto) 0.1 L (0.3-3.8) % Neut # (Auto) 10.4 H (1.7-6.9) x10-3/uL Lymph # (Auto) 0.3 L (0.5-4.5) x10-3/uL Meagher # (Auto) 0.4 (0.0-1.2) x10-3/uL Eos # (Auto) 0.0 (0.0-0.6) x10-3/uL Baso # (Auto) 0.0 (0.0-0.3) x10-3/uL Sodium 145 D (135-145) mmol/L Potassium 4.2 (3.5-5.3) mmol/L Chloride 109 D (100-110) mmol/L Carbon Dioxide 23 (21-32) mmol/L BUN 22 H (7-18) mg/dL Creatinine 1.2 (0.70-1.30) mg/dL Est Cr Clr Drug Dosing 59.19 mL/min Estimated GFR (MDRD) 59 L (>60) BUN/Creatinine Ratio 18.3 (9-20) Glucose 266 H (80-116) mg/dL POC Glucose 280 H (74-100) mg/dL Calcium 8.0 L (8.6-10.2) mg/dL Med Orders - Current: Current Medications Acetaminophen (Tylenol) 650 mg PO Q4H PRN PRN Reason: Pain (Mild 1-3)/fever Last Admin: 06/23/20 02:27 Dose: 650 mg Documented by: Albuterol (Proventil Neb Soln) 2.5 mg NEB Q4H PRN PRN Reason: Shortness of Breath Last Admin: 06/28/20 02:34 Dose: 2.5 mg Documented by: Budesonide (Pulmicort) 0.5 mg NEB BIDRT [facility] Last Admin: 06/29/20 06:01 Dose: 0.5 mg Documented by: Calcium Carbonate/Glycine (Tums) 500 mg PO Q2H PRN PRN Reason: Indigestion Last Admin: 06/24/20 10:36 Dose: 500 mg Documented by: Ceftriaxone Sodium (Rocephin) 1 gm IVPUSH Q24H [facility] Last Admin: 06/29/20 10:11 Dose: 1 gm Documented by: Dexamethasone (Dexamethasone) 6 mg IVPUSH DAILY [facility] Stop: 07/01/20 09:01 Last Admin: 06/29/20 09:30 Dose: 6 mg Documented by: Dextrose/Water (Dextrose 50% In Water) 50 ml IVPUSH ASDIRECTED PRN PRN Reason: Hypoglycemia Enoxaparin Sodium (Lovenox) 40 mg SUBCUT DAILY@1800 [facility] Last Admin: 06/28/20 17:29 Dose: 40 mg Documented by: Glucagon (Glucagen) 1 mg IM ASDIRECTED PRN PRN Reason: Hypoglycemia Azithromycin 500 mg/ Sodium (Chloride) 250 mls @ 250 mls/hr IV Q24H [facility] Last Admin: 06/29/20 10:13 Dose: 250 mls/hr Documented by: Insulin Glargine (Lantus Solostar) 10 units SUBCUT BID [facility] Last Admin: 06/29/20 09:57 Dose: 10 units Documented by: Insulin Human Lispro (Humalog) 0 unit SUBCUT TIDMEALS [facility]; Protocol Last Admin: 06/29/20 11:27 Dose: 9 units Documented by: Metoprolol Succinate (Toprol Xl) 25 mg PO DAILY [facility] Last Admin: 06/29/20 09:46 Dose: Not Given Documented by: Morphine Sulfate (Morphine) 2 mg IVPUSH Q1H PRN PRN Reason: air hunger Last Admin: 06/29/20 13:55 Dose: 2 mg Documented by: Nitroglycerin (Nitrostat) 0.4 mg SL ASDIRECTED PRN PRN Reason: Chest Pain Pantoprazole Sodium (Protonix) 40 mg PO BEDTIME [facility] Last Admin: 06/28/20 20:47 Dose: 40 mg Documented by: Quetiapine Fumarate (Seroquel) 25 mg PO BID PRN PRN Reason: DELIRIUM Last Admin: 06/27/20 20:02 Dose: 25 mg Documented by: Sodium Chloride (Saline Flush) 10 ml FLUSH ASDIRECTED PRN PRN Reason: Keep Vein Open Last Admin: 06/29/20 13:55 Dose: 10 ml Documented by: Discontinued Medications Albuterol (Ventolin Hfa) 0 gm INH Q4H PRN PRN Reason: Wheezing Atorvastatin Calcium (Lipitor) 40 mg PO BEDTIME [facility] Last Admin: 06/26/20 20:17 Dose: 40 mg Documented by: Clopidogrel Bisulfate (Plavix) 75 mg PO DAILY [facility] Last Admin: 06/26/20 08:22 Dose: 75 mg Documented by: Dexamethasone (Dexamethasone) 6 mg IVPUSH DAILY [facility] Stop: 07/01/20 17:16 Last Admin: 06/25/20 08:58 Dose: 6 mg Documented by: Diphenhydramine HCl (Benadryl) 50 mg PO ONETIME ONE Stop: 06/27/20 09:01 Last Admin: 06/27/20 08:51 Dose: 50 mg Documented by: Donepezil HCl (Aricept) 5 mg PO BEDTIME [facility] Last Admin: 06/26/20 20:16 Dose: 5 mg Documented by: Glipizide (Glucotrol Xl) 10 mg PO BID [facility] Last Admin: 06/21/20 20:15 Dose: Not Given Documented by: Heparin Sodium (Porcine) (Heparin Sodium) 5,000 units IVPUSH ONETIME ONE Stop: 06/26/20 10:46 Last Admin: 06/26/20 11:01 Dose: 5,000 units Documented by: Hydroxyzine HCl (Atarax) 25 mg PO BEDTIME PRN PRN Reason: Insomnia Last Admin: 06/23/20 21:37 Dose: 25 mg Documented by: Sodium Chloride (Normal Saline) 1,000 mls @ 75 mls/hr IV ASDIRECTED [facility] Last Infusion: 06/25/20 13:05 Dose: 50 mls/hr Documented by: Remdesivir 200 mg/ Sodium (Chloride) 250 mls @ 200 mls/hr IV ONETIME ONE Stop: 06/21/20 21:01 Last Admin: 06/21/20 20:23 Dose: 200 mls/hr Documented by: Remdesivir 100 mg/ Sodium (Chloride) 100 mls @ 100 mls/hr IV Q24H [facility] Stop: 06/25/20 18:59 Last Admin: 06/25/20 17:11 Dose: 100 mls/hr Documented by: Heparin Sodium/Sodium Chloride (Heparin 25,000 Units In 1/2 Ns 500 Ml) 25,000 units in 500 mls @ 25.983 mls/hr IV TITRATE [facility]; Protocol Last Admin: 06/27/20 09:01 Dose: 9.84 units/kg/hr, 21.594 mls/hr Documented by: Insulin Glargine (Lantus Solostar) 20 units SUBCUT BID [facility] Last Admin: 06/21/20 20:26 Dose: 20 unit Documented by: Insulin Glargine (Lantus Solostar) 20 units SUBCUT BID [facility] Last Admin: 06/27/20 09:54 Dose: Not Given Documented by: Iopamidol (Isovue-370 (76%)) 100 ml IV . DIRECTED ONE Stop: 06/27/20 09:43 Last Admin: 06/27/20 10:32 Dose: 100 ml Documented by: Lorazepam (Ativan) 1 mg IVPUSH ONETIME ONE Stop: 06/27/20 00:09 Last Admin: 06/27/20 00:16 Dose: 1 mg Documented by: Lorazepam (Ativan) Confirm Administered Dose 2 mg .ROUTE .STK-MED ONE Stop: 06/27/20 00:11 Last Admin: 06/27/20 00:17 Dose: Not Given Documented by: Lorazepam (Ativan) 1 mg IVPUSH Q2H PRN PRN Reason: Anxiety Last Admin: 06/27/20 14:57 Dose: 1 mg Documented by: Morphine Sulfate (Morphine) Confirm Administered Dose 2 mg .ROUTE .STK-MED ONE Stop: 06/26/20 23:26 Last Admin: 06/26/20 23:49 Dose: Not Given Documented by: Morphine Sulfate (Morphine) 2 mg IVPUSH ONETIME ONE Stop: 06/26/20 23:29 Last Admin: 06/26/20 23:28 Dose: 2 mg Documented by: Morphine Sulfate (Morphine) 2 mg IVPUSH Q2H PRN PRN Reason: air hunger Last Admin: 06/27/20 16:19 Dose: 2 mg Documented by: Olanzapine (Zyprexa) 5 mg IM ONETIME ONE Stop: 06/27/20 01:13 Last Admin: 06/27/20 01:22 Dose: 5 mg Documented by: Ondansetron HCl (Zofran Odt) 4 mg PO Q6H PRN PRN Reason: nausea, able to take PO Potassium Chloride (Klor-Con M20) 20 meq PO BID [facility] Last Admin: 06/27/20 08:51 Dose: 20 meq Documented by: Prednisone (Prednisone) 50 mg PO TID@0300,0900,2100 [facility] Stop: 06/27/20 09:01 Last Admin: 06/27/20 08:52 Dose: 50 mg Documented by: Sitagliptin Phosphate (Januvia) 100 mg PO DAILY [facility] Last Admin: 06/22/20 09:03 Dose: 100 mg Documented by: Sodium Chloride (Saline Flush) 10 ml FLUSH ASDIRECTED PRN PRN Reason: Keep Vein Open - Exam Quality Assessment: Supplemental Oxygen (BiPAP) General: Mild Distress Lungs: Clear to Auscultation (BUL), Decreased Breath Sounds (RLL), Crackles (LLL), Other (Increased respiratory effort). No: Wheezing Cardiovascular: Regular Rate, Regular Rhythm GI/Abdominal Exam: Normal Bowel Sounds, Soft, Non-Tender, No Distention Skin: Warm, Dry, Ecchymosis (Right upper arm) Sepsis Event Note - Evaluation Sepsis Screening Result: No Definite Risk - Focused Exam Vital Signs: Vital Signs Temp Pulse Resp BP Pulse Ox Pulse Ox 06/29/20 08:00 64 24 H 148/74 H 94 L 97 06/29/20 06:41 64 06/29/20 06:01 63 06/29/20 05:00 63 06/29/20 04:00 97.8 F 65 29 H 112/52 L 90 L - Problem List & Annotations (1) Community acquired pneumonia SNOMED Code(s): 471116244 Code(s): J18.9 - PNEUMONIA, UNSPECIFIED ORGANISM Status: Acute Current Visit: Yes (2) Acute respiratory distress syndrome (ARDS) due to COVID-19 virus SNOMED Code(s): 509919783779922540 Code(s): U07.1 - COVID-19; J80 - ACUTE RESPIRATORY DISTRESS SYNDROME Status: Acute Current Visit: Yes (3) COVID-19 SNOMED Code(s): 266172572 Code(s): U07.1 - COVID-19 Status: Acute Current Visit: Yes (4) Viral pneumonia SNOMED Code(s): 19076299 Code(s): J12.9 - VIRAL PNEUMONIA, UNSPECIFIED Status: Acute Current Visit: Yes (5) Hypoxic SNOMED Code(s): 421629660 Code(s): R09.02 - HYPOXEMIA Status: Acute Current Visit: Yes Annotation/Comment:: on BiPAP (6) Diabetes SNOMED Code(s): 17557226 Code(s): E11.9 - TYPE 2 DIABETES MELLITUS WITHOUT COMPLICATIONS Status: Chronic Current Visit: Yes Qualifiers: Diabetes mellitus shelter insulin use: with shelter use (7) GERD (gastroesophageal reflux disease) SNOMED Code(s): 174954389 Code(s): K21.9 - GASTRO-ESOPHAGEAL REFLUX DISEASE WITHOUT ESOPHAGITIS Status: Chronic Priority: Medium Current Visit: No Qualifiers: Esophagitis presence: with esophagitis (8) Neurocognitive deficits SNOMED Code(s): 239026842 Code(s): R29.818 - OTHER SYMPTOMS AND SIGNS INVOLVING THE NERVOUS SYSTEM; R41.89 - OTH SYMPTOMS AND SIGNS W COGNITIVE FUNCTIONS AND AWARENESS Status: Chronic Current Visit: Yes (9) Palliative care patient SNOMED Code(s): 293865088, 415925456 Code(s): Z51.5 - ENCOUNTER FOR PALLIATIVE CARE Status: Chronic Current Visit: Yes (10) CHF (congestive heart failure) SNOMED Code(s): 74800526 Code(s): I50.9 - HEART FAILURE, UNSPECIFIED Status: Chronic Current Visit: Yes Qualifiers: Heart failure type: unspecified Annotation/Comment:: Echo in 09/2017, EF of 65% (11) Delirium with dementia SNOMED Code(s): 930117236 Code(s): R41.0 - DISORIENTATION, UNSPECIFIED Status: Acute Current Visit: Yes (12) Generalized weakness SNOMED Code(s): 84251961 Code(s): R53.1 - WEAKNESS Status: Acute Current Visit: Yes (13) Recurrent falls SNOMED Code(s): 207925600 Code(s): R29.6 - REPEATED FALLS Status: Acute Current Visit: Yes - Problem List Review Problem List Initiated/Reviewed/Updated: Yes - My Orders Last 24 Hours: My Active Orders 06/29/20 09:45 cefTRIAXone [Rocephin] 1 gm IVPUSH Q24H 06/29/20 10:00 Azithromycin [Zithromax] 500 mg Sodium Chloride 0.9% [Normal Saline (AdvBag)] 250 ml IV Q24H 06/30/20 06:00 BASIC METABOLIC PANEL,BMP [CHEM] Routine CBC WITH AUTO DIFF [HEME] Routine - Plan Plan:: 1. COVID viral pneumonia/ARDS: BiPAP, at 92% but bouncing down to 88 & 70s, unable to wean at this time. Continue to try to give oral intake. Repeat labs tomorrow. 2. CAP: Rocephin & Azithromycin started today, WBC bumped up to 11.2. 2. DM: Accuchecks qidac&hs, Consistent carb diet, Lantus 10 units bid, Humalog high dose sliding scale. 3. DVT: TEDs BLE, Lovenox 40 mg sq daily at 1600. Platelets down to 87 but per covid management protocol, contraindicated <25-30K, active bleeding then would need to switch to SCDs. 4. He is maintaining currently, not eating very much. His pacemaker will not prolong his life, does not have defibrillator. Poor prognosis, they would like spiritual services to continue to visit patient. His and son now have Covid they both were with him the week prior to admission. They want to give him a chance to turn around, aware prognosis is poor. Do not want to change to comfort measures at this time.
[2020-06-29 23:47] VITALS: BP 105/42; PULSE 96
[2020-06-30] MEDS: Morphine 2 MG/ML SYRINGE IVPUSH PRN (00:11)
[2020-06-30] MEDS: Sodium Chloride 0.9% 10 ML Syringe FLUSH PRN (00:13)
--- NOTE | 2020-06-30 12:34 | PCM.DCSUM1 ---
Discharge Summary - Hospital Course HPI Initial Comments: Jose R was seen in [facility] today for 7 days of fever, fatigue, shortness of breath, cough, runny nose but no sore throat, chest pain, nausea, vomiting, diarrhea, constipation. Denies any dysuria, frequency, dark urine. States his last bowel movement was yesterday, yellow chunks but not liquid. Temp in clinic today was 101F, Covid was positive and had bilateral infiltrates on chest x-ray, no other labs done in clinic. He is very hard of hearing and has some neurocognitive deficits, on Aricept. History of Diabetes on insulin, poorly controlled, pacemaker, hypertension, cataract repair, colon polyps, GERD. Diagnosis: Stroke: No - Discharge Data Discharge Date: 06/30/20 Discharge Disposition: 20 Preliminary Cause of *Q: Respiratory Failure Event(s) Leading to Patient's *Q: Covid viral pneumonia, Acute respiratory distress syndrome, bacterial pneumonia, Acute respiratory failure, cardiopulmonary arrest Condition: - Referral to Home Health Primary Care Physician: Jose R Shahid MD - Discharge Diagnosis/Problem(s) (1) Community acquired pneumonia SNOMED Code(s): 356544344 ICD Code: J18.9 - PNEUMONIA, UNSPECIFIED ORGANISM Status: Acute (2) Acute respiratory distress syndrome (ARDS) due to COVID-19 virus SNOMED Code(s): 480025808475592565 ICD Code: U07.1 - COVID-19; J80 - ACUTE RESPIRATORY DISTRESS SYNDROME Status: Acute (3) COVID-19 SNOMED Code(s): 967589860 ICD Code: U07.1 - COVID-19 Status: Acute (4) Viral pneumonia SNOMED Code(s): 06074073 ICD Code: J12.9 - VIRAL PNEUMONIA, UNSPECIFIED Status: Acute (5) Hypoxic SNOMED Code(s): 596663233 ICD Code: R09.02 - HYPOXEMIA Status: Acute Problem Details: on BiPAP (6) Diabetes SNOMED Code(s): 30909357 ICD Code: E11.9 - TYPE 2 DIABETES MELLITUS WITHOUT COMPLICATIONS Status: Chronic Qualifiers: Diabetes mellitus assisted insulin use: with buttermaker helper use (7) GERD (gastroesophageal reflux disease) SNOMED Code(s): 279291382 ICD Code: K21.9 - GASTRO-ESOPHAGEAL REFLUX DISEASE WITHOUT ESOPHAGITIS Status: Chronic Priority: Medium Qualifiers: Esophagitis presence: with esophagitis (8) Neurocognitive deficits SNOMED Code(s): 861132809 ICD Code: R29.818 - OTHER SYMPTOMS AND SIGNS INVOLVING THE NERVOUS SYSTEM; R41.89 - OTH SYMPTOMS AND SIGNS W COGNITIVE FUNCTIONS AND AWARENESS Status: Chronic (9) Palliative care patient SNOMED Code(s): 490368095, 270998983 ICD Code: Z51.5 - ENCOUNTER FOR PALLIATIVE CARE Status: Chronic (10) CHF (congestive heart failure) SNOMED Code(s): 67046984 ICD Code: I50.9 - HEART FAILURE, UNSPECIFIED Status: Chronic Problem Details: Echo in 09/2017, EF of 65% Qualifiers: Heart failure type: unspecified (11) Delirium with dementia SNOMED Code(s): 307593586 ICD Code: R41.0 - DISORIENTATION, UNSPECIFIED Status: Acute (12) Generalized weakness SNOMED Code(s): 91529053 ICD Code: R53.1 - WEAKNESS Status: Acute (13) Recurrent falls SNOMED Code(s): 369964331 ICD Code: R29.6 - REPEATED FALLS Status: Acute - Patient Summary/Data Hospital Course: Alexandru was admitted from clinic for viral pneumonia secondary to Covid-19, had bilateral pneumonia on chest x-ray. Labs were drawn, creatinine was in range to start Remdesivir & Dexamethasone per protocol on admission. He was started on NS at 75 ml/hr for poor oral intake, required 5L of oxygen by nasal cannula. His sodium went up the next day so was switched to D5W, this was discontinued as patient was getting himself wrapped in the tubing to point it was safety hazard. His WBC was in normal to low range up to 06/29 when his WBC came up to 11.2 with elevated neutrophils. His platelets were low initially and came up briefly on 06/24 & 06/25. His procalcitonin was low at admission so antibiotics were not started until WBC went up on 06/29, Rocephin & Azithromycin were given x1. He was weaned down to 1L on 06/24 & 06/25, had improved his oral intake but more delirious, up at night and sleeping during the day. His stated this was what he did at home. Tried hydroxyzine at night but that made him quite sedated. Discontinued Dexamethasone on Friday due to delirium. He completed his Remdesivir treatment. The evening of the his desaturated, attempted high- flow oxygen at 10L, unable to maintain his saturations, was placed on BiPAP setting of 10/5 at 70% FiO2, he maintained in 90-94%. He was changed to ICU status. On 06/28 evening had episodes of desaturation even with titrating up FiO2 didn't change his saturations. His chest x-ray showed worsening normal and consistent with ARDS. He was initially full code per his PCP who sent from clinic, when discussing change of his condition with family they informed us that he did have an advance directive that he did not want CPR or ventilator so his code status was changed to DNR/DNI. Family did not want patient transferred. D Dimer was >35, due to his iodine allergy, was premedicated with Prednisone and Benadryl 13 hours prior to CTA. CT showed no pulmonary embolism but worsening pneumonia. He had been placed on Heparin drip per protocol prior to CT scan while awaiting results. No PE found so changed to Lovenox 40 mg SQ daily through 06/29. Dexamethasone was restarted after the Prednisone pretreatment was completed. His blood sugars were stable in the 200s. He was on Lantus 20 bid and Humalog sliding scale, adjusted for his sugars and eating. After he was placed on BiPAP, he required Morphine 2 mg and Seroquel 25 mg bid prn air hunger/agitation respectively. He also had ativan ordered but this made him more agitated so was discontinued. On afternoon of 06/29, he became more agitated, saying he wanted mask off and allowed to . Family was notified of this and they were in agreement with his wishes. BiPAP & quality assurance monitor final were removed, he was changed to comfort measures only. Morphine changed from q2h to q30min. Spiritual services had seen him on 06/27, 06/28 & 06/29, they were at bedside with him after he was made comfort measures. Family also spoke to him on the phone after BiPAP had been discontinued. He would not keep oxygen by nasal cannula on in evening. Had Morphine at 0011 on 06/30 for air hunger and moaning. He at 0016 on 06/30. Family was contacted soon after. - Discharge Plan *PRESCRIPTION DRUG MONITORING PROGRAM REVIEWED*: Not Applicable *COPY OF PRESCRIPTION DRUG MONITORING REPORT IN PATIENT FCO: Not Applicable - Discharge Summary/Plan Comment DC Time >30 min.: Yes - Patient Data Vitals - Most Recent: Last Vital Signs Temp 96.4 F L 06/29/20 21:00 Pulse 96 06/29/20 21:00 Resp 32 H 06/29/20 21:00 BP 105/42 L 06/29/20 21:00 Pulse Ox 55 L 06/29/20 21:00 Weight - Most Recent: 241 lb 14.4 oz Med Orders - Current: Current Medications Discontinued Medications Acetaminophen (Tylenol) 650 mg PO Q4H PRN PRN Reason: Pain (Mild 1-3)/fever Last Admin: 06/23/20 02:27 Dose: 650 mg Documented by: Albuterol (Ventolin Hfa) 0 gm INH Q4H PRN PRN Reason: Wheezing Albuterol (Proventil Neb Soln) 2.5 mg NEB Q4H PRN PRN Reason: Shortness of Breath Last Admin: 06/28/20 02:34 Dose: 2.5 mg Documented by: Atorvastatin Calcium (Lipitor) 40 mg PO BEDTIME [facility] Last Admin: 06/26/20 20:17 Dose: 40 mg Documented by: Budesonide (Pulmicort) 0.5 mg NEB BIDRT [facility] Last Admin: 06/29/20 23:37 Dose: Not Given Documented by: Calcium Carbonate/Glycine (Tums) 500 mg PO Q2H PRN PRN Reason: Indigestion Last Admin: 06/24/20 10:36 Dose: 500 mg Documented by: Ceftriaxone Sodium (Rocephin) 1 gm IVPUSH Q24H [facility] Last Admin: 06/29/20 10:11 Dose: 1 gm Documented by: Clopidogrel Bisulfate (Plavix) 75 mg PO DAILY [facility] Last Admin: 06/26/20 08:22 Dose: 75 mg Documented by: Dexamethasone (Dexamethasone) 6 mg IVPUSH DAILY [facility] Stop: 07/01/20 17:16 Last Admin: 06/25/20 08:58 Dose: 6 mg Documented by: Dexamethasone (Dexamethasone) 6 mg IVPUSH DAILY [facility] Stop: 07/01/20 09:01 Last Admin: 06/29/20 09:30 Dose: 6 mg Documented by: Dextrose/Water (Dextrose 50% In Water) 50 ml IVPUSH ASDIRECTED PRN PRN Reason: Hypoglycemia Diphenhydramine HCl (Benadryl) 50 mg PO ONETIME ONE Stop: 06/27/20 09:01 Last Admin: 06/27/20 08:51 Dose: 50 mg Documented by: Donepezil HCl (Aricept) 5 mg PO BEDTIME [facility] Last Admin: 06/26/20 20:16 Dose: 5 mg Documented by: Enoxaparin Sodium (Lovenox) 40 mg SUBCUT DAILY@1800 [facility] Last Admin: 06/28/20 17:29 Dose: 40 mg Documented by: Glipizide (Glucotrol Xl) 10 mg PO BID [facility] Last Admin: 06/21/20 20:15 Dose: Not Given Documented by: Glucagon (Glucagen) 1 mg IM ASDIRECTED PRN PRN Reason: Hypoglycemia Heparin Sodium (Porcine) (Heparin Sodium) 5,000 units IVPUSH ONETIME ONE Stop: 06/26/20 10:46 Last Admin: 06/26/20 11:01 Dose: 5,000 units Documented by: Hydroxyzine HCl (Atarax) 25 mg PO BEDTIME PRN PRN Reason: Insomnia Last Admin: 06/23/20 21:37 Dose: 25 mg Documented by: Sodium Chloride (Normal Saline) 1,000 mls @ 75 mls/hr IV ASDIRECTED [facility] Last Infusion: 06/25/20 13:05 Dose: 50 mls/hr Documented by: Remdesivir 200 mg/ Sodium (Chloride) 250 mls @ 200 mls/hr IV ONETIME ONE Stop: 06/21/20 21:01 Last Admin: 06/21/20 20:23 Dose: 200 mls/hr Documented by: Remdesivir 100 mg/ Sodium (Chloride) 100 mls @ 100 mls/hr IV Q24H [facility] Stop: 06/25/20 18:59 Last Admin: 06/25/20 17:11 Dose: 100 mls/hr Documented by: Heparin Sodium/Sodium Chloride (Heparin 25,000 Units In 1/2 Ns 500 Ml) 25,000 units in 500 mls @ 25.983 mls/hr IV TITRATE [facility]; Protocol Last Admin: 06/27/20 09:01 Dose: 9.84 units/kg/hr, 21.594 mls/hr Documented by: Azithromycin 500 mg/ Sodium (Chloride) 250 mls @ 250 mls/hr IV Q24H [facility] Last Admin: 06/29/20 10:13 Dose: 250 mls/hr Documented by: Insulin Glargine (Lantus Solostar) 20 units SUBCUT BID [facility] Last Admin: 06/21/20 20:26 Dose: 20 unit Documented by: Insulin Glargine (Lantus Solostar) 20 units SUBCUT BID [facility] Last Admin: 06/27/20 09:54 Dose: Not Given Documented by: Insulin Glargine (Lantus Solostar) 10 units SUBCUT BID [facility] Last Admin: 06/29/20 09:57 Dose: 10 units Documented by: Insulin Glargine (Lantus Solostar) 300 units SUBCUT .STK-MED ONE Stop: 06/21/20 20:01 Insulin Human Lispro (Humalog) 0 unit SUBCUT TIDMEALS [facility]; Protocol Last Admin: 06/29/20 11:27 Dose: 9 units Documented by: Insulin Human Lispro (Humalog) 300 unit SUBCUT .STK-MED ONE Stop: 06/22/20 08:54 Iopamidol (Isovue-370 (76%)) 100 ml IV . DIRECTED ONE Stop: 06/27/20 09:43 Last Admin: 06/27/20 10:32 Dose: 100 ml Documented by: Lorazepam (Ativan) 1 mg IVPUSH ONETIME ONE Stop: 06/27/20 00:09 Last Admin: 06/27/20 00:16 Dose: 1 mg Documented by: Lorazepam (Ativan) Confirm Administered Dose 2 mg .ROUTE .STK-MED ONE Stop: 06/27/20 00:11 Last Admin: 06/27/20 00:17 Dose: Not Given Documented by: Lorazepam (Ativan) 1 mg IVPUSH Q2H PRN PRN Reason: Anxiety Last Admin: 06/27/20 14:57 Dose: 1 mg Documented by: Metoprolol Succinate (Toprol Xl) 25 mg PO DAILY [facility] Last Admin: 06/29/20 09:46 Dose: Not Given Documented by: Morphine Sulfate (Morphine) Confirm Administered Dose 2 mg .ROUTE .STK-MED ONE Stop: 06/26/20 23:26 Last Admin: 06/26/20 23:49 Dose: Not Given Documented by: Morphine Sulfate (Morphine) 2 mg IVPUSH ONETIME ONE Stop: 06/26/20 23:29 Last Admin: 06/26/20 23:28 Dose: 2 mg Documented by: Morphine Sulfate (Morphine) 2 mg IVPUSH Q2H PRN PRN Reason: air hunger Last Admin: 06/27/20 16:19 Dose: 2 mg Documented by: Morphine Sulfate (Morphine) 2 mg IVPUSH Q1H PRN PRN Reason: air hunger Last Admin: 06/29/20 13:55 Dose: 2 mg Documented by: Morphine Sulfate (Morphine) 2 mg IVPUSH Q30M PRN PRN Reason: air hunger Last Admin: 06/30/20 00:11 Dose: 2 mg Documented by: Nitroglycerin (Nitrostat) 0.4 mg SL ASDIRECTED PRN PRN Reason: Chest Pain Olanzapine (Zyprexa) 5 mg IM ONETIME ONE Stop: 06/27/20 01:13 Last Admin: 06/27/20 01:22 Dose: 5 mg Documented by: Ondansetron HCl (Zofran Odt) 4 mg PO Q6H PRN PRN Reason: nausea, able to take PO Pantoprazole Sodium (Protonix) 40 mg PO BEDTIME [facility] Last Admin: 06/28/20 20:47 Dose: 40 mg Documented by: Potassium Chloride (Klor-Con M20) 20 meq PO BID [facility] Last Admin: 06/27/20 08:51 Dose: 20 meq Documented by: Prednisone (Prednisone) 50 mg PO TID@0300,0900,2100 [facility] Stop: 06/27/20 09:01 Last Admin: 06/27/20 08:52 Dose: 50 mg Documented by: Quetiapine Fumarate (Seroquel) 25 mg PO BID PRN PRN Reason: DELIRIUM Last Admin: 06/27/20 20:02 Dose: 25 mg Documented by: Sitagliptin Phosphate (Januvia) 100 mg PO DAILY [facility] Last Admin: 06/22/20 09:03 Dose: 100 mg Documented by: Sodium Chloride (Saline Flush) 10 ml FLUSH ASDIRECTED PRN PRN Reason: Keep Vein Open Sodium Chloride (Saline Flush) 10 ml FLUSH ASDIRECTED PRN PRN Reason: Keep Vein Open Last Admin: 06/30/20 00:13 Dose: 10 ml Documented by:
== END 2020-06-30 00:16 | disposition expired | DRG 177 ==
LOC: FB.MS 16:32
PROVIDERS: ADMIT Family Medicine; ATTEND Family Medicine
PROC: XW033E5 Introduction of Remdesivir Anti-infective into Peripheral Vein, Percutaneous Approach, New Technology Group 5 (ICD-10-PCS; 2020-06-21)
PROC: 8E0ZXY6 Isolation (ICD-10-PCS; 2020-06-21)
PROC: 05HY33Z Insertion of Infusion Device into Upper Vein, Percutaneous Approach (ICD-10-PCS; principal; 2020-06-26)
PROC: 5A09457 Assistance with Respiratory Ventilation, 24-96 Consecutive Hours, Continuous Positive Airway Pressure (ICD-10-PCS; 2020-06-27)
DX: U07.1 COVID-19 (principal); J80 Acute respiratory distress syndrome; J12.82 Pneumonia due to coronavirus disease 2019; J15.9 Unspecified bacterial pneumonia; J18.9 Pneumonia, unspecified organism; N39.0 Urinary tract infection, site not specified; I67.82 Cerebral ischemia; I82.403 Acute embolism and thrombosis of unspecified deep veins of lower extremity, bilateral; F05 Delirium due to known physiological condition; K21.00 Gastro-esophageal reflux disease with esophagitis, without bleeding; R29.818 Other symptoms and signs involving the nervous system; R41.89 Other symptoms and signs involving cognitive functions and awareness; Z51.5 Encounter for palliative care; F03.90 Unspecified dementia, unspecified severity, without behavioral disturbance, psychotic disturbance, mood disturbance, and anxiety; R29.6 Repeated falls; R53.1 Weakness; I46.9 Cardiac arrest, cause unspecified; Z66 Do not resuscitate; H54.7 Unspecified visual loss; R45.1 Restlessness and agitation; E78.00 Pure hypercholesterolemia, unspecified; I11.0 Hypertensive heart disease with heart failure; I20.9 Angina pectoris, unspecified; K57.90 Diverticulosis of intestine, part unspecified, without perforation or abscess without bleeding; E11.65 Type 2 diabetes mellitus with hyperglycemia; H91.90 Unspecified hearing loss, unspecified ear; I50.9 Heart failure, unspecified; R10.13 Epigastric pain; T38.0X5A Adverse effect of glucocorticoids and synthetic analogues, initial encounter; Z99.81 Dependence on supplemental oxygen; Z88.0 Allergy status to penicillin; Z91.041 Radiographic dye allergy status; Z88.8 Allergy status to other drugs, medicaments and biological substances; Z98.49 Cataract extraction status, unspecified eye; I25.2 Old myocardial infarction; Z95.5 Presence of coronary angioplasty implant and graft; Z95.0 Presence of cardiac pacemaker; Z87.891 Personal history of nicotine dependence; Z80.0 Family history of malignant neoplasm of digestive organs; Z79.4 Long term (current) use of insulin; Z79.02 Long term (current) use of antithrombotics/antiplatelets; Z87.440 Personal history of urinary (tract) infections
CPT/HCPCS: 36410; 36415; 71045; 71275; 80048; 80053; 80076; 81001; 82565; 82803; 82962; 84145; 85025; 85379; 85730; 86140; 87086; 94150; 94640; 94660; 94760; 97165-GO; A9270-GY; J0456; J0696; J1100; J1644; J1650; J1815; J1815-GY; J2060; J2270; J3490; J7030; J7050; J7512; Q9967